=== PATIENT | female | born 1965 | race Caucasian/White ===

== ENCOUNTER 2020-02-17 13:30 | Outpatient (REF) | payer OTHER, SELFPAY ==
--- NOTE | 2020-02-17 | MM_ITS ---
EXAMINATION: MM SCREENING DIGITAL BREAST TOMOSYNTHESIS, BILATERAL CLINICAL INFORMATION: Screening. Asymptomatic. The lifetime risk of breast cancer based on the Tyrer-Cuzick Model is 12%. COMPARISON: Mammography: 12/08/2018, 10/16/2017, 10/03/2016 TECHNIQUE: Digital breast tomosynthesis is performed in both the craniocaudal and mediolateral oblique views along with computer-aided detection (CAD). Synthesized 2D images are generated from the tomosynthesis. FINDINGS: There are scattered areas of fibroglandular density (ACR BI-RADS breast composition Category b). There is no interval mass or architectural abnormality. Scattered punctate calcifications are similar to prior diagnostic exams. No significant changes from prior studies studies. No developing density. The axilla and skin contours are unremarkable. IMPRESSION: No significant changes from prior exams. ASSESSMENT: BI-RADS 2: Benign RECOMMENDATION: Routine annual mammography screening. This patient's information was entered into a reminder system with a target due date for their next mammogram.
== END 2020-02-17 13:31 | disposition home or self-care (01) ==
LOC: HO.MAMMO 13:30
PROVIDERS: PCP Internal Medicine; Visit Provider Internal Medicine
DX: Z12.31 Encounter for screening mammogram for malignant neoplasm of breast (principal)
CPT/HCPCS: 77063; 77067

== ENCOUNTER 2020-02-28 09:08 | Outpatient (REF) | payer OTHER, SELFPAY ==
[2020-02-28 09:41] LABS: MANUAL DIFF FLAG NO
[2020-02-28 09:54] LABS: Basophils Percent Auto 0.8 % (0-2); Eosinophils Percent Auto 0.6 % (0-4); Hematocrit 40.8 % (37-47); Hemoglobin 13.2 g/dl (12.0-16.0); Imm Gran Abs Auto 0.01 X10*3/uL (0.00-0.03); Imm Gran Pct Auto 0.2 % (0.0-0.4); Lymphocytes Absolute Auto 1.8 X10*3/uL (1.2-4.9); Lymphocytes Percent Auto 35.5 % (20-40); Mean Corpuscular HGB Conc 32.4 g/dl (31.0-35.0); Mean Corpuscular Hemoglobin 30.6 pg (27.0-33.0); Mean Corpuscular Volume 94.7 fL (80-98); Mean Platelet Volume 10.8 fL (9.4-12.3); Monocytes Absolute Auto 0.4 X10*3/uL (0.1-1.2); Monocytes Percent Auto 8.8 % (2-11); Neutrophils Absolute Auto 2.7 X10*3/uL (2.0-8.3); Neutrophils Percent Auto 54.1 % (45-73); Platelet Count 281 X10*3/uL (160-400); Red Blood Count 4.31 X10*6/uL (4.20-5.50); Red Cell Distribution Width 11.5 % (11.0-16.0)
[2020-02-28 10:23] LABS: Alanine Aminotransferase 15 U/L (0-31); Albumin Level 4.4 g/dL (3.5-5.0); Alkaline Phosphatase 80 U/L (39-117); Anion Gap 11 (12-20); Aspartate Amino Transferase 16 U/L (5-31); Bilirubin Total 0.7 mg/dL (0.0-1.0); Blood Urea Nitrogen 26 mg/dL (9-16); Calcium 9.4 mg/dL (8.4-10.2); Carbon Dioxide 31 mmol/L (22-29); Chloride 103 mmol/L (96-108); Cholesterol 233 mg/dL; Estimated Glomerular Filt Rate > 60; Glucose Fasting 100 mg/dL (60-99); HDL Cholesterol 77 mg/dL; LDL Cholesterol Calculated 132 mg/dl; Potassium 4.2 mmol/l (3.3-5.1); Sodium 141 mmol/L (135-145); Total Protein 7.2 g/dL (6.5-8.0); Triglycerides 120 mg/dL
[2020-02-28 10:41] LABS: Free T4 (Free Thyroxine) 1.54 ng/dL (0.71-1.85); Thyroid Stimulating Hormone 0.12 mIU/mL (0.32-4.0)
== END 2020-02-28 09:09 | disposition home or self-care (01) ==
LOC: HO.LAB 09:08
PROVIDERS: Absent Provider Internal Medicine Endocrinology, Diabetes & Metabolism; PCP Internal Medicine; Visit Provider Internal Medicine
DX: E78.5 Hyperlipidemia, unspecified (principal); R73.01 Impaired fasting glucose; E66.3 Overweight; K21.9 Gastro-esophageal reflux disease without esophagitis; E55.9 Vitamin D deficiency, unspecified; E89.0 Postprocedural hypothyroidism
CPT/HCPCS: 36415; 80053; 80061; 82306; 84439; 84443; 85025

== ENCOUNTER → 2020-03-13 11:06 | Outpatient (BNVA) | payer OTHER, MEDICARE, MEDICAID, SELFPAY | PROVIDERS: PCP Internal Medicine; Referring Provider Internal Medicine; Visit Provider Internal Medicine Endocrinology, Diabetes & Metabolism | DX: Z13.89 Encounter for screening for other disorder (principal) | CPT/HCPCS: 99212 ==

== ENCOUNTER 2020-05-29 09:06 | Outpatient (REF) | payer OTHER, SELFPAY ==
[2020-05-29 10:16] LABS: Free T4 (Free Thyroxine) 1.14 ng/dL (0.71-1.85); Thyroid Stimulating Hormone 0.49 uIU/mL (0.32-4.0)
== END 2020-05-29 09:07 | disposition home or self-care (01) ==
LOC: HO.LAB 09:06
PROVIDERS: PCP Internal Medicine; Visit Provider Internal Medicine Endocrinology, Diabetes & Metabolism
DX: E03.9 Hypothyroidism, unspecified (principal); E55.9 Vitamin D deficiency, unspecified
CPT/HCPCS: 36415; 84439; 84443

== ENCOUNTER 2020-07-26 09:26 | Outpatient (REF) | payer OTHER, SELFPAY ==
[2020-07-26 10:07] LABS: MANUAL DIFF FLAG NO
[2020-07-26 10:18] LABS: Basophils Percent Auto 0.8 % (0-2); Eosinophils Percent Auto 0.8 % (0-4); Hematocrit 39.3 % (37-47); Hemoglobin 12.5 g/dl (12.0-16.0); Imm Gran Abs Auto 0.02 X10*3/uL (0.00-0.03); Imm Gran Pct Auto 0.4 % (0.0-0.4); Lymphocytes Absolute Auto 1.8 X10*3/uL (1.2-4.9); Lymphocytes Percent Auto 34.5 % (20-40); Mean Corpuscular HGB Conc 31.8 g/dl (31.0-35.0); Mean Corpuscular Hemoglobin 30.7 pg (27.0-33.0); Mean Corpuscular Volume 96.6 fL (80-98); Mean Platelet Volume 10.5 fL (9.4-12.3); Monocytes Absolute Auto 0.4 X10*3/uL (0.1-1.2); Monocytes Percent Auto 7.5 % (2-11); Platelet Count 300 X10*3/uL (160-400); Red Blood Count 4.07 X10*6/uL (4.20-5.50); Red Cell Distribution Width 11.9 % (11.0-16.0); White Blood Count 5.3 X10*3/uL (4.8-10.8)
[2020-07-26 11:17] LABS: Alanine Aminotransferase 13 U/L (0-31); Albumin Level 4.1 g/dL (3.5-5.0); Alkaline Phosphatase 97 U/L (39-117); Anion Gap 16 (12-20); Aspartate Amino Transferase 18 U/L (5-31); Bilirubin Total 0.4 mg/dL (0.0-1.0); Blood Urea Nitrogen 22 mg/dL (9-16); Calcium 9.4 mg/dL (8.4-10.2); Carbon Dioxide 30 mmol/L (22-29); Chloride 102 mmol/L (96-108); Cholesterol 238 mg/dL; Estimated Glomerular Filt Rate > 60; Glucose Fasting 97 mg/dL (60-99); HDL Cholesterol 80 mg/dL; LDL Cholesterol Calculated 132 mg/dl; Potassium 4.8 mmol/L (3.3-5.1); Sodium 143 mmol/L (135-145); Total Protein 6.9 g/dL (6.5-8.0); Triglycerides 133 mg/dL
== END 2020-07-26 09:27 | disposition home or self-care (01) ==
LOC: HO.LAB 09:26
PROVIDERS: PCP Internal Medicine; Visit Provider Internal Medicine
DX: E78.00 Pure hypercholesterolemia, unspecified (principal); G25.81 Restless legs syndrome; K21.9 Gastro-esophageal reflux disease without esophagitis
CPT/HCPCS: 36415; 80053; 80061; 85025

== ENCOUNTER 2020-09-05 09:03 | Outpatient (REF) | payer OTHER, SELFPAY ==
--- NOTE | ~2020-09-05 | XR_ITS ---
EXAMINATION: XR SHOULDER, LEFT CLINICAL INFORMATION: Pain COMPARISON: None TECHNIQUE: AP external rotation, Grashey, scapular Y, and axillary views of the left shoulder. FINDINGS: Bone alignment is normal. No fracture or dislocation is seen. The glenohumeral joint is normal. There is arthritis at the acromioclavicular joint. Soft tissues are unremarkable. XR/XR shoulder LT min 2V IMPRESSION: Arthritis at the acromioclavicular joint.
[2020-09-05 10:18] LABS: Free T4 (Free Thyroxine) 1.15 ng/dL (0.71-1.85); Thyroid Stimulating Hormone 0.88 uIU/mL (0.32-4.0)
== END 2020-09-05 09:04 | disposition home or self-care (01) ==
LOC: HO.LAB 09:03
PROVIDERS: Absent Provider Internal Medicine Endocrinology, Diabetes & Metabolism; PCP Internal Medicine; Visit Provider Internal Medicine
DX: M25.512 Pain in left shoulder (principal); E55.9 Vitamin D deficiency, unspecified
CPT/HCPCS: 36415; 73030; 84439; 84443

== ENCOUNTER → 2020-09-11 11:02 | Outpatient (BNVA) | payer OTHER, SELFPAY | PROVIDERS: PCP Internal Medicine; Visit Provider Internal Medicine Endocrinology, Diabetes & Metabolism | DX: E89.0 Postprocedural hypothyroidism (principal); E55.9 Vitamin D deficiency, unspecified | CPT/HCPCS: 99212 ==

== ENCOUNTER 2020-11-13 08:52 | Outpatient (REF) | payer OTHER, SELFPAY ==
[2020-11-13 09:31] LABS: MANUAL DIFF FLAG NO
[2020-11-13 09:38] LABS: Basophils Percent Auto 0.7 % (0-2); Eosinophils Percent Auto 0.7 % (0-4); Hematocrit 39.8 % (37-47); Lymphocytes Absolute Auto 1.4 X10*3/uL (1.2-4.9); Mean Corpuscular HGB Conc 32.7 g/dl (31.0-35.0); Mean Corpuscular Hemoglobin 31.2 pg (27.0-33.0); Mean Corpuscular Volume 95.4 fL (80-98); Mean Platelet Volume 10.4 fL (9.4-12.3); Monocytes Absolute Auto 0.3 X10*3/uL (0.1-1.2); Monocytes Percent Auto 7.9 % (2-11); Neutrophils Absolute Auto 2.4 X10*3/uL (2.0-8.3); Neutrophils Percent Auto 56.7 % (45-73); Platelet Count 248 X10*3/uL (160-400); Red Blood Count 4.17 X10*6/uL (4.20-5.50); Red Cell Distribution Width 11.8 % (11.0-16.0); White Blood Count 4.2 X10*3/uL (4.8-10.8)
[2020-11-13 09:53] LABS: Alanine Aminotransferase 14 U/L (0-31); Albumin Level 4.2 g/dL (3.5-5.0); Alkaline Phosphatase 97 U/L (39-117); Anion Gap 13 (12-20); Aspartate Amino Transferase 16 U/L (5-31); Bilirubin Total 0.6 mg/dL (0.0-1.0); Blood Urea Nitrogen 23 mg/dL (9-16); Calcium 9.5 mg/dL (8.4-10.2); Carbon Dioxide 29 mmol/L (22-29); Chloride 104 mmol/L (96-108); Cholesterol 245 mg/dL; Estimated Glomerular Filt Rate > 60; Glucose Fasting 105 mg/dL (60-99); HDL Cholesterol 72 mg/dL; LDL Cholesterol Calculated 137 mg/dl; Potassium 4.3 mmol/L (3.3-5.1); Sodium 142 mmol/L (135-145); Total Protein 7.2 g/dL (6.5-8.0); Triglycerides 180 mg/dL
[2020-11-13 10:14] LABS: Free T4 (Free Thyroxine) 1.29 ng/dL (0.71-1.85); Thyroid Stimulating Hormone 1.04 uIU/mL (0.32-4.0); Vitamin D 25-OH Total 31.1 ng/mL (>30)
[2020-11-13 10:15] LABS: Free T4 (Free Thyroxine) 1.25 ng/dL (0.71-1.85); Thyroid Stimulating Hormone 1.03 uIU/mL (0.32-4.0)
== END 2020-11-13 08:53 | disposition home or self-care (01) ==
LOC: HO.LAB 08:52
PROVIDERS: Absent Provider Internal Medicine; PCP Internal Medicine; Visit Provider Internal Medicine Endocrinology, Diabetes & Metabolism
DX: E89.0 Postprocedural hypothyroidism (principal); E78.00 Pure hypercholesterolemia, unspecified; R73.01 Impaired fasting glucose; K21.9 Gastro-esophageal reflux disease without esophagitis; E66.3 Overweight; E55.9 Vitamin D deficiency, unspecified
CPT/HCPCS: 36415; 80053; 80061; 82306; 84439; 84443; 85025

== ENCOUNTER 2021-04-05 08:28 | Outpatient (REF) | payer OTHER, SELFPAY ==
[2021-04-05 09:39] LABS: MANUAL DIFF FLAG SCAN; Monocytes Absolute Auto 0.3 X10*3/uL (0.1-1.2); PLT CLUMP 1; SCAN SMEAR FLAG 1
[2021-04-05 09:41] LABS: Basophils Percent Auto 0.9 % (0-2); Eosinophils Percent Auto 0.9 % (0-4); Hematocrit 40.6 % (37.0-47.0); Hemoglobin 13.3 g/dl (12.0-16.0); Lymphocytes Absolute Auto 1.6 X10*3/uL (1.2-4.9); Lymphocytes Percent Auto 34.2 % (20-40); Mean Corpuscular HGB Conc 32.8 g/dl (31.0-35.0); Mean Corpuscular Hemoglobin 31.1 pg (27.0-33.0); Mean Corpuscular Volume 95.1 fL (80.0-98.0); Mean Platelet Volume 11.7 fL (9.4-12.3); Monocytes Percent Auto 7.5 % (2-11); Neutrophils Absolute Auto 2.6 x10*3/uL (2.0-8.3); Neutrophils Percent Auto 56.5 % (45-73); Platelet Count 154 X10*3/uL (160-400); Red Blood Count 4.27 X10*6/uL (4.20-5.50); Red Cell Distribution Width 11.9 % (11.0-16.0); White Blood Count 4.5 X10*3/uL (4.8-10.8)
[2021-04-05 10:06] LABS: SLIDE REVIEW VERIFIED
[2021-04-05 10:14] LABS: Appearance Urine CLEAR; Color Urine YELLOW; Glucose Urine UA NEG (NEG); Leukocyte Esterase Urine NEG (NEG); Nitrite Urine NEG (NEG); Specific Gravity - Urine 1.015 (1.005-1.025); Urine Blood NEG (NEG); Urine Ketones NEG (NEG); Urine Protein NEG (NEG-TRACE)
[2021-04-05 10:23] LABS: Alanine Aminotransferase 16 U/L (0-31); Albumin Level 4.2 g/dL (3.5-5.0); Alkaline Phosphatase 86 U/L (39-117); Anion Gap 12 (12-20); Aspartate Amino Transferase 23 U/L (5-31); Bilirubin Total 0.8 mg/dL (0.0-1.0); Blood Urea Nitrogen 21 mg/dL (9-16); Calcium 9.7 mg/dL (8.4-10.2); Carbon Dioxide 27 mmol/L (22-29); Chloride 105 mmol/L (96-108); Cholesterol 243 mg/dL; Estimated Glomerular Filt Rate > 60; Glucose Fasting 106 mg/dL (60-99); HDL Cholesterol 79 mg/dL; LDL Cholesterol Calculated 142 mg/dl; Potassium 4.2 mmol/L (3.3-5.1); Sodium 140 mmol/L (135-145); Total Protein 7.4 g/dL (6.5-8.0); Triglycerides 111 mg/dL
[2021-04-05 10:25] LABS: Free T4 (Free Thyroxine) 1.11 ng/dL (0.71-1.85); Thyroid Stimulating Hormone 2.59 uIU/mL (0.32-4.0)
[2021-04-05 10:35] LABS: Erythrocyte Sedimentation Rate 12 MM/HR (0-20)
== END 2021-04-05 08:29 | disposition home or self-care (01) ==
LOC: HO.LAB 08:28
PROVIDERS: PCP Internal Medicine; Visit Provider Internal Medicine
DX: R73.01 Impaired fasting glucose (principal); E03.9 Hypothyroidism, unspecified; M79.7 Fibromyalgia; E78.00 Pure hypercholesterolemia, unspecified; I10 Essential (primary) hypertension; K21.9 Gastro-esophageal reflux disease without esophagitis
CPT/HCPCS: 36415; 80053; 80061; 81003; 84439; 84443; 85025; 85652

== ENCOUNTER 2021-05-10 12:32 | Outpatient (REF) | payer OTHER, SELFPAY ==
--- NOTE | ~2021-05-10 | MM_ITS ---
EXAMINATION: MM SCREENING DIGITAL BREAST TOMOSYNTHESIS, BILATERAL CLINICAL INFORMATION: Screening. Asymptomatic. The lifetime risk of breast cancer based on the Tyrer-Cuzick Model is 9.5%. COMPARISON: Mammography: 02/17/2020 and studies dating back to 03/30/2012 TECHNIQUE: Digital breast tomosynthesis is performed in both the craniocaudal and mediolateral oblique views along with computer-aided detection (CAD). Synthesized 2-D images are generated from the tomosynthesis. Right exaggerated craniocaudal view also performed. FINDINGS: There are scattered areas of fibroglandular density (ACR BI-RADS breast composition Category b). There are some increasing calcifications seen about the anterior aspect of the left breast but which are seen to change configuration between craniocaudal and mediolateral oblique projections representing milk of calcium within microcysts. Within the deep medial aspect of the right breast, there is a 4 x 2 mm partially circumscribed density with a few calcifications which was not definitely seen on prior studies. Recommend spot magnification view in craniocaudal projection. On tomography, the lesion would seem to lie within the inferior aspect of the breast but does not appear to be included on the imaging in exaggerated craniocaudal view and mediolateral oblique projection. MM/MM tomosynthesis screening BI IMPRESSION: Bilateral increasing calcifications some of which appear to be related to milk of calcium in microcysts. Partially circumscribed density about the deep medial aspect of the right breast containing some calcifications for which spot magnification film is recommended. ASSESSMENT: BI-RADS 0: Incomplete - Need Additional Imaging Evaluation. RECOMMENDATION: 1. Additional views of the right breast (spot magnification view in craniocaudal projection). 2. Targeted ultrasound if warranted after review of the additional views. 3. Radiology department staff will contact the patient for additional imaging. This patient's information was entered into a reminder system with a target due date for their next mammogram.
== END 2021-05-10 12:33 | disposition home or self-care (01) ==
LOC: HO.MAMMO 12:32
PROVIDERS: Visit Provider Internal Medicine
DX: Z12.31 Encounter for screening mammogram for malignant neoplasm of breast (principal)
CPT/HCPCS: 77063; 77067

== ENCOUNTER 2021-06-19 12:48 | Outpatient (REF) | payer OTHER, SELFPAY ==
--- NOTE | ~2021-06-19 | MM_ITS ---
EXAMINATION: MM DIAGNOSTIC DIGITAL MAMMOGRAPHY, RIGHT CLINICAL INFORMATION: Recall from screening for question of punctate density with calcification posterior medial right breast on CC view. COMPARISON: Mammography: 05/10/2021 and prior studies dating back to 07/28/2015. TECHNIQUE: Digital mammography is performed in the following views: Spot magnification CC x2. FINDINGS: There are scattered areas of fibroglandular density (ACR BI-RADS breast composition Category b). The additional views demonstrate a punctate fibroglandular density in the area of recent imaging interest which is similar to prior exams dating back to 2016. There is no developing density or interval mass or architectural abnormality. There are no grouped pleomorphic or suspicious calcifications. Results are provided to the patient at time of visit. MM/MM added views RT IMPRESSION: No significant change from prior studies. ASSESSMENT: BI-RADS 2: Benign RECOMMENDATION: Routine annual mammography screening. This patient's information was entered into a reminder system with a target due date for their next mammogram.
== END 2021-06-19 12:49 | disposition home or self-care (01) ==
LOC: HO.MAMMO 12:48
PROVIDERS: PCP Internal Medicine; Visit Provider Internal Medicine
DX: R92.2 Inconclusive mammogram (principal)
CPT/HCPCS: 77065

== ENCOUNTER 2021-08-20 08:29 | Outpatient (REF) | payer OTHER, SELFPAY ==
[2021-08-20 09:46] LABS: Alanine Aminotransferase 17 U/L (0-31); Albumin Level 4.3 g/dL (3.5-5.0); Alkaline Phosphatase 86 U/L (39-117); Anion Gap 12 (12-20); Aspartate Amino Transferase 17 U/L (5-31); Bilirubin Total 0.6 mg/dL (0.0-1.0); Blood Urea Nitrogen 24 mg/dL (9-16); Carbon Dioxide 31 mmol/L (22-29); Chloride 101 mmol/L (96-108); Cholesterol 268 mg/dL; Estimated Glomerular Filt Rate > 60; Glucose Fasting 105 mg/dL (60-99); HDL Cholesterol 79 mg/dL; LDL Cholesterol Calculated 165 mg/dl; Potassium 4.5 mmol/L (3.3-5.1); Sodium 139 mmol/L (135-145); Total Protein 7.3 g/dL (6.5-8.0); Triglycerides 120 mg/dL
[2021-08-20 10:19] LABS: Vitamin D 25-OH Total 32.4 ng/mL (>30)
== END 2021-08-20 08:30 | disposition home or self-care (01) ==
LOC: HO.LAB 08:29
PROVIDERS: PCP Internal Medicine; Visit Provider Internal Medicine
DX: E03.9 Hypothyroidism, unspecified (principal); E55.9 Vitamin D deficiency, unspecified; E78.00 Pure hypercholesterolemia, unspecified
CPT/HCPCS: 36415; 80053; 80061; 82306; 84439; 84443

== ENCOUNTER → 2021-09-19 12:33 | Outpatient (BNVA) | payer OTHER, SELFPAY | PROVIDERS: PCP Internal Medicine; Visit Provider Internal Medicine Endocrinology, Diabetes & Metabolism | DX: E89.0 Postprocedural hypothyroidism (principal); E55.9 Vitamin D deficiency, unspecified | CPT/HCPCS: 99212 ==

== ENCOUNTER 2021-11-29 18:08 | Outpatient (REF) | payer OTHER, SELFPAY | END 2021-11-29 18:09 | disposition home or self-care (01) | LOC: HO.LNP 18:08 | PROVIDERS: Visit Provider Nurse Practitioner Family | DX: L98.9 Disorder of the skin and subcutaneous tissue, unspecified (principal) | CPT/HCPCS: 87071; 87205 ==

== ENCOUNTER → 2021-12-11 13:03 | Outpatient (BNVA) | payer OTHER, SELFPAY | PROVIDERS: PCP Internal Medicine; Visit Provider Surgery | DX: L72.3 Sebaceous cyst (principal); L08.9 Local infection of the skin and subcutaneous tissue, unspecified; F79 Unspecified intellectual disabilities; Z79.899 Other long term (current) drug therapy | CPT/HCPCS: 99202 ==

== ENCOUNTER → 2022-01-10 13:19 | Outpatient (BNVA) | payer OTHER, SELFPAY | PROVIDERS: PCP Internal Medicine; Visit Provider Surgery | DX: L72.3 Sebaceous cyst (principal); L08.9 Local infection of the skin and subcutaneous tissue, unspecified | CPT/HCPCS: 99212 ==

== ENCOUNTER 2022-07-01 09:45 | Outpatient (REF) | payer OTHER, SELFPAY ==
[2022-07-01 10:06] LABS: MANUAL DIFF FLAG NO
[2022-07-01 12:05] LABS: Basophils Percent Auto 0.8 % (0-2); Eosinophils Percent Auto 0.4 % (0-4); Hematocrit 38.9 % (37.0-47.0); Hemoglobin 12.6 g/dl (12.0-16.0); Imm Gran Abs Auto 0.01 X10*3/uL (0.00-0.03); Imm Gran Pct Auto 0.2 % (0.0-0.4); Lymphocytes Absolute Auto 1.9 X10*3/uL (1.2-4.9); Lymphocytes Percent Auto 37.6 % (20-40); Mean Corpuscular HGB Conc 32.4 g/dl (31.0-35.0); Mean Corpuscular Hemoglobin 30.7 pg (27.0-33.0); Mean Corpuscular Volume 94.6 fL (80.0-98.0); Mean Platelet Volume 10.7 fL (9.4-12.3); Monocytes Absolute Auto 0.5 X10*3/uL (0.1-1.2); Monocytes Percent Auto 8.9 % (2-11); Neutrophils Absolute Auto 2.6 x10*3/uL (2.0-8.3); Neutrophils Percent Auto 52.1 % (45-73); Platelet Count 294 X10*3/uL (160-400); Red Blood Count 4.11 X10*6/uL (4.20-5.50); Red Cell Distribution Width 11.9 % (11.0-16.0); White Blood Count 5.1 X10*3/uL (4.8-10.8)
[2022-07-01 12:20] LABS: Appearance Urine Clear; Color Urine Yellow; Glucose Urine UA Negative (Negative); Leukocyte Esterase Urine Trace (Negative); Nitrite Urine Negative (Negative); PH 6.5 (5.0-9.0); UMIC TRIGGER UACC YES; Urine Blood Negative (Negative); Urine Ketones Negative (Negative); Urine Protein Negative (Neg-Trace)
[2022-07-01 12:24] LABS: Bacteria Urine None Seen (None Seen); Hyaline Casts Urine 0-2 /LPF (0-2); RBC Urine 0-2 /HPF (0-2); Squamous Epithelial Cell Urine 0-2 /HPF (0-2); WBC Urine 0-5 /HPF (0-5)
[2022-07-01 13:10] LABS: Alanine Aminotransferase 13 U/L (0-31); Albumin Level 4.1 g/dL (3.5-5.0); Alkaline Phosphatase 81 U/L (39-117); Anion Gap 15 (12-20); Aspartate Amino Transferase 18 U/L (5-31); Bilirubin Total 0.7 mg/dL (0.0-1.0); Blood Urea Nitrogen 22 mg/dL (9-16); Calcium 9.4 mg/dL (8.4-10.2); Carbon Dioxide 29 mmol/L (22-29); Chloride 104 mmol/L (96-108); Cholesterol 271 mg/dL; Estimated Glomerular Filt Rate > 60; Glucose Fasting 96 mg/dL (60-99); HDL Cholesterol 76 mg/dL; LDL Cholesterol Calculated 173 mg/dl; Potassium 4.5 mmol/L (3.3-5.1); Sodium 143 mmol/L (135-145); Triglycerides 113 mg/dL
[2022-07-01 13:14] LABS: Free T4 (Free Thyroxine) 1.24 ng/dL (0.71-1.85); Vitamin D 25-OH Total 26.9 ng/mL (>30)
== END 2022-07-01 09:46 | disposition home or self-care (01) ==
LOC: HO.LAB 09:45
PROVIDERS: Internal Medicine Endocrinology, Diabetes & Metabolism; PCP Internal Medicine; Visit Provider Internal Medicine
DX: E03.9 Hypothyroidism, unspecified (principal); E55.9 Vitamin D deficiency, unspecified; I10 Essential (primary) hypertension; E78.00 Pure hypercholesterolemia, unspecified
CPT/HCPCS: 36415; 80053; 80061; 81001; 81003; 82306; 84439; 84443; 85025

== ENCOUNTER 2022-07-03 12:33 | Outpatient (REF) | payer OTHER, SELFPAY ==
--- NOTE | ~2022-07-03 | MM_ITS ---
EXAMINATION: MM SCREENING DIGITAL BREAST TOMOSYNTHESIS, BILATERAL CLINICAL INFORMATION: Screening. Asymptomatic. The lifetime risk of breast cancer based on the Tyrer-Cuzick Model is 11%. COMPARISON: Mammography: 06/19/2021, 05/10/2021, 02/17/2020 TECHNIQUE: Digital breast tomosynthesis is performed in both the craniocaudal and mediolateral oblique views along with computer-aided detection (CAD). Synthesized 2D images are generated from the tomosynthesis. Additional left MLO view is provided. FINDINGS: There are scattered areas of fibroglandular density (ACR BI-RADS breast composition Category b). There are no significant masses, abnormal calcifications, or other abnormalities. Parenchymal pattern is similar to prior studies. There is no developing density or architectural abnormality. The axilla and skin contours are unremarkable. No significant changes. MM/MM tomosynthesis screening BI IMPRESSION: No mammographic evidence of malignancy. ASSESSMENT: BI-RADS 1: Negative RECOMMENDATION: Routine annual mammography screening. This patient's information was entered into a reminder system with a target due date for their next mammogram.
== END 2022-07-03 12:34 | disposition home or self-care (01) ==
LOC: HO.MAMMO 12:33
PROVIDERS: PCP Internal Medicine; Visit Provider Internal Medicine
DX: Z12.31 Encounter for screening mammogram for malignant neoplasm of breast (principal)
CPT/HCPCS: 77063; 77067

== ENCOUNTER 2022-10-25 08:07 | Outpatient (REF) | payer OTHER, SELFPAY ==
[2022-10-25 09:28] LABS: Alanine Aminotransferase 15 U/L (0-31); Albumin Level 4.2 g/dL (3.5-5.0); Alkaline Phosphatase 84 U/L (39-117); Anion Gap 11 (12-20); Aspartate Amino Transferase 20 U/L (5-31); Bilirubin Total 0.7 mg/dL (0.0-1.0); Blood Urea Nitrogen 23 mg/dL (9-16); Calcium 9.7 mg/dL (8.4-10.2); Carbon Dioxide 29 mmol/L (22-29); Chloride 106 mmol/L (96-108); Cholesterol 223 mg/dL; Estimated Glomerular Filt Rate > 60; Glucose Fasting 107 mg/dL (60-99); HDL Cholesterol 79 mg/dL; LDL Cholesterol Calculated 124 mg/dl; Sodium 142 mmol/L (135-145); Total Protein 7.3 g/dL (6.5-8.0); Triglycerides 100 mg/dL
[2022-10-25 09:32] LABS: Thyroid Stimulating Hormone 15.54 uIU/mL (0.32-4.0)
[2022-10-27 01:48] LABS: Triiodothyronine T3 Total 74 ng/dL (76-181)
== END 2022-10-25 08:08 | disposition home or self-care (01) ==
LOC: HO.LAB 08:07
PROVIDERS: PCP Internal Medicine; Visit Provider Internal Medicine
DX: E89.0 Postprocedural hypothyroidism (principal); E78.00 Pure hypercholesterolemia, unspecified
CPT/HCPCS: 36415; 80053; 80061; 84439; 84443; 84480

== ENCOUNTER 2023-01-20 08:53 | Outpatient (REF) | payer OTHER, SELFPAY ==
[2023-01-20 10:46] LABS: Alanine Aminotransferase 15 U/L (0-31); Albumin Level 4.2 g/dL (3.5-5.0); Alkaline Phosphatase 89 U/L (39-117); Anion Gap 10 (12-20); Aspartate Amino Transferase 20 U/L (5-31); Bilirubin Total 0.4 mg/dL (0.0-1.0); Blood Urea Nitrogen 23 mg/dL (9-16); Calcium 9.5 mg/dL (8.4-10.2); Carbon Dioxide 29 mmol/L (22-29); Chloride 105 mmol/L (96-108); Cholesterol 277 mg/dL (<200); Estimated Glomerular Filt Rate 59; Glucose Fasting 96 mg/dL (60-99); HDL Cholesterol 82 mg/dL (>40); LDL Cholesterol Calculated 169 mg/dL (<100); Potassium 4.1 mmol/L (3.3-5.1); Sodium 140 mmol/L (135-145); Total Protein 7.3 g/dL (6.5-8.0); Triglycerides 130 mg/dL (<150)
[2023-01-20 11:01] LABS: Free T4 (Free Thyroxine) 0.69 ng/dL (0.71-1.85); Thyroid Stimulating Hormone 25.36 uIU/mL (0.32-4.0)
== END 2023-01-20 08:54 | disposition home or self-care (01) ==
LOC: HO.LAB 08:53
PROVIDERS: PCP Internal Medicine; Visit Provider Internal Medicine
DX: E03.9 Hypothyroidism, unspecified (principal); E78.00 Pure hypercholesterolemia, unspecified
CPT/HCPCS: 36415; 80053; 80061; 84439; 84443

== ENCOUNTER 2023-07-10 13:50 | Outpatient (REF) | payer OTHER, SELFPAY | END 2023-07-10 13:51 | disposition home or self-care (01) | LOC: HO.MAMMO 13:50 | PROVIDERS: PCP Internal Medicine; Visit Provider Internal Medicine | DX: Z12.31 Encounter for screening mammogram for malignant neoplasm of breast (principal) | CPT/HCPCS: 77063; 77067 ==

== ENCOUNTER → 2023-07-10 14:45 | Outpatient (BNV) | payer OTHER, SELFPAY | PROVIDERS: PCP Internal Medicine; Visit Provider Radiology Diagnostic Radiology | DX: Z12.31 Encounter for screening mammogram for malignant neoplasm of breast (principal) | CPT/HCPCS: 77063; 77067 ==

== ENCOUNTER 2023-07-28 08:31 | Outpatient (REF) | payer OTHER, SELFPAY ==
[2023-07-28 08:53] LABS: MANUAL DIFF FLAG NO
[2023-07-28 09:21] LABS: Basophils Absolute Auto 0.1 X10*3/uL (0.0-0.2); Basophils Percent Auto 1.1 % (0-2); Eosinophils Percent Auto 0.7 % (0-4); Hematocrit 37.9 % (37.0-47.0); Hemoglobin 12.3 g/dl (12.0-16.0); Imm Gran Abs Auto 0.01 X10*3/uL (0.00-0.03); Imm Gran Pct Auto 0.2 % (0.0-0.4); Lymphocytes Absolute Auto 1.6 X10*3/uL (1.2-4.9); Lymphocytes Percent Auto 34.4 % (20-40); Mean Corpuscular HGB Conc 32.5 g/dl (31.0-35.0); Mean Corpuscular Hemoglobin 31.3 pg (27.0-33.0); Mean Corpuscular Volume 96.4 fL (80.0-98.0); Mean Platelet Volume 9.9 fL (9.4-12.3); Monocytes Absolute Auto 0.4 X10*3/uL (0.1-1.2); Neutrophils Absolute Auto 2.5 x10*3/uL (2.0-8.3); Neutrophils Percent Auto 54.6 % (45-73); Platelet Count 296 X10*3/uL (160-400); Red Blood Count 3.93 X10*6/uL (4.20-5.50); Red Cell Distribution Width 11.9 % (11.0-16.0); White Blood Count 4.6 X10*3/uL (4.8-10.8)
[2023-07-28 09:53] LABS: Estimated Average Glucose 114 mg/dL; Hemoglobin A1c % 5.6 % (<6.0)
[2023-07-28 10:02] LABS: Alanine Aminotransferase 16 U/L (0-31); Alkaline Phosphatase 76 U/L (39-117); Anion Gap 12 (12-20); Aspartate Amino Transferase 19 U/L (5-31); Bilirubin Total 0.3 mg/dL (0.0-1.0); Blood Urea Nitrogen 28 mg/dL (9-16); Calcium 9.5 mg/dL (8.4-10.2); Carbon Dioxide 28 mmol/L (22-29); Chloride 105 mmol/L (96-108); Cholesterol 260 mg/dL (<200); Estimated Glomerular Filt Rate > 60; Glucose Fasting 107 mg/dL (60-99); HDL Cholesterol 88 mg/dL (>40); LDL Cholesterol Calculated 151 mg/dL (<100); Potassium 4.1 mmol/L (3.3-5.1); Sodium 141 mmol/L (135-145); Total Protein 7.2 g/dL (6.5-8.0); Triglycerides 108 mg/dL (<150)
[2023-07-28 10:14] LABS: Appearance Urine Clear; Color Urine Yellow; Glucose Urine UA Negative (Negative); Leukocyte Esterase Urine Trace (Negative); Nitrite Urine Negative (Negative); Specific Gravity - Urine 1.025 (1.005-1.025); UMIC TRIGGER UACC YES; Urine Blood Negative (Negative); Urine Ketones Negative (Negative); Urine Protein Negative (Neg-Trace)
[2023-07-28 10:18] LABS: Bacteria Urine None Seen (None Seen); Hyaline Casts Urine 0-2 /LPF (0-2); RBC Urine 0-2 /HPF (0-2); Squamous Epithelial Cell Urine 0-2 /HPF (0-2); WBC Urine 0-5 /HPF (0-5)
[2023-07-28 10:22] LABS: Free T4 (Free Thyroxine) 0.71 ng/dL (0.71-1.85); Thyroid Stimulating Hormone 16.58 uIU/mL (0.32-4.0); Vitamin D 25-OH Total 27.5 ng/mL (>30)
== END 2023-07-28 08:32 | disposition home or self-care (01) ==
LOC: HO.LAB 08:31
PROVIDERS: PCP Internal Medicine; Visit Provider Internal Medicine
DX: E55.9 Vitamin D deficiency, unspecified (principal); R30.0 Dysuria; E03.9 Hypothyroidism, unspecified; E78.00 Pure hypercholesterolemia, unspecified; R73.01 Impaired fasting glucose
CPT/HCPCS: 36415; 80053; 80061; 81001; 82306; 83036; 84439; 84443; 85025

== ENCOUNTER 2023-08-05 13:43 | Outpatient (AMB) | payer OTHER, SELFPAY ==
--- NOTE | 2023-08-05 13:46 | A.OFFPC_ITS ---
Vital Signs 08/05/23 13:48 Height 5 ft 4 in Weight 156 lb 8 oz BMI 26.9 BP 110/64 Blood Pressure Location Lt brachial Position Sitting Pulse 90 Pulse Source Pulse Oximeter Pulse Oximetry (%) 98 Oxygen Delivery Method Room Air Intake Visit Reasons: hyperlipidemia, hypothyroidism, RLS Intake Note: Patient is here to follow up on Hyperlipidemia, Hypothyroidism, RLS, IFG Building Economist Required: Yes Building Economist Language: Water Project Engineer Name: Patria (sister) Information Interpreted: non-clinical & clinical Continuity Editor: Present Accompanied by: Sister Allergies No Known Allergies Allergy (Verified 08/05/23 14:04) Medication List - Last Reconciled 08/05/23 by Juvencio Cortes MD atorvastatin 10 mg PO BEDTIME 90 days cholecalciferol (vitamin D3) 2,000 units PO DAILY 90 days levothyroxine 125 mcg PO DAILY 90 days pramipexole 1.5 mg PO BEDTIME Tobacco use date assessed: 08/05/23 Dental Screening Dental Screen Date: 08/05/23 Did you have a dental visit in the last 12 months?: Yes Did you have a dental problem in the last 6 months where you did not have access to dental care?: No Was dental information given to patient?: Patient has dentist HPI hyperlipidemia, hypothyroidism, RLS HPI Details Patient comes in today for her follow up visit States that she feels okay She denies any headaches or dizziness Denies any chest pains, no SOB No nausea/vomiting, no abdominal pain No change in bowel habits noted Had her follow up labs done last week - to discuss her results She would also like to request for Rx for some Multivitamins for her to take daily PFSH Medical History Intellectual disability Osteoarthritis of left shoulder Overweight (BMI 25.0-29.9) Depression Restless leg syndrome GERD without esophagitis Impaired fasting glucose Pure hypercholesterolemia Post-surgical hypothyroidism Vitamin D deficiency Surgical History Hx of thyroidectomy No pertinent past surgical history Family History Father Diabetes Mother Diabetes Hypertension Social History Housing: Apartment Alcohol intake: never Patient Tobacco Use Status: Never used Tobacco e-Cigarette/Vaping Use: Never Used Second Hand Smoke Exposure: No service: No Current occupational status: disabled Cognitive needs: No Hearing needs: No Vision needs: No Questionnaire PHQ-9 Over the last 2 weeks, how often have you been bothered by any of the following problems? 1. Little interest or pleasure in doing things: not at all 2. Feeling down, depressed, or hopeless: not at all 3. Trouble falling or staying asleep, or sleeping too much: not at all 4. Feeling tired or having little energy: not at all 5. Poor appetite or overeating: not at all 6. Feeling bad about yourself - or that you are a failure or have let yourself or your family down: not at all 7. Trouble concentrating on things, such as reading the newspaper or watching television: not at all 8. Moving or speaking so slowly that other people could have noticed. Or the opposite - being so fidgety or restless that you have been moving around a lot more than usual: not at all 9. Thoughts that you would be better off or of hurting yourself in some way: not at all Total score: 0 Depression Screening Interpretation: Negative Depression Screening Done: Yes 54076 - PHQ-9 Billing: Yes Source: Developed by Drs. Xavi Chan, Shelby Arenas, Christopher Gaspar and colleagues, with an educational samuel from [email or web address]. Thrive Questionnaire Date Thrive assessed: 08/05/23 I am a: Patient What is your living situation today?: I have a steady place to live Within the past 12 months, did the food you bought not last and you didn't have the money to get more?: Never true Within the past 12 months, did you worry whether your food would run out before you got money to buy more?: Never true Do you have trouble paying for medicines?: No Do you have trouble getting transportation to medical appointments?: No Do you have trouble paying your heating and electricity bill?: No Do you have trouble taking care of your child, family member or friend?: No Do you have trouble with day-to-day activities such as bathing, preparing meals, shopping, managing finances, etc.?: No Are you currently unemployed and looking for a job?: No Are you interested in more education?: No Currently or been in a relationship where the following occur: no concerns reported THRIVE Score: 0 AUDIT C Alcohol Use Questionnaire (AUDIT-C) 1. How often do you have a drink containing alcohol?: Never 3. How often do you have six or more drinks on one occasion?: Never Total Score: 0 Score Reviewed/Action Taken: Yes ARLEN-7 AMB Questionnaire ARLEN-7 Date ARLEN - 7 assessed: 08/05/23 Feeling nervous, anxious, or on edge: 0 = Not at all Not being able to stop or control worryin = Not at all Worrying too much about different things: 0 = Not at all Trouble relaxin = Not at all Being so restless that it is hard to sit still: 0 = Not at all Becoming easily annoyed or irritable: 0 = Not at all Feeling afraid as if something awful might happen: 0 = Not at all Total ARLEN-7 score (0-4 normal; 5-9 mild; 10-14 moderate; 15-21 severe): 0 Source: Developed by Drs. Xavi Chan, Shelby Arenas, Christopher Gaspar and colleagues, with an educational samuel from [email or web address]. Review of Systems Const Denies chills, Reports fatigue, Denies fever(s) and Denies headache(s) ENT Denies dysphagia, Denies dizziness, Denies otalgia, Denies headache(s), Denies odynophagia and Denies sore throat Card Denies chest pain, Denies palpitations and Denies dyspnea Resp Denies cough and Denies dyspnea GI Denies abdominal pain, Denies constipation, Denies dysphagia, Denies heartburn, Denies diarrhea, Denies nausea, Denies odynophagia and Denies vomiting Denies difficulty voiding, Denies dysuria and Denies urinary urgency Musc Denies back pain Skin/Breast Denies rash Neuro Denies dizziness and Denies headache(s) Endo Reports fatigue and Denies palpitations Physical exam (Primary Care) Vital Signs: Last Vital Signs Pulse 90 08/05/23 13:48 BP 110/64 08/05/23 13:48 Pulse Ox 98 08/05/23 13:48 Oxygen Delivery Method Room Air 04/02/24 13:48 BMI result Body Mass Index 26.9 Tobacco/Smoking Status: Tobacco use Status Tobacco use date assessed 08/05/23 08/05/23 13:52 Patient Tobacco Use Status Never used Tobacco 08/05/23 13:52 e-Cigarette/Vaping Use Never Used 08/05/23 13:52 PHQ-9: PHQ-9 Score PHQ-9: Total score 0 08/05/23 14:09 Depression Screening Interpretation: Negative Thrive Assessment: Date of Thrive Assessment Date Thrive assessed 08/05/23 08/05/23 13:52 Currently or been in a relationship where the following occur: no concerns reported Const General: no acute distress and alert HENMT Ears: TM's normal bilaterally and EAC's normal Throat: Yes posterior oropharynx normal and Yes tonsils normal (no TP congestion) Neck Neck: Yes no lymphadenopathy and Yes supple Resp Auscultation: clear to auscultation bilaterally, no rales and no wheezes Cardio Rate: regular rate Rhythm: regular rhythm Heart sounds: no murmurs GI Palpation (GI): Soft to palpation and nontender Auscultation: normal bowel sounds General: Yes no CVA tenderness Back/Spine/Pelvis Back: no CVA tenderness Skin Rashes: no rashes Extrem General: Yes no clubbing, cyanosis or edema Left upper extremity: shoulder/upper arm Details: tenderness (mild) Location: of the A-C joint and normal ROM Results Reviewed Results Reviewed: Laboratory Tests 10/25/22 07/28/23 07/28/23 08:19 08:20 08:51 WBC 4.6 L Hgb 12.3 Hct 37.9 Plt Count 296 Sodium 141 Potassium 4.1 Creatinine 0.92 Estimated GFR > 60 Fasting Glucose 107 H Hemoglobin A1c % 5.6 Calcium AST 19 ALT 16 Triglycerides 108 Cholesterol 260 H LDL Cholesterol, Calc 151 H HDL Cholesterol 88 25-OH Vitamin D Total 27.5 L TSH 16.58 H Free T4 0.71 Total T3 74 L Ur Specific [place] 1.025 Urine Protein Negative Urine Glucose (UA) Negative Urine Blood Negative Urine Nitrite Negative Ur Leukocyte Esterase Trace H 07/28/23 08:51 WBC Hgb Hct Plt Count Sodium Potassium Creatinine Estimated GFR Fasting Glucose Hemoglobin A1c % Calcium 9.5 AST ALT Triglycerides Cholesterol LDL Cholesterol, Calc HDL Cholesterol 25-OH Vitamin D Total TSH Free T4 Total T3 Ur Specific [place] Urine Protein Urine Glucose (UA) Urine Blood Urine Nitrite Ur Leukocyte Esterase Assessment and Plan Assessment & Plan (1) Pure hypercholesterolemia: Code(s): E78.00 - Pure hypercholesterolemia, unspecified Plan: Results of her labs done last week reviewed and discussed with patient - advised that her cholesterol numbers have improved slightly from previous but are still elevated Reinforced low cholesterol diet Continue Atorvastatin 10 mg QD for now - patient would like to continue on her current dose and does not want to have it raised further at this time Will recheck her labs and fasting lipids in 6 months for follow-up (2) Post-surgical hypothyroidism: Code(s): E89.0 - Postprocedural hypothyroidism Plan: Patient's serum TSH level has improved slightly from previous but is still elevated on her recent labs; her free T4 remains low and is mostly unchanged Her Levothyroxine dose was increased to 125 mcg QD at her last visit; will now increase it to 137 mcg QD Patient used to see Dr. Keen for endocrinology follow up but has not been back to see him in over a year now - was reportedly told that her PCP can just continue to manage her thyroid and to call them again only when needed Will have her recheck her TFTs and other labs in 6 months for follow up (3) Impaired fasting glucose: Code(s): R73.01 - Impaired fasting glucose Plan: HgbA1c was normal at 5.8% when checked last year - will continue to monitor this regularly Reinforced low calorie diet /exercise as tolerated (4) GERD without esophagitis: Code(s): K21.9 - Gastro-esophageal reflux disease without esophagitis Plan: Dietary restrictions reinforced (5) Vitamin D deficiency: Code(s): E55.9 - Vitamin D deficiency, unspecified Plan: Will restart her on Vitamin D3 2000 units QD - advised that her Vitamin D level is still low on her recent labs (6) Osteoarthritis of left shoulder: Code(s): M19.012 - Primary osteoarthritis, left shoulder Qualifiers: Osteoarthritis type: unspecified Qualified Code(s): M19.012 - Primary osteoarthritis, left shoulder Plan: X-rays of the left shoulder done last year revealed (+) mild OA over the left AC joint Recommend physical therapy if her shoulder continues to bother her - patient will call for referral when needed (7) Restless leg syndrome: Code(s): G25.81 - Restless legs syndrome Plan: Continue Pramipexole 1.5 mg Q HS (8) Intellectual disability: Comment: Patient is intellectually handicapped/challenged - 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 Family states that she never did get to complete school (only finished 3rd grade) and is on permanent disability as a result of this Code(s): F79 - Unspecified intellectual disabilities Plan: Patient's sister is her HCP and helps her make decisions regarding her health and medical issues (9) Depression: Code(s): F32.9 - Major depressive disorder, single episode, unspecified Qualifiers: Active/Remission status: currently active Depression Type: major depressive disorder Major depression episode severity: unspecified Major depression recurrence: recurrent Qualified Code(s): F33.9 - Major depressive disorder, recurrent, unspecified Plan: Was on Citalopram 10 mg QD in the past but patient came off her Rx on her own sometime last year and reportedly has not had any increase in her symptoms since States that she will call for Rx if her depression starts to flare up again (10) Overweight (BMI 25.0-29.9): Code(s): E66.3 - Overweight Plan: Reinforced diet/exercise as tolerated/lose weight Plan Follow up in 6 months Orders: Orders Comprehensive [place]. Panel Fast 6 Months E78.00 - Pure hypercholesterolemia, uns pecified Free T4 (Free Thyroxine) 6 Months E03.9 - Hypothyroidism, unspecified UA CC w/rflx Micro + Cult 6 Months R30.0 - Dysuria Vitamin D 25-OH Total 6 Months E55.9 - Vitamin D deficiency, unspecified Vitamin B12 and Folate 6 Months E53.8 - Deficiency of other specified B group vitamins Hemoglobin A1c 6 Months R73.01 - Impaired fasting glucose Complete Blood Count Auto Diff 6 Months D64.9 - Anemia, unspecified Lipid Panel 6 Months E78.00 - Pure hypercholesterolemia, unspecified Thyroid Stimulating Hormone 6 Months E03.9 - Hypothyroidism, unspecified Medications: New multivitamin (Multiple Vitamins tablet) 1 tab PO DAILY 90 tabs 3RF 90 days Changed From levothyroxine To be taken on an empty stomach 1st thing in the morning, with a glass of water; do not eat or drink anything else for the next 30 minutes 125 mcg PO DAILY 90 days 90 tabs 3RF E89.0 - Postprocedural hypothyroidism To levothyroxine To be taken on an empty stomach 1st thing in the morning, with a glass of water; do not eat or drink anything else for the next 30 minutes 137 mcg PO DAILY 90 tabs 3RF 90 days E89.0 - Postprocedural hypothyroidism Refilled cholecalciferol (vitamin D3) 2,000 units PO DAILY 90 caps 3RF 90 days E55.9 - Vitamin D deficiency, unspecified Coding Level of Care Code Est Pt Level 4 (33117) Diagnoses Pure hypercholesterolemia E78.00 Post-surgical hypothyroidism E89.0 Impaired fasting glucose R73.01 GERD without esophagitis K21.9 Vitamin D deficiency E55.9 Osteoarthritis of left shoulder, unspecified osteoarthritis type M19.012 Osteoarthritis type: unspecified Restless leg syndrome G25.81 Intellectual disability F79 Episode of recurrent major depressive disorder, unspecified depression episode severity F33.9 Active/Remission status: currently active Depression Type: major depressive disorder Major depression episode severity: unspecified Major depression recurrence: recurrent Overweight (BMI 25.0-29.9) E66.3
[2023-08-05 13:48] VITALS: BP 110/64; PULSE 90; O2SAT 98; BMI 26.9
== END 2023-08-05 14:23 | disposition home or self-care (01) ==
PROVIDERS: PCP Internal Medicine; Visit Provider Internal Medicine
DX: E78.00 Pure hypercholesterolemia, unspecified (principal); F33.9 Major depressive disorder, recurrent, unspecified; E89.0 Postprocedural hypothyroidism; R73.01 Impaired fasting glucose; K21.9 Gastro-esophageal reflux disease without esophagitis; E55.9 Vitamin D deficiency, unspecified; M19.012 Primary osteoarthritis, left shoulder; G25.81 Restless legs syndrome; F79 Unspecified intellectual disabilities; E66.3 Overweight
CPT/HCPCS: 99214

== ENCOUNTER 2024-03-08 14:38 | Outpatient (REF) | payer OTHER, SELFPAY ==
--- NOTE | ~2024-03-08 | XR_ITS ---
EXAMINATION: XR LUMBAR SPINE, SACRUM AND COCCYX CLINICAL INFORMATION: Low back pain COMPARISON: None available. TECHNIQUE: 5 views of the lumbosacral spine and 3 views of the sacrum and coccyx were obtained. FINDINGS: There is a mild biconvex scoliosis in the lumbar spine. Degenerative changes are seen with disc space narrowing at all levels most marked at L4-L5 and L5-S1. No fractures or bony destructive lesions are seen. Degenerative changes are present at the L4-L5 facet joints. No subluxation. A large amount of stool obscures detail in the sacrum and coccyx. No fractures or bony destructive lesions are seen. XR/XR lumbar spine 4V min IMPRESSION: Degenerative changes in the lumbar spine as described above. No acute finding. Electronically signed by: Tio Dietz MD 03/08/2024 05:17 PM KAROLINE
--- NOTE | ~2024-03-08 | XR_ITS ---
EXAMINATION: XR LUMBAR SPINE, SACRUM AND COCCYX CLINICAL INFORMATION: Low back pain COMPARISON: None available. TECHNIQUE: 5 views of the lumbosacral spine and 3 views of the sacrum and coccyx were obtained. FINDINGS: There is a mild biconvex scoliosis in the lumbar spine. Degenerative changes are seen with disc space narrowing at all levels most marked at L4-L5 and L5-S1. No fractures or bony destructive lesions are seen. Degenerative changes are present at the L4-L5 facet joints. No subluxation. A large amount of stool obscures detail in the sacrum and coccyx. No fractures or bony destructive lesions are seen. XR/XR sacrum coccyx min 2V IMPRESSION: Degenerative changes in the lumbar spine as described above. No acute finding. Electronically signed by: Tio Dietz MD 03/08/2024 05:17 PM KAROLINE GRANT
== END 2024-03-08 14:39 | disposition home or self-care (01) ==
LOC: HO.HMGCX 14:38
PROVIDERS: PCP Internal Medicine; Visit Provider Physician Assistant
DX: M54.50 Low back pain, unspecified (principal)
CPT/HCPCS: 72110; 72220; 99212

== ENCOUNTER 2024-03-08 14:38 | Outpatient (AMB) | payer OTHER, SELFPAY ==
[2024-03-08 14:49] VITALS: BP 126/80; PULSE 90; O2SAT 98
--- NOTE | 2024-03-08 14:49 | MHC.OFFWIV ---
Intake Vital Signs 03/08/24 14:49 Height 5 ft 4 in BP 126/80 Blood Pressure Location Rt brachial Position Sitting Pulse 90 Pulse Source Pulse Oximeter Pulse Oximetry (%) 98 Oxygen Delivery Method Room Air Intake Visit Reasons: EP LT hip & leg pain Intake Note: pt is here for left hip pain and leg pain Patient Tobacco Use Status: Never used Tobacco Allergies No Known Allergies Allergy (Verified 03/08/24 14:50) Do you need a note to return to daycare/school/sports/work: No HPI HPI Comments History of Present Illness Details Patient is a 58-year-old female who is here with her sister, who is speaking for her, complaining of low back pain for 3 days. They deny any injury to the patient's low back. Her sister tells me it is just extremely painful, they said the pain is in her left buttocks and in her low back. She denies any loss of control of her bladder or bowels. She tells me she tried taking Tylenol last night which did not really seem to help much. [facility] Medical History Intellectual disability Osteoarthritis of left shoulder Overweight (BMI 25.0-29.9) Depression Restless leg syndrome GERD without esophagitis Impaired fasting glucose Pure hypercholesterolemia Post-surgical hypothyroidism Vitamin D deficiency Surgical History Hx of thyroidectomy No pertinent past surgical history Family History Father Diabetes Mother Diabetes Hypertension Social History Housing: Apartment Alcohol intake: never Patient Tobacco Use Status: Never used Tobacco e-Cigarette/Vaping Use: Never Used Second Hand Smoke Exposure: No service: No Current occupational status: disabled Cognitive needs: No Hearing needs: No Vision needs: No Review of Systems Const All systems reviewed & are unremarkable except as noted in HPI and below Physical Exam Vital Signs: Last Vital Signs Pulse 90 03/08/24 14:49 BP 126/80 03/08/24 14:49 Pulse Ox 98 03/08/24 14:49 Oxygen Delivery Method Room Air 03/08/24 14:49 Const Other: pt is teary with exam General: cooperative and healthy appearing Orientation/consciousness: patient oriented x3 HEENT Head: Yes normal to inspection and Yes normocephalic General nose exam: Normal external nose present Face and sinus: Yes normal facial exam Eyes General: appearance normal, both eyes and all related structures Resp Effort & Inspection: normal respiratory effort and able to speak in complete sentences Back/Spine/Pelvis Cervical Spine: normal cervical lordosis, cervical ROM normal and No Cervical spine tenderness Thoracic/Lumbar Spine: thoracic and lumbar spine normal to inspection, No thoracic spinal tenderness and lumbar spinal tenderness at L5 Pelvis: buttock tenderness on the left Sacrum: tenderness midline Neuro General: patient oriented x3 Extrem Other: Straight leg raise test negative on right; Straight leg raise test negative on left; Reflexes normal ankle and knee bilaterally; motor strength normal bilaterally Assessment & Plan Assessment & Plan (1) Low back pain: Code(s): M54.50 - Low back pain, unspecified Qualifiers: Chronicity: acute Back pain laterality: left Sciatica presence: without sciatica Qualified Code(s): M54.50 - Low back pain, unspecified Plan: Patient is very tender in her sacral area, will get xrays, although she denies any trauma to the area so very unlikely it will be fractured. Sent meloxicam as she did have some tenderness in the left buttocks. If pain continues, and x-rays are negative, she should follow up with her PCP for possible physical therapy or further imaging with spine doctor. Did give her sister instructions and if she loses control of her bladder or bowels, she should go to the emergency department. Plan see above Orders: Orders XR sacrum coccyx min 2V Today M54.50 - Low back pain, unspecified XR lumbar spine 4V min Today M54.50 - Low back pain, unspecified Medications: New meloxicam 15 mg PO DAILY 10 tabs 0RF Coding Level of Care Code Est Pt Level 4 (84990) Diagnoses Acute left-sided low back pain without sciatica M54.50 Chronicity: acute Back pain laterality: left Sciatica presence: without sciatica
== END 2024-03-08 15:27 | disposition home or self-care (01) ==
PROVIDERS: PCP Internal Medicine; Visit Provider Physician Assistant
DX: M54.50 Low back pain, unspecified (principal)

== ENCOUNTER 2024-04-26 09:07 | Outpatient (REF) | payer OTHER, SELFPAY ==
[2024-04-26 09:46] LABS: MANUAL DIFF FLAG NO
[2024-04-26 10:31] LABS: Basophils Absolute Auto 0.1 X10*3/uL (0.0-0.2); Eosinophils Percent Auto 0.4 % (0-4); Hematocrit 39.5 % (37.0-47.0); Hemoglobin 13.3 g/dl (12.0-16.0); Imm Gran Abs Auto 0.02 X10*3/uL (0.00-0.03); Imm Gran Pct Auto 0.4 % (0.0-0.4); Lymphocytes Absolute Auto 1.4 X10*3/uL (1.2-4.9); Mean Corpuscular HGB Conc 33.7 g/dl (31.0-35.0); Mean Corpuscular Hemoglobin 32.4 pg (27.0-33.0); Mean Corpuscular Volume 96.3 fL (80.0-98.0); Mean Platelet Volume 10.2 fL (9.4-12.3); Monocytes Absolute Auto 0.3 X10*3/uL (0.1-1.2); Monocytes Percent Auto 6.7 % (2-11); Neutrophils Absolute Auto 3.1 x10*3/uL (2.0-8.3); Neutrophils Percent Auto 62.5 % (45-73); Platelet Count 287 X10*3/uL (160-400); Red Cell Distribution Width 11.9 % (11.0-16.0)
[2024-04-26 10:46] LABS: Estimated Average Glucose 120 mg/dL; Hemoglobin A1C 131.2777 umol/L; Hemoglobin A1c % 5.8 % (<6.0); Total Hemoglobin (HGBA1C) 3322.1497 umol/L
[2024-04-26 10:59] LABS: Alanine Aminotransferase 23 U/L (0-31); Albumin Level 4.2 g/dL (3.5-5.0); Alkaline Phosphatase 98 U/L (39-117); Anion Gap 11 (12-20); Aspartate Amino Transferase 26 U/L (5-31); Bilirubin Total 0.5 mg/dL (0.0-1.0); Blood Urea Nitrogen 29 mg/dL (9-16); Calcium 9.1 mg/dL (8.4-10.2); Carbon Dioxide 26 mmol/L (22-29); Chloride 108 mmol/L (96-108); Cholesterol 271 mg/dL (<200); Estimated Glomerular Filt Rate > 60; Glucose Fasting 104 mg/dL (60-99); HDL Cholesterol 87 mg/dL (>40); LDL Cholesterol Calculated 163 mg/dL (<100); Sodium 141 mmol/L (135-145); Total Protein 7.6 g/dL (6.5-8.0); Triglycerides 108 mg/dL (<150)
[2024-04-26 11:13] LABS: Appearance Urine Clear; Color Urine Yellow; Glucose Urine UA Negative (Negative); Leukocyte Esterase Urine Negative (Negative); Nitrite Urine Negative (Negative); PH 6.5 (5.0-9.0); Specific Gravity - Urine 1.025 (1.005-1.025); Urine Blood Negative (Negative); Urine Ketones Negative (Negative); Urine Protein Negative (Neg-Trace)
[2024-04-26 11:18] LABS: Free T4 (Free Thyroxine) 1.09 ng/dL (0.71-1.85); Thyroid Stimulating Hormone 6.01 uIU/mL (0.32-4.0); Vitamin D 25-OH Total 29.4 ng/mL (>30)
[2024-04-26 11:22] LABS: Folate 10.7 ng/mL (> or = 4.0); Vitamin B12 264 pg/mL (200-900)
== END 2024-04-26 09:08 | disposition home or self-care (01) ==
LOC: HO.LAB 09:07
PROVIDERS: PCP Internal Medicine; Visit Provider Internal Medicine
DX: D64.9 Anemia, unspecified (principal); E78.00 Pure hypercholesterolemia, unspecified; E03.9 Hypothyroidism, unspecified; R73.01 Impaired fasting glucose; R30.0 Dysuria; E55.9 Vitamin D deficiency, unspecified; E53.8 Deficiency of other specified B group vitamins
CPT/HCPCS: 36415; 80053; 80061; 81003; 82306; 82607; 82746; 83036; 84439; 84443; 85025

== ENCOUNTER 2024-06-18 15:17 | Outpatient (AMB) | payer OTHER, SELFPAY ==
--- OUTSIDE RECORDS SUMMARY | 2024-06-18 15:19 | XMS_ITS | Patient Health Record ---
Author Organization [facility] rochelle Adams Address [address] [facility] [place] [address] Care Team Providers Care Blanket Maker Name Role Phone Sebastian MACHADO, Juvencio Primary Care Provider Matt griffin Sulema Pérez Unavailable [phone] Allergies No Known Allergies Reason For Referral No Information Medications Medication SIG (Take, Route, Frequency, Duration) Notes Start Date End Date Status Atorvastatin Calcium 10 MG 1 tablet Oral ly Once a day for 30 day(s) Not-Taking Ciclopirox Olamine 0.77 % 1 application to affected area Externally to feet Twice a day for 30 days Not-Taking Atorvastatin Calcium Not-Taking Vitamin D3 50 MCG (1999 UT) 1 capsule Orally Once a day for 30 day(s) Active Levothyroxine Sodium 112 MCG 1 tablet in the morning on an empty stomach Orally Once a day for 30 day(s) Active Pramipexole Dihydrochloride 1.5 MG 1 tablet Orally Once a day for 30 day(s) Active Social History Tobacco Use: Social History Observation Description Date Details (start date - stop date) Never Smoker NA - NA Tobacco Use/Smoking Question Answer Notes Are you a: nonsmoker Additional Findings: Tobacco Non-User Current no n-smoker Alcohol Screen Question Answer Notes Did you have a drink containing alcohol in the p ast year? No Points 0 Interpretation Negative Tobacco use other than smoking: Question Answer Notes Are you an other tobacco user? 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) Active confirmed Problem 314391305 Skin ulcer of right heel, limited to breakdown of skin (L97.411) Active confirmed Vital Signs Blood pressure diastolic 80 mm Hg 05/27/2024 Height 5ft4in in 05/27/2024 Blood pressure systolic 134 mm Hg 05/27/2024 Weight 172 lbs 05/27/2024 BMI 29.52 kg/m2 05/27/2024 Procedures Procedure Date Ordered Date Performed Result Body Sit e 41743-SAWGOBV NAIL, -10/13/2023 N/A 53432-Xpog Destruction, -10/13/2023 N/A 15557-NLJXAVZ NAIL, -02/09/2024 N/A 17352-Bfgu Destruction, -02/09/2024 N/A 81249-ZQFZOEG NAIL, -05/27/2024 N/A 31080-Pbea Destruction, -05/27/2024 N/A Encounters Encounter Location Date Provider Diagnosis [facility] [address] 10/13/2023 Sulema Black Plantar fascial fibromatosis M72.2 ; Other viral warts B07.8 ; Pain in left foot M79.672 ; Pain in right foot M79.671 ; Other myositis, left ankle and foot M60.872 ; Other myositis of right foot M60.871 ; Tinea unguium B35.1 ; Pain in right toe(s) M79.674 and Pain in left toe(s) M79.675 [facility] [address] [address] 02/09/2024 Sulema Black Plantar fascial fibromatosis M72.2 ; Other viral warts B07.8 ; Pain in left foot M79.672 ; Pain in right foot M79.671 ; Other myositis, left ankle and foot M60.872 ; Other myositis of right foot M60.871 ; Tinea unguium B35.1 ; Pain in right toe(s) M79.674 and Pain in left toe(s) M79.675 [facility] [place] [address] [place] [address] 05/27/2024 Sulema Black Plantar fascial fibromatosis M72.2 ; Other viral warts B07.8 ; Pain in left foot M79.672 ; Pain in right foot M79.671 ; Other myositis, left ankle and foot M60.872 ; Other myositis of right foot M60.871 ; Tinea unguium B35.1 ; Pain in right toe(s) M79.674 and Pain in left toe(s) M79.675 Assessments Encounter Date Diagnosis (ICD Code) Assessment Notes Treatment Notes Treatment Clinical Notes Section Notes 10/13/2023 Plantar fascial fibromatosis (ICD-10 - M72.2) 02/09/2024 Plantar fascial fibromatosis (ICD-10 - M72.2) 05/27/2024 Plantar fascial fibromatosis (ICD-10 - M72.2) 05/27/2024 Other viral warts (ICD-10 - B07.8) 05/27/2024 Pain in left foot (ICD-10 - M79.672) 02/09/2024 Other viral warts (ICD-10 - B07.8) 02/09/2024 Pain in left foot (ICD-10 - M79.672) 10/13/2023 Other viral warts (ICD-10 - B07.8) 10/13/2023 Pain in left foot (ICD-10 - M79.672) 02/09/2024 Pain in right foot (ICD-10 - M79.671) 05/27/2024 Pain in right foot (ICD-10 - M79.671) 05/27/2024 Other myositis, left ankle and foot (ICD-10 - M60.872) 02/09/2024 Other myositis, left ankle and foot (ICD-10 - M60.872) 10/13/2023 Pain in right foot (ICD-10 - M79.671) 10/13/2023 Other myositis, left ankle and foot (ICD-10 - M60.872) 02/09/2024 Other myositis of right foot (ICD-10 - M60.871) 05/27/2024 Other myositis of right foot (ICD-10 - M60.871) 05/27/2024 Tinea unguium (ICD-10 - B35.1) 02/09/2024 Tinea unguium (ICD-10 - B35.1) 10/13/2023 Other myositis of right foot (ICD-10 - M60.871) 10/13/2023 Tinea unguium (ICD-10 - B35.1) 02/09/2024 Pain in right toe(s) (ICD-10 - M79.674) 05/27/2024 Pain in right toe(s) (ICD-10 - M79.674) 05/27/2024 Pain in left toe(s) (ICD-10 - M79.675) 02/09/2024 Pain in left toe(s) (ICD-10 - M79.675) 10/13/2023 Pain in right toe(s) (ICD-10 - M79.674) 10/13/2023 Pain in left toe(s) (ICD-10 - M79.675) Plan Of Treatment Pending Test Test Name Order Date 08338-WKDLCGO NAIL, -10/13/2023 18736-CZWSZVB NAIL, -02/09/2024 20811-NMLPNYF NAIL, -5 05/27/2024 79717-Nqkt Destruction, -14 05/27/2024 76426-Hyhd Destruction, -14 02/09/2024 43700-Mmfd Destruction, -14 10/13/2023 94389-Ldmu Destruction, -14 09/17/2021 24282-Divl Destruction, -14 12/10/2021 69836-Ohfu Destruction, -14 03/04/2022 93778-Urfl Destruction, -14 07/11/2022 96317-Arxc Destruction, -10/14/2022 87897-Ywdf Destruction, -02/13/2023 78456-Dzfh Destruction, -06/16/2023 42409- Debride <25 sq cm 07/11/2022 91058 I&D ABSCESS- SIMPLE,SINGLE 022 Next Appt Details Provider Name:Sulema Pérez , 08/30/2024 02:45:00 PM, [address] [place], [address], Insurance Providers Payer Name Payer Address Payer Phone Subscriber Number Group Number Insured Name Patient Relationship to Insured Coverage Start Date Coverage End Date [facility] [employer] Claims [address] [place] [id number] Lara Felipe Self - patient is the insured Medical (General) History Medical History History ICD Code Depression Reflux ( GERD) Impaired Fasting Glucose osteoarthritis Hypothyroidism Hypercholesterolemia Restless leg syndrome Vitamin D deficiency Surgical History Surgery Date(Month/Year) thyroidectomy, complete
--- OUTSIDE RECORDS SUMMARY | 2024-06-18 15:19 | XMS_ITS ---
Author Organization [facility] Address [address] [facility] [place] [address] Care Team Providers Care Bill Sorter Name Role Phone Juvencio Cortes MD Primary Care Provider Unava ilable Black, Sulema Unavailable [phone] Allergies No Known Allergies REASON FOR VISIT Wart(s), Heel pain, Painful nail(s) aggrevated by shoes causing difficulty standing/walking Medications Medication SIG (Take, Route, Frequency, Duration) [...] Status W/U Status Risk Notes Problem Plantar fascial fibromatosis (26274193) Plantar fascial fibromatosis (M72.2) Active confirmed Vital Signs Height 5ft 4in in 02/09/2024 Weight 166 lbs 02/09/2024 BMI 28.49 kg/m2 02/09/2024 Procedures Procedure Date Ordered Date Performed Result Body Sit e 01301-GVMHFTG NAIL, 1-5 02/09/2024 N/A 58414-Bjyc Destruction, 1-14 02/09/2024 N/A Encounters Encounter Location Date Provider Diagnosis [facility] [address] [address] 02/09/2024 Sulema Black Plantar fascial fibromatosis M72.2 [...] Treatment Notes Treatment Clinical Notes Section Notes 02/09/2024 Plantar fascial fibromatosis (ICD-10 - M72.2) 02/09/2024 Other viral warts (ICD-10 - B07.8) 02/09/2024 Pain in left foot (ICD-10 - M79.672) 02/09/2024 Pain in right foot (ICD-10 - M79.671) 02/09/2024 Other myositis, left ankle and foot (ICD-10 - M60.872) 02/09/2024 Other myositis of right foot (ICD-10 - M60.871) 02/09/2024 Tinea unguium (ICD-10 - B35.1) 02/09/2024 Pain in right toe(s) (ICD-10 - M79.674) 02/09/2024 Pain in left toe(s) (ICD-10 - M79.675) Plan Of Treatment Pending Test Test Name Order Date 49849-URKTZCX NAIL, 1-5 02/09/2024 74666-Rvyt Destruction, 1-02/09/2024 Next Appt Details Follow Up: prn, Reason: Provider Name:Sulema Pérez , 08/30/2024 02:45:00 PM, [address] [facility], [place], [address], Procedure Notes * Category Sub-Category Detail Notes Wart Treatment Procedure Verrucae were de brided to pin-point bleeding margins with sterile 15 surgical blade (51082) , silver nitrate chemocautery applied , STILL, recomm.cont. use Wartstick 40 percent Salicylic acid application under occlusion as directed b/l Debride Nails 1-5 Procedure: Performance of this nail treatment by a nonprofessional would put this patients foot and overall health at risk. Therefore, nail debridement was performed extensively to reduce/remove overall nail length, girth, thickness, subungual debris, and necrotic tissue, by manual and/or electrical means through the use of a nail nipper and/or dremel-type turbinated bone grinder, to a more viable healthy nail plate or bed tissue 1-5. Silver nitrate used for any petechial bleeding as necessary. Definitive antifungal treatment options have been reviewed and discussed with the patient. The patient chooses, no pharmaceutical tx - [address] Progress Notes * Adriana CULLENsDOB:[birth year] (58 yo F)Acc No.[id number]:02/09/2024 Progress Note Patient:Lara Olivares Provider:?Sulema Pérez DPM :1965???Age:58 Y???Sex:Female D ate:02/09/2024 Address:[address] [place], [place] [id number] Pcp:Juvencio Cortes MD Subjective: * Chief Complaints: * ???Wart(s)Heel painPainful n ail(s) aggrevated by shoes causing difficulty standing/walking * HPI: ???Skin problems:?Pt States PCP Visit: ?DATE?09/25/2023 ?Location:?B/L .?Heel pain:?Nature:?tenderness, sharp pain, stiffness.?Location:?, Arch , B/L.?Duration:?more than six months.?Course:?, worse.?Aggravated:?shoe gear- flat flip flops with no arch support.?Treatments:?stretching , , ice , pt went back to wearing non supportive shoes.?Painful Nails:?Pt States Last PCP Visit:?Date:?09/25/2023 * ROS:?General/Constitutional:?Nausea?denies.?Vomiting?denies.?Hunger Thirst?denies.?Loss appetite?denies.?Chills?denies.?Fatigue?denies.?Fever?denies.?Night Sweats?denies.?Unexplained weight loss?denies.?Unexplained weight gain?denies.?HEENTM:?Dentures?denies.?Dizziness?denies.?Glasses/contacts?denies.?Retinopathy?de nies.?Blurred/double vision?denies.?TMJ?denies.?Discharge/drainage?denies.?Implants?denies.?Sore throat?denies.?Dental implants?denies.?Hard of hearing ?denies.?Difficulty chewing/swallowing/speaking?denies.?Nose bleeds?denies.?Sore mouth?denies.?Respiratory:?On Oxygen?denies.?Pneumonia/pleurisy?denies.?Bronchitis?denies.?Emphysema?denies.?C oughing?denies.?Cough blood?denies.?Shortness of breath?denies.?Wheezing?denies.?Cardiovascular:?Pacemaker?denies.?MVP?denies.?WPW?denies.?CHF?denies.?Heart attack?denies.?Septal defect?denies.?Rapid beat?denies.?Chest pain ?denies.?Atrial Fib.?denies.?Murmur/Palpitations?denies.?Gastrointestinal:?Hemorrhoids?denies.?Stomach/Abdominal pain?denies.?Dark blood stool?denies.?Irritable bowel ?denies.?Constipation?denies.?Diarrhea?denies.?Hematology:?Swelling?denies.?Clots?denies.?Varicose Veins?denies.?Bruising?denies.?Bleeding problem?denies.?Genitourinary:?Blood urine?denies.?Frequent/Painfu/urination/bladder control?denies.?Kidney stones?denies.?Infection (UTI)?denies.?Nephropathy?denies.?sex trans dis (STD)?denies.?Prostate?denies.?Musculoskeletal:?Hammertoes?denies.?Bunions?denies.?Back Pain?denies.?Muscle Cramps/ Resting?denies.?Muscle cramps / walking?denies.?Generalized aches and pains?admits.?Weakness?denies.?Integ.:?Lane?denies.?Scars?denies.?Corns/calluses?denies.?Ingrown nails?denies.?Painful nails?denies.?Open Sores?denies.?Rashes?denies.?Neurologic:?Difficulty sleeping?denies.?Brain disorder?denies.?Numbness?denies.?Balance trouble?denies.?Confusion?denies.?Fainting/blackouts?denies.?Tingling?denies.?Tr emors?denies.? * Medical History:? * Surgical History:?thyroidect dolores, complete * Hospitalization/Major Diagno stic Procedure:?Denies Past Hospitalization * Family History:?Mother: mary e, diagnosed with Diabetic - NIDDM, Unspecified essential hypertension.?Father: , diagnosed with Diabetic - NIDDM.? * Social History:?Tobacco Use:?Tobacco Use/Smoking?Are you a:?nonsmoker ?Additional Findings: Tobacco Non-User?Current non-smoker ?Tobacco use other than smoking?Are you an other tobacco user??No ???Drugs/Alcohol:?Drugs?Have you used drugs other than those for medical reasons in the past 12 months??No ?Alcohol Screen?Did you have a drink containing alcohol in the past year??No ?Points?0 ?Interpretation?Negative ???Miscellaneous:?Caffeine: yes, frequency:, 1-2 cups per day. ?no Children. ?no Exercise. ?Marital status: single. ?Occupation: Unemployed. * Medications:?TakingPramipexo le Dihydrochloride 1.5 MG Tablet 1 tablet Orally Once a dayLevothyroxine Sodium 112 MCG Tablet 1 tablet in the morning on an empty stomach Orally Once a dayVitamin D3 50 MCG (2000 UT) Capsule 1 capsule Orally Once a dayTaking Pramipexole Dihydrochloride 1.5 MG Tablet 1 tablet Orally Once a dayTaking Levothyroxine Sodium 112 MCG Tablet 1 tablet in the morning on an empty stomach Orally Once a dayTaking Vitamin D3 50 MCG (2000 UT) Capsule 1 capsule Orally Once a dayNot-Taking/PRNAtorvastatin Calcium Ciclopirox Olamine 0.77 % Cream 1 application to affected area Externally to feet Twice a dayAtorvastatin Calcium 10 MG Tablet 1 tablet Orally Once a dayMedication List reviewed and reconciled with the patientNot-Taking/PRN Atorvastatin Calcium Not-Taking/PRN Ciclopirox Olamine 0.77 % Cream 1 application to affected area Externally to feet Twice a dayNot- Taking/PRN Atorvastatin Calcium 10 MG Tablet 1 tablet Orally Once a dayMedication List reviewed and reconciled with the patient * Allergies:?N.K.D.A.yes[Aller gies Verified] Objective: * Vitals:?Ht: 5ft 4in, Wt:166, BMI:28.49, Shoe size: 8-8.5, Ht-cm: 162.56 cm, Wt- k.3 kg. * Examination: ???General Examination: ?GENERAL APPEARANCE:?Pt accompanied by , Female , who serves as , Cable Testers Helper/Structural Manager , additional Historian , and/who is physically present in exam room at time of visit.?Dermatologic: ?SKIN FINDINGS:?Skin exam reveals normal color, texture, elasticity, and turgor. There are no masses, nor excrescences. The interspaces are clear, B/L.?VERRUCA:?Reveals Multiple ( 5 ), multi-loculated , mosaic, round, raised, flat-topped, petechial bleeding papulae(s), with cauliflower appearance and interrruption of skin lines, with pain to lateral compression, and size estimated at 1-2 mm diameter B/L.?Heel Pain: ?INSPECTION REVEALS:?Pain on Palpation to Plantar Fascia med. and central bands, intrinsic musc., infracalcaneal bursa, and med calc tubercle LEFT foot No pain: posterior/superior heel, achilles bursa/tendon, sinus tarsi, peroneals, or with lateral heel compression; no limited STJ ROM, calor, or eccymosis b/l?.?Nails: ?NAILS are:?Elongated, overgrown, dystrophic, lytic, greater than 3mm thick, discolored and friable with crumbly malodorous subungual debris, with pain on palpation , TA , T5.?Orthopedic: ?MUSCLE STRENGTH:?5/5 all groups in a symmetrical fashion, B/L.?GAIT ABNORMALITY:?Pronated , abducted angle and base of gate , B/L , antalgic.?FOOTWEAR:?shoe gear properties exacerbate patients foot/toe deformity- flat converse eakers.? Assessment: * Assessment: 1.?Plantar fascial fibromato sis - M72.2, Worse?2.?Other viral warts - B07.8 (Primary)?3.?Pain in left foot - M79.672?4.?Pain in right foot - M79.671?5.?Other myositis, left ankle and foot - M60.872?6.?Other myositis of right foot - M60.871?7.?Tinea unguium - B35.1?8.?Pain in right toe(s) - M79.674?9.?Pain in left toe(s) - M79.675? Plan: * Treatment: 2.?Tinea unguium?Procedure: 48366-GCACCVA NAIL, 1-5 * Procedures:?Debride Nails 1-5:?Procedure:?Performance of this nail treatment by a nonprofessional would put this patients foot and overall health at risk. Therefore, nail debridement was performed extensively to reduce/remove overall nail length, girth, thickness, subungual debris, and necrotic tissue, by manual and/or electrical means through the use of a nail nipper and/or dremel-type turbinated bone grinder, to a more viable healthy nail plate or bed tissue 1-5. Silver nitrate used for any petechial bleeding as necessary. Definitive antifungal treatment options have been reviewed and discussed with the patient. The patient chooses, no pharmaceutical tx - [address]125.?Wart Treatment:?Procedure?Verrucae were debrided to pin-point bleeding margins with sterile 15 surgical blade (99013) , silver nitrate chemocautery applied , STILL, recomm.cont. use Wartstick 40 percent Salicylic acid application under occlusion as directed b/l.? * Procedure Codes:?29987 DEJA DE NAIL, 1-5, Modifiers: XS 60613 Wart Destruction, -14, Modifiers: XS * Preventive Medicine:? ??Counseling:?Discussion:?-13: Office or other outpatient visit for the evaluation and management of an established patient, which required a medically appropriate history and/or examination and LOW level of DECISION MAKING for: 1 STABLE ACUTE UNCOMPLICATED PROBLEM, 2 OR MORE MINOR PROBLEMS, OR 1 STABLE CHRONIC PROBLEM, THAT POSE(S) A LOW RISK FOR MORBIDITY/MORTALITY. The visit on the day of the encounter encompassed interpreting the data and educating the patient as to the nature of their condition, treatment options available according to their individual PMH, meds, allergies, and overall health/living conditions, as well as any potential risks or complications that may occur from a failure to adhere to, and participate in, the recommended course of therapy. The discussion included a complete verbal, and/or written explanation of the examination results, any x-rays taken, the proposed diagnosis, and outline of the treatment plan. A schedule for future care needs was also explained. The patient verbalized an understanding of the instructions at this time and agreed to be an active participant in their treatment. If the patient should think of any questions or concerns after the visit, I have encouraged the patient to call the office.?Heel pain:?Discussed with the pt the need to be compliant with all aspets of home care.PREVENTIVE STRATEGIES were reviewed with the patient to avoid reoccurane . The patient is to pay close attention to footwear . We discussed and recommended practices and procedures regarding regular shoe and insert evaluations for wear. We reinforced the importance for the patient to adhere to wearing their orthopedic shoes and pressure accommodative innersoles whenever walking. We stressed the significant value for the patient to remain consistent concerning their medically prescribed exercise (seated weights, exercise bike, or swimming),.?Shoe Gear Counseling:?The patient and I reviewed the types of shoes they should be wearing. My recommendation included obtaining a well-fitted shoe with a good supportive, non-foldable nor twistable sole, plenty of toe/room for the forefoot, and proper arch support. Based on todays examination, I recommended the patient look for new shoes, by having their feet professionally measured. We discussed that generally the best time of the day for a shoe fitting is the afternoon. Different shoes types and brands to best match the patients occupation and vocation were discussed. Specific brand selection will be up to the patient, their individual foot condition/deformities, and fit. The patient and I reviewed the standard new shoe break in period by wearing them for a few hours a day while checking for redness or sores as wear time is increased. The patient verbally confirmed to understanding the information discussed.? * Follow Up:?prn * Images: * Sign off status: Completed true * Provider:?Sulema Pérez DPM Date:?2023 Generated for Ashwin arredondo/Carri/Kojo on:?06/18/2024 03:19 PM EST History and Physical Notes * HPI (History of Present Illness) Category Sub-Category Detail Notes Category Not es Heel pain Duration: more than six months Nature: tenderness, sharp pa in, stiffness Location: , Arch , B/L Aggravated: shoe gear- flat flip flops with no arch support Course: , worse Treatments: stretching , , ice , pt went back to wearing non supportive shoes Painful Nails Pt States Last PCP Visit: Date:: 09/25/2023 Skin problems Location: B/L Pt States PCP Visit: DATE: 09/25/2023 Examination Category Sub-Category Detail Notes Category Not es Heel Pain INSPECTION REVEALS: Pain on Palp ation to Plantar Fascia med. and central bands, intrinsic musc., infracalcaneal bursa, and med calc tubercle LEFT foot No pain: posterior/superior heel, achilles bursa/tendon, sinus tarsi, peroneals, or with lateral heel compression; no limited STJ ROM, calor, or eccymosis b/l Dermatologic SKIN FINDINGS: Skin exam reveal s normal color, texture, elasticity, and turgor. There are no masses, nor excrescences. The interspaces are clear, B/L ULCER: VERRUCA: Reveals Multiple ( 5 ), multi-loculated , mosaic, round, raised, flat- topped, petechial bleeding papulae(s), with cauliflower appearance and interrruption of skin lines, with pain to lateral compression, and size estimated at 1-2 mm diameter B/L Orthopedic GAIT ABNORMALITY: Pronated , abd ucted angle and base of gate , B/L , antalgic FOOTWEAR: shoe gear properties exacerbate patients foot/toe deformity- flat converse sneakers MUSCLE STRENGTH: 5/5 all groups in a symmetrical fashion, B/L General Examination GENERAL APPEARANCE: Pt accom panied by , Female , who serves as , Cable Testers Helper/Structural Manager , additional Historian , and/who is physically present in exam room at time of visit Nails NAILS are: Elongated, overg rown, dystrophic, lytic, greater than 3mm thick, discolored and friable with crumbly malodorous subungual debris, with pain on palpation , TA , T5
--- OUTSIDE RECORDS SUMMARY | 2024-06-18 15:19 | XMS_ITS ---
Author Organization [facility] Address [address] [facility] [place] [address] Care Team Providers Care Staff Respiratory Therapist Name Role Phone Juvencio Cortes MD Primary Care Provider Unava ilable Black, Sulema Unavailable [phone] Allergies No Known Allergies REASON FOR VISIT Wart(s), Heel pain, Painful nail(s) aggrevated by shoes causing difficulty standing/walking Medications Medication SIG (Take, Route, Frequency, Duration) Notes Start Date End Date Status Ciclopirox Olamine 0.77 % 1 application to affected area Externally to feet Twice a day for 30 days Not-Taking Atorvastatin Calcium Not-Taking Vitamin D3 50 MCG (2000 UT) 1 capsule Orally Once a day for 30 day(s) Active Levothyroxine Sodium 112 MCG 1 tablet in the morning on an empty stomach Orally Once a day for 30 day(s) Active Pramipexole Dihydrochloride 1.5 MG 1 tablet Orally Once a day for 30 day(s) Active Atorvastatin Calcium 10 MG 1 tablet Oral ly Once a day for 30 day(s) Not-Taking Social History Tobacco Use: Social History Observation Description Date Details (start date - stop date) Never Smoker NA - NA Tobacco Use/Smoking Question Answer Notes Are you a: nonsmoker Additional Findings: Tobacco Non-User Current no n-smoker Tobacco use other than smoking: Question Answer Notes Are you an other tobacco user? No Vital Signs Blood pressure systolic 134 mm Hg 05/27/19 25 Blood pressure diastolic 80 mm Hg 025 Height 5ft4in in 05/27/2024 Weight 172 lbs 05/27/2024 BMI 29.52 kg/m2 05/27/2024 Procedures Procedure Date Ordered Date Performed Result Body Sit e 41154-EUHEILE NAIL, -05/27/2024 N/A 45621-Kgcz Destruction, -05/27/2024 N/A Encounters Encounter Location Date Provider Diagnosis [facility] [address] [address] 05/27/2024 Sulema Beto Plantar fascial fibromatosis M72.2 ; Other viral [...] Treatment Notes Treatment Clinical Notes Section Notes 05/27/2024 Plantar fascial fibromatosis (ICD-10 - M72.2) 05/27/2024 Other viral warts (ICD-10 - B07.8) 05/27/2024 Pain in left foot (ICD-10 - M79.672) 05/27/2024 Pain in right foot (ICD-10 - M79.671) 05/27/2024 Other myositis, left ankle and foot (ICD-10 - M60.872) 05/27/2024 Other myositis of right foot (ICD-10 - M60.871) 05/27/2024 Tinea unguium (ICD-10 - B35.1) 05/27/2024 Pain in right toe(s) (ICD-10 - M79.674) 05/27/2024 Pain in left toe(s) (ICD-10 - M79.675) Plan Of Treatment Pending Test Test Name Order Date 19285-BAFHREB NAIL, -05/27/2024 09740-Upab Destruction, 05-1805/27/2024 Next Appt Details Follow Up: prn, Reason: Provider Name:Sulema Pérez , 08/30/2024 02:45:00 PM, [address] [place], [address], Procedure Notes * Category Sub-Category Detail Notes Wart Treatment Procedure Verrucae were de brided to pin-point bleeding margins with sterile 15 surgical blade (88431) , silver nitrate chemocautery applied ,AGAIN, , , recomm.cont. use Wartstick 40 percent Salicylic acid application under occlusion as directed b/l Debride Nails 1-5 Procedure: Due to the cli nical pathology outlined in the exam findings, performance of this nail treatment is medically necessary as its management by an unskilled/untrained nonprofessional would put this patients foot and overall health at risk. Therefore, debridement to affected nail(s), as described in exam ( TAT5 ), was performed exclusively by the physician of record to reduce/remove overall nail length, girth, thickness, subungual debris, and necrotic tissue, by manual and/or electrical means through the use of a nail nipper and/or dremel stylegrinder, to a more viable healthy nail plate or bed tissue 5 nails or fewer in number. Silver nitrate was used for any petechial bleeding as necessary. Definitive antifungal treatment options, both pharmaceutical and surgical, have been reviewed and discussed with the patient. The patient solely prefers the use of intermittent/as needed professional debridement services for their nail condition and understands that additional periodic treatments may be required as necessary to maintain effective symptomatic relief - 32863 Progress Notes * ELVERANUJAAlbert VILLARanniesDOB:11/[birth year] (58 yo F)Acc No.[id number]:05/27/2024 Progress Note Patient:?Lara CULLEN Provider:Philippe Pérez DPM :1965???Age:58 Y???Sex:Female D ate:05/27/2024 Address:[address] [place], [place] [id number] Pcp:Juvencio Cortes MD Subjective: * Chief Complaints: * ???Wart(s)Heel painPainful n ail(s) aggrevated by shoes causing difficulty standing/walking * HPI: ???Skin problems:?Pt States PCP Visit: ?DATE?09/25/2023 ?Location:?B/L .?Heel pain:?Nature:?tenderness, sharp pain, stiffness.?Location:?, Arch , B/L.?Duration:?more than six months.?Course:?, improved, at approximately 80 %.?Aggravated:?shoe gear- flat flip flops with no arch support.?Treatments:?stretching , , ice ,, change in shoes.?Painful Nails:?Pt States Last PCP Visit:?Date:?09/25/2023 * [...] Procedure:?Denies Past Hospitalization * Family History:?Mother: mary mcguire, diagnosed with Diabetic - NIDDM, Unspecified essential hypertension.?Father: , diagnosed with Diabetic - NIDDM.? * Social History:?Tobacco Use:?Tobacco Use/Smoking?Are you a:?nonsmoker ?Additional Findings: Tobacco Non-User?Current non-smoker ?Tobacco use other than smoking?Are you an other tobacco user??No ???Miscellaneous:?Caffeine: yes, frequency:, 1-2 cups per day. ?Children: no. ?Exercise: no. ?Marital status: single. ?Occupation: Unemployed. * Medications:?TakingPramipexo le Dihydrochloride 1.5 MG Tablet 1 tablet Orally Once a day Levothyroxine Sodium 112 MCG Tablet 1 tablet in the morning on an empty stomach Orally Once a day Vitamin D3 50 MCG (2000 UT) Capsule 1 capsule Orally Once a day Taking Pramipexole Dihydrochloride 1.5 MG Tablet 1 tablet Orally Once a day Taking Levothyroxine Sodium 112 MCG Tablet 1 tablet in the morning on an empty stomach Orally Once a day Taking Vitamin D3 50 MCG (2000 UT) Capsule 1 capsule Orally Once a day Not-Taking/PRNAtorvastatin Calcium Ciclopirox Olamine 0.77 % Cream 1 application to affected area Externally to feet Twice a day Atorvastatin Calcium 10 MG Tablet 1 tablet Orally Once a day Medication List reviewed and reconciled with the patientNot-Taking/PRN Atorvastatin Calcium Not-Taking/PRN Ciclopirox Olamine 0.77 % Cream 1 application to affected area Externally to feet Twice a day Not- Taking/PRN Atorvastatin Calcium 10 MG Tablet 1 tablet Orally Once a day Medication List reviewed and reconciled with the patient * Allergies:?N.K.D.A.yes[Aller gies Verified] Objective: * Vitals:?Ht: 5ft4in, Wt:172, BMI:29.52, Shoe size: 8-8.5, BP:134/80mm Hg, Ht-cm: 162.56 cm, Wt-k.02 kg. * Examination: ???General Examination: ?GENERAL APPEARANCE:?Pt accompanied by , Female , who serves as , Cartographic Technician/Agronomy Teacher , additional Historian , and/who is physically present in exam room at time of visit.?Dermatologic: ?SKIN FINDINGS:?Skin exam reveals normal color, texture, elasticity, and turgor. There are no masses, nor excrescences. The interspaces are clear, B/L.?VERRUCA:?Reveals Multiple (4), multi-loculated , mosaic, round, raised, flat-topped, petechial bleeding papulae(s), with cauliflower appearance and interrruption of skin lines, with pain to lateral compression, and size estimated at 2 mm diameter B/L.?Heel Pain: ?INSPECTION REVEALS:?Pain on Palpation to Plantar Fascia med. and central bands, intrinsic musc., infracalcaneal bursa, and med calc tubercle LEFT foot No pain: posterior/superior heel, achilles bursa/tendon, sinus tarsi, peroneals, or with lateral heel compression; no limited STJ ROM, calor, or eccymosis b/l , Approximately 80_ percent LESS.?Nails: ?NAILS are:?Elongated, overgrown, dystrophic, lytic, greater than 3mm thick, discolored and friable with crumbly malodorous subungual debris, with pain on palpation , TA , T5.?Orthopedic: ?MUSCLE STRENGTH:?5/5 all groups in a symmetrical fashion, B/L.?GAIT ABNORMALITY:?Pronated , abducted angle and base of gate , B/L , antalgic.?FOOTWEAR:?good condition, exhibit proper fit and accommodation for pedal deformities.?.? Assessment: * Assessment: 1.?Plantar fascial fibromato sis - M72.2???Specify :Response to treatment - Improvement???2.?Other viral warts - B07.8 (Primary)???3.?Pain in left foot - M79.672???4.?Pain in right foot - M79.671???5.?Other myositis, left ankle and foot - M60.872???6.?Other myositis of right foot - M60.871???7.?Tinea unguium - B35.1???8.?Pain in right toe(s) - M79.674???9.?Pain in left toe(s) - M79.675??? Plan: * Treatment: 2.?Tinea unguium?Procedure: 25415-GALBQRB NAIL, 1-5 * Procedures:?Debride Nails 1-5:?Procedure:?Due to the clinical pathology outlined in the exam findings, performance of this nail treatment is medically necessary as its management by an unskilled/untrained nonprofessional would put this patients foot and overall health at risk. Therefore, debridement to affected nail(s), as described in exam ( TAT5 ), was performed exclusively by the physician of record to reduce/remove overall nail length, girth, thickness, subungual debris, and necrotic tissue, by manual and/or electrical means through the use of a nail nipper and/or dremel stylegrinder, to a more viable healthy nail plate or bed tissue 5 nails or fewer in number. Silver nitrate was used for any petechial bleeding as necessary. Definitive antifungal treatment options, both pharmaceutical and surgical, have been reviewed and discussed with the patient. The patient solely prefers the use of intermittent/as needed professional debridement services for their nail condition and understands that additional periodic treatments may be required as necessary to maintain effective symptomatic relief - 30389.?Wart Treatment:?Procedure?Verrucae were debrided to pin-point bleeding margins with sterile 15 surgical blade (51069) , silver nitrate chemocautery applied ,AGAIN, , , recomm.cont. use Wartstick 40 percent Salicylic acid application under occlusion as directed b/l.? * Procedure Codes:?68780 DEBRI DE NAIL, 1-5, Modifiers: XS 59416 Wart Destruction, 1-14, Modifiers: XS * Preventive Medicine:? ??Counseling:?Discussion:?-12: Office or other outpatient visit for the evaluation and management of an established patient, which required a medically appropriate history and/or examination and STRAIGHTFORWARD level of MEDICAL DECISION MAKING, 1 SELF-LIMITED OR MINOR PROBLEM, MINIMAL- NO AMOUNT/COMPLEXITY OF DATA TO BE REVIEWED/ANALYZED, AND MINIMAL RISK OF COMPLICATION/MORBIDITY. The visit on the day of the [...] have encouraged the patient to call the office, Given recent successful results to treatment, The patient wishes to continue with the present treatment plan for their condition.? * Follow Up:?prn * Images: * Sign off status: Completed true * Provider:?Sulema Pérez DPM Date:?2024 Generated for Ashwin arredondo/Carri/Lupilloitting on:?06/18/2024 03:19 PM EST History and Physical Notes * HPI (History of Present Illness) Category Sub-Category Detail Notes Category Not es Heel pain Duration: more than six months Nature: tenderness, sharp pa in, stiffness Location: , Arch , B/L Aggravated: shoe gear- flat flip flops with no arch support Course: , improved, at appro ximately 80 % Treatments: stretching , , ice , , change in shoes Painful Nails Pt States Last PCP [...] limited STJ ROM, calor, or eccymosis b/l , Approximately 80_ percent LESS Dermatologic SKIN FINDINGS: Skin exam reveal s normal color, texture, elasticity, and turgor. There are no masses, nor excrescences. The interspaces are clear, B/L ULCER: VERRUCA: Reveals Multiple (4) , multi-loculated , mosaic, round, raised, flat- topped, petechial bleeding papulae(s), with cauliflower appearance and interrruption of skin lines, with pain to lateral compression, and size estimated at 2 mm diameter B/L Orthopedic GAIT ABNORMALITY: Pronated , abd ucted angle and base of gate , B/L , antalgic FOOTWEAR: good condition, exhi bit proper fit and accommodation for pedal deformities. MUSCLE STRENGTH: 5/5 all groups in a symmetrical fashion, B/L General Examination GENERAL APPEARANCE: Pt accom panied by , Female , who serves as , Cartographic Technician/Agronomy Teacher , additional Historian , and/who is physically present in exam room at time of visit Nails NAILS are: Elongated, overg rown, dystrophic, lytic, greater than 3mm thick, discolored and friable with crumbly malodorous subungual debris, with pain on palpation , TA , T5
--- OUTSIDE RECORDS SUMMARY | 2024-06-18 15:20 | XMS_ITS ---
Author Organization [facility] Address [address] [facility] [place] [address] Care Team Providers Care Power Manager Name Role Phone Juvencio Cortes MD Primary Care Provider Unava ilable Black, Sulema Unavailable [phone] Allergies No Known Allergies REASON FOR VISIT Wart(s), Heel pain, Painful nail(s) aggrevated by shoes causing difficulty standing/walking Medications Medication SIG (Take, Route, Frequency, Duration) Notes Start Date End Date Status Ciclopirox Olamine 0.77 % 1 application to affected area Externally to feet Twice a day for 30 days Active Atorvastatin Calcium 10 MG 1 tablet Oral ly Once a day for 30 day(s) Not-Taking Pramipexole Dihydrochloride 1.5 MG 1 tablet Orally Once a day for 30 day(s) Active Levothyroxine Sodium 112 MCG 1 tablet in the morning on an empty stomach Orally Once a day for 30 day(s) Active Vitamin D3 50 MCG (2000 UT) 1 capsule Orally Once a day for 30 day(s) Active Atorvastatin Calcium Active Social History Tobacco Use: Social History Observation Description Date Details (start date - stop date) Never Smoker NA - NA Tobacco Use/Smoking Question Answer Notes Are you a: nonsmoker Alcohol Screen Question Answer Notes Did you have a drink containing alcohol in the p ast year? No Points 0 Interpretation Negative Tobacco use other than smoking: Question Answer Notes Are you an other tobacco user? No Vital Signs Height 5ft4in in 10/13/2023 Weight 166 lbs 10/13/2023 BMI 28.49 kg/m2 10/13/2023 Procedures Procedure Date Ordered Date Performed Result Body Sit e 35697-OZUJEYC NAIL, 1-10/13/2023 N/A 74215-Tzql Destruction, -10/13/2023 N/A Encounters Encounter Location Date Provider Diagnosis [facility] [address] [address] 10/13/2023 Sulema Pérez Plantar fascial fibromatosis M72.2 ; Other viral [...] 10/13/2023 Plantar fascial fibromatosis (ICD-10 - M72.2) 10/13/2023 Other viral warts (ICD-10 - B07.8) 10/13/2023 Pain in left foot (ICD-10 - M79.672) 10/13/2023 Pain in right foot (ICD-10 - M79.671) 10/13/2023 Other myositis, left ankle and foot (ICD-10 - M60.872) 10/13/2023 Other myositis of right foot (ICD-10 - M60.871) 10/13/2023 Tinea unguium (ICD-10 - B35.1) 10/13/2023 Pain in right toe(s) (ICD-10 - M79.674) 10/13/2023 Pain in left toe(s) (ICD-10 - M79.675) Plan Of Treatment Pending Test Test Name Order Date 12109-SIPQODZ NAIL, -10/13/2023 51622-Fshv Destruction, -10/13/2023 Next Appt Details Follow Up: prn, Reason: Provider Name:Sulema Pérez , 08/30/2024 02:45:00 PM, [address] [place] [address], [id number], Procedure Notes * Category Sub-Category Detail Notes Wart Treatment Procedure Verrucae were de brided to pin-point bleeding margins with sterile 15 surgical blade (62717) , silver nitrate chemocautery applied , recomm.cont. use Wartstick 40 percent Salicylic acid application under occlusion as directed b/l Debride Nails 1-5 Procedure: Nail debrideme nt performed extensively to reduce/remove overall nail length, girth, thickness, subungual debris, and necrotic tissue, by manual and electrical means through the use of a nail nipper and/or dremel, to more viable healthy nail plate or bed tissue 1-5. Silver nitrate used for any petechial bleeding as necessary. Patient chooses, no pharmaceutical tx (92642) Progress Notes * ELVERANUJAAdriana VILLARsDOB:11/[birth year] (57 yo F)Acc No.[id number]:10/13/2023 Progress Note Patient:?Lara Cullen Provider:?Sulema Pérez DPM :1965???Age:57 Y???Sex:Female D ate:10/13/2023 Address:[address] [place] [address], [id number] Pcp:Juvencio Cortes MD Subjective: * Chief Complaints: * ???Wart(s)Heel painPainful n ail(s) aggrevated by shoes causing difficulty standing/walking * HPI: ???Skin problems:?Pt States PCP Visit: ?DATE?09/25/2023 ?Location:?B/L .?Heel pain:?Nature:?tenderness, sharp pain, stiffness.?Location:?, Arch , B/L.?Duration:?more than six months.?Course:?improved , at approximately 90 %.?Aggrevated:?shoe gear- flat flip flops with no arch support.?Treatments:?stretching , , ice , change in shoes.?Painful Nails:?Pt States Last PCP [...] * Social History:?Tobacco Use:?Tobacco Use/Smoking?Are you a:?nonsmoker ?Tobacco use other than smoking?Are you an other tobacco user??No ???Drugs/Alcohol:?Drugs?Have you used drugs other than those for medical reasons in the past 12 months??No ?Alcohol Screen?Did you have a drink containing alcohol in the past year??No ?Points?0 ?Interpretation?Negative ???Miscellaneous:?Caffeine: yes, frequency:, 1-2 cups per day. ?no Children. ?no Exercise. ?Marital status: single. ?Occupation: Unemployed. * Medications:?TakingAtorvasta tin Calcium Pramipexole Dihydrochloride 1.5 MG Tablet 1 tablet Orally Once a dayLevothyroxine Sodium 112 MCG Tablet 1 tablet in the morning on an empty stomach Orally Once a dayVitamin D3 50 MCG (1999) Capsule 1 capsule Orally Once a dayCiclopirox Olamine 0.77 % Cream 1 application to affected area Externally to feet Twice a dayTaking Atorvastatin Calcium Taking Pramipexole Dihydrochloride 1.5 MG Tablet 1 tablet Orally Once a dayTaking Levothyroxine Sodium 112 MCG Tablet 1 tablet in the morning on an empty stomach Orally Once a dayTaking Vitamin D3 50 MCG (1999) Capsule 1 capsule Orally Once a dayTaking Ciclopirox Olamine 0.77 % Cream 1 application to affected area Externally to feet Twice a dayNot-Taking/PRNAtorvastatin Calcium 10 MG Tablet 1 tablet Orally Once a dayMedication List reviewed and reconciled with the patientNot-Taking/PRN Atorvastatin Calcium 10 MG Tablet 1 tablet Orally Once a dayMedication List reviewed and reconciled with the patient * Allergies:?N.K.D.A.yes[Aller gies Verified] Objective: * Vitals:?Ht: 5ft4in, Wt:166, BMI:28.49, Shoe size: 8-8.5, Ht-cm: 162.56 cm, Wt- k.3 kg. * Examination: ???Dermatologic: ?SKIN FINDINGS:?Skin exam reveals normal color, texture, elasticity, and turgor. There are no masses, nor excrescences. The interspaces are clear, B/L.?VERRUCA:?Reveals Multiple ( 3 ), multi-loculated , mosaic, round, raised, flat-topped, petechial bleeding papulae(s), with cauliflower appearance and interrruption of skin lines, with pain to lateral compression, and size estimated at 2-3 mm diameter B/L.?Heel Pain: ?INSPECTION REVEALS:?Pain on Palpation to Plantar Fascia med. and central bands, intrinsic musc., infracalcaneal bursa, and med calc tubercle LEFT foot No pain: posterior/superior heel, achilles bursa/tendon, sinus tarsi, peroneals, or with lateral heel compression; no limited STJ ROM, calor, or eccymosis b/l , States approximately 90% LESS.?Nails: ?NAILS are:?Elongated, overgrown, dystrophic, lytic, greater than 3mm thick, discolored and friable with crumbly malodorous subungual debris, with pain on palpation , TA , T5.?Orthopedic: ?GAIT ABNORMALITY:?Pronated , abducted angle and base of gate , B/L.?FOOTWEAR:?shoe gear properties exacerbate patients foot/toe deformity.?General Examination: ?GENERAL APPEARANCE:?Pt accompanied by , Female , who serves as , Water Jet Loom Fixer/Manager Regional Sales , additional Historian , and/who is physically present in exam room at time of visit.? Assessment: * Assessment: 1.?Plantar fascial fibromato sis - M72.2, Response to treatment - Improvement?2.?Other viral warts - B07.8 (Primary)?3.?Pain in left foot - M79.672?4.?Pain in right foot - M79.671?5.?Other myositis, left ankle and foot - M60.872?6.?Other myositis of right foot - M60.871?7.?Tinea unguium - B35.1?8.?Pain in right toe(s) - M79.674?9.?Pain in left toe(s) - M79.675? Plan: * Treatment: 2.?Tinea unguium?Procedure: 90293-CCZCKZO NAIL, 1-5 * Procedures:?Debride Nails 1-5:?Procedure:?Nail debridement performed extensively to reduce/remove overall nail length, girth, thickness, subungual debris, and necrotic tissue, by manual and electrical means through the use of a nail nipper and/or dremel, to more viable healthy nail plate or bed tissue 1-5. Silver nitrate used for any petechial bleeding as necessary. Patient chooses, no pharmaceutical tx (35121).?Wart Treatment:?Procedure?Verrucae were debrided to pin-point bleeding margins with sterile 15 surgical blade (83233) , silver nitrate chemocautery applied , recomm.cont. use Wartstick 40 percent Salicylic acid application under occlusion as directed b/l.? * Procedure Codes:?27341 DEBRI DE NAIL, 1-5, Modifiers: XS 80340 Wart Destruction, 1-14, Modifiers: XS * Preventive [...] with the present treatment plan for their condition.Stress the importanc of wearing supportive shoes at all times.? * Follow Up:?prn * Images: * Sign off status: Completed true * Provider:?uSlema Pérez DPM Date:?2023 Generated for Ashwin arredondo/Carri/Kojo on:?06/18/2024 03:19 PM EST History and Physical Notes * HPI (History of Present Illness) Category Sub-Category Detail Notes Category Not es Heel pain Duration: more than six months Nature: tenderness, sharp pa in, stiffness Location: , Arch , B/L Aggravated: shoe gear- flat flip flops with no arch support Course: improved , at approx imately 90 % Treatments: stretching , , ice , change in shoes Painful Nails Pt [...] STJ ROM, calor, or eccymosis b/l , States approximately 90% LESS Dermatologic SKIN FINDINGS: Skin exam reveal s normal color, texture, elasticity, and turgor. There are no masses, nor excrescences. The interspaces are clear, B/L ULCER: VERRUCA: Reveals Multiple ( 3 ), multi-loculated , mosaic, round, raised, flat- topped, petechial bleeding papulae(s), with cauliflower appearance and interrruption of skin lines, with pain to lateral compression, and size estimated at 2-3 mm diameter B/L Orthopedic GAIT ABNORMALITY: Pronated , abducted ang le and base of gate , B/L FOOTWEAR: shoe gear properties exacerbate patients foot/toe deformity General Examination GENERAL APPEARANCE: Pt accom panied by , Female , who serves as , Water Jet Loom Fixer/Manager Regional Sales , additional Historian , and/who is physically present in exam room at time of visit Nails NAILS are: Elongated, overg rown, dystrophic, lytic, greater than 3mm thick, discolored and friable with crumbly malodorous subungual debris, with pain on palpation , TA , T5
--- NOTE | 2024-06-18 16:21 | A.OFFPC_ITS ---
Vital Signs 06/18/24 16:22 Height 5 ft 4 in Weight 166 lb 6 oz BMI 28.6 BP 110/72 Blood Pressure Location Lt brachial Position Sitting Pulse 92 Pulse Source Pulse Oximeter Pulse Oximetry (%) 97 Oxygen Delivery Method Room Air Intake Visit Reasons: Rsched from 02/08 --- Follow Up Shoe Shanker Required: No Accompanied by: Self / Same As Patient Allergies No Known Allergies Allergy (Verified 06/20/24 03:07) Medication List - Last Reconciled 06/20/24 by Juvencio Cortes MD atorvastatin 10 mg PO BEDTIME 90 days cholecalciferol (vitamin D3) 2,000 units PO DAILY 90 days levothyroxine 137 mcg PO DAILY 90 days meloxicam 15 mg PO DAILY multivitamin (Multiple Vitamins tablet) 1 tab PO DAILY 90 days pramipexole 1.5 mg PO BEDTIME Tobacco use date assessed: 06/18/24 Dental Screening Dental Screen Date: 06/18/24 Did you have a dental visit in the last 12 months?: Yes Did you have a dental problem in the last 6 months where you did not have access to dental care?: No Was dental information given to patient?: Patient has dentist HPI Rsched from 02/08 --- Follow Up HPI Details Patient comes in today for her follow-up visit - was last seen in August 2023 States that she feels okay She denies any headaches or dizziness Denies any chest pains, no shortness of breath No nausea/vomiting, no abdominal pain No change in bowel habits noted Needs a few of her Rx refilled She had her follow-up labs done back in April 2024 - to discuss her results She would also like to get her flu shot today [facility] Medical History Intellectual disability Osteoarthritis of left shoulder Overweight (BMI 25.0-29.9) Depression Restless leg syndrome GERD without esophagitis Impaired fasting glucose Pure hypercholesterolemia Post-surgical hypothyroidism Vitamin D deficiency Surgical History Hx of thyroidectomy No pertinent past surgical history Family History Father Diabetes Mother Diabetes Hypertension Social History (Reviewed 06/18/24 @ 16:22 by SHELLY Sal Housing: Apartment Alcohol intake: never Patient Tobacco Use Status: Never used Tobacco e-Cigarette/Vaping Use: Never Used Second Hand Smoke Exposure: No service: No Current occupational status: disabled Cognitive needs: No Hearing needs: No Vision needs: No Questionnaire PHQ-9 Over the last 2 weeks, how often have you been bothered by any of the following problems? 1. Little interest or pleasure in doing things: not at all 2. Feeling down, depressed, or hopeless: not at all 3. Trouble falling or staying asleep, or sleeping too much: not at all 4. Feeling tired or having little energy: not at all 5. Poor appetite or overeating: not at all 6. Feeling bad about yourself - or that you are a failure or have let yourself or your family down: not at all 7. Trouble concentrating on things, such as reading the newspaper or watching television: not at all 8. Moving or speaking so slowly that other people could have noticed. Or the opposite - being so fidgety or restless that you have been moving around a lot more than usual: not at all 9. Thoughts that you would be better off or of hurting yourself in some way: not at all Total score: 0 Depression Screening Interpretation: Negative Depression Screening Done: Yes 06765 - PHQ-9 Billing: Yes Source: Developed by Drs. Xavi Chan, Shelby Arenas, Christopher Gaspar and colleagues, with an educational samuel from [employer]. Thrive Questionnaire Date Thrive assessed: 06/18/24 I am a: Patient What is your living situation today?: I have a steady place to live Within the past 12 months, did the food you bought not last and you didn't have the money to get more?: Never true Within the past 12 months, did you worry whether your food would run out before you got money to buy more?: Never true Do you have trouble paying for medicines?: No Do you have trouble getting transportation to medical appointments?: No Do you have trouble paying your heating and electricity bill?: No Do you have trouble taking care of your child, family member or friend?: No Do you have trouble with day-to-day activities such as bathing, preparing meals, shopping, managing finances, etc.?: No Are you currently unemployed and looking for a job?: No Are you interested in more education?: No Please select the resources that you would like help with: None Currently or been in a relationship where the following occur: No concerns reported THRIVE Score: 0 AUDIT C Alcohol Use Questionnaire (AUDIT-C) 1. How often do you have a drink containing alcohol?: Never 3. How often do you have six or more drinks on one occasion?: Never Total Score: 0 Score Reviewed/Action Taken: Yes ARLEN-7 AMB Questionnaire ARLEN-7 Date ARLEN - 7 assessed: 06/18/24 Feeling nervous, anxious, or on edge: 0 = Not at all Not being able to stop or control worryin = Not at all Worrying too much about different things: 0 = Not at all Trouble relaxin = Not at all Being so restless that it is hard to sit still: 0 = Not at all Becoming easily annoyed or irritable: 0 = Not at all Feeling afraid as if something awful might happen: 0 = Not at all Total ARLEN-7 score (0-4 normal; 5-9 mild; 10-14 moderate; 15-21 severe): 0 Source: Developed by Drs. Xavi Chan, Shelby Arenas, Christopher Gaspar and colleagues, with an educational samuel from [employer]. Review of Systems Const Denies chills, Denies fatigue, Denies fever(s) and Denies headache(s) ENT Denies dysphagia, Denies dizziness, Denies otalgia, Denies headache(s), Denies neck pain, Denies odynophagia and Denies sore throat Card Denies chest pain, Denies palpitations and Denies dyspnea Resp Denies chest congestion, Denies cough and Denies dyspnea GI Denies abdominal pain, Denies constipation, Denies dysphagia, Denies heartburn, Denies diarrhea, Denies nausea, Denies odynophagia and Denies vomiting Denies difficulty voiding, Denies dysuria and Denies urinary urgency Musc Denies back pain and Denies neck pain Skin/Breast Denies rash Neuro Denies dizziness and Denies headache(s) Endo Denies fatigue and Denies palpitations Physical exam (Primary Care) Vital Signs: Last Vital Signs Pulse 92 06/18/24 16:22 BP 110/72 06/18/24 16:22 Pulse Ox 97 06/18/24 16:22 Oxygen Delivery Method Room Air 06/18/24 16:22 BMI result Body Mass Index 28.6 Tobacco/Smoking Status: Tobacco use Status Tobacco use date assessed 06/18/24 06/18/24 16:27 Patient Tobacco Use Status Never used Tobacco 06/18/24 16:27 e-Cigarette/Vaping Use Never Used 06/18/24 16:27 PHQ-9: PHQ-9 Score PHQ-9: Total score 0 06/18/24 16:44 Depression Screening Interpretation: Negative Thrive Assessment: Date of Thrive Assessment Date Thrive assessed 06/18/24 06/18/24 16:27 Currently or been in a relationship where the following occur: No concerns reported Const General: no acute distress and alert HENMT Ears: TM's normal bilaterally and EAC's normal Throat: Yes posterior oropharynx normal and Yes tonsils normal (no TP congestion) Neck Neck: Yes supple and No lymphadenopathy Thyroid: Thyroid normal Resp Auscultation: clear to auscultation bilaterally, no rales and no wheezes Cardio Rate: regular rate Rhythm: regular rhythm Heart sounds: no murmurs GI Palpation (GI): Soft to palpation and nontender Auscultation: normal bowel sounds General: Yes no CVA tenderness Back/Spine/Pelvis Back: no CVA tenderness Thoracic/Lumbar Spine: No lumbar spinal tenderness Skin Rashes: no rashes Extrem General: Yes no clubbing, cyanosis or edema Left upper extremity: shoulder/upper arm Details: tenderness (mild) Location: of the A-C joint and normal ROM Office Procedures Flu Questionnaire Does the patient have a severe egg allergy?: No Does the patient have severe life threatening allergies?: No Does the patient have a fever or illness today?: No Has the patient ever had Guillain-Menifee Syndrome?: No Has the patient ever had any past reaction to a flu shot?: No Immunizations Fluarix Triv 8560-9186 (PF) 45 mcg (15 mcg x 3)/0.5 mL IM syringe Performing Provider: Juvencio Cortes MD [facility] Administered by: DILLON Sal on 06/18/24 16:45 Dose Route Admin Location Dispensed Lot Number Expiration Date NDC Compliance Program Manager 0.5 mL IM Left Deltoid 0.5 mL [id number] 11/01/24 [id number] [employer] VIS Given Date VIS Provided VIS Publication Date 06/18/24 Single Vaccine 20 Eligibility Eligibility Date Funding Source Not VF Eligible 06/18/24 Private Results Reviewed Results Reviewed: Laboratory Tests 04/26/24 04/26/24 09:42 09:45 WBC 5.0 Hgb 13.3 Hct 39.5 Plt Count 287 Sodium 141 Potassium 4.0 Creatinine 0.88 Estimated GFR > 60 Fasting Glucose 104 H Hemoglobin A1c % 5.8 Calcium 9.1 AST 26 ALT 23 Triglycerides 108 Cholesterol 271 H LDL Cholesterol, Calc 163 H HDL Cholesterol 87 Vitamin B12 264 25-OH Vitamin D Total 29.4 L TSH 6.01 H Free T4 1.09 Ur Specific [place] 1.025 Urine Protein Negative Urine Glucose (UA) Negative Urine Blood Negative Urine Nitrite Negative Ur Leukocyte Esterase Negative Coding Level of Care Code Est Pt Level 4 (18045) Diagnoses Pure hypercholesterolemia E78.00 Post-surgical hypothyroidism E89.0 Impaired fasting glucose R73.01 GERD without esophagitis K21.9 Vitamin D deficiency E55.9 Osteoarthritis of left shoulder, unspecified osteoarthritis type M19.012 Osteoarthritis type: unspecified Restless leg syndrome G25.81 Intellectual disability F79 Episode of recurrent major depressive disorder, unspecified depression episode severity F33.9 Depression Type: major depressive disorder Major depression recurrence: recurrent Active/Remission status: currently active Major depression episode severity: unspecified Overweight (BMI 25.0-29.9) E66.3 Additional Codes PHQ-9 - 61765 - PHQ-9 Billing: Yes ([id number]) Assessment & Plan Assessment & Plan (1) Pure hypercholesterolemia: Code(s): E78.00 - Pure hypercholesterolemia, unspecified Category: Medical Plan: Results of her labs done back in April 2024 reviewed and discussed with patient - she is advised that her cholesterol numbers have increased again slightly from previous Reinforced low cholesterol diet Continue Atorvastatin 10 mg QD for now - patient admits that she was not taking her medication regularly She would like to continue on her current dose and does not want to have it raised further at this time - states that she will start taking her medication regularly Will recheck her labs and fasting lipids in 4 months for follow-up (2) Post-surgical hypothyroidism: Code(s): E89.0 - Postprocedural hypothyroidism Category: Medical Plan: Patient's serum TSH level is still slightly elevated but has improved significantly from previous; her free T4 level is now normal Continue Levothyroxine 137 mcg QD Patient used to see Dr. Keen for endocrinology follow up but has not been back to see him in a couple of years now - was reportedly told that her PCP can just continue to manage her thyroid and to see them again on an as-needed basis Will have her recheck her TFTs and other labs in 4 months for follow up (3) Impaired fasting glucose: Code(s): R73.01 - Impaired fasting glucose Category: Medical Plan: Patient's FBS was slightly elevated at 104 mg/dL on her recent labs; her HgbA1c remains normal at 5.8% Reinforced low calorie/low carb diet; exercise as tolerated (4) GERD without esophagitis: Code(s): K21.9 - Gastro-esophageal reflux disease without esophagitis Category: Medical Plan: Dietary restrictions reinforced (5) Vitamin D deficiency: Code(s): E55.9 - Vitamin D deficiency, unspecified Category: Medical Plan: Continue vitamin D3 2000 units QD (6) Osteoarthritis of left shoulder: Code(s): M19.012 - Primary osteoarthritis, left shoulder Category: Medical Qualifiers: Osteoarthritis type: unspecified Qualified Code(s): M19.012 - Primary osteoarthritis, left shoulder Plan: X-rays of the left shoulder done a couple of years ago revealed (+) mild OA over the left AC joint Continue Meloxicam 15 mg QD with food PRN for pain Hav recommend physical therapy if her shoulder continues to bother her - patient will call for referral when needed (7) Restless leg syndrome: Code(s): G25.81 - Restless legs syndrome Category: Medical Plan: Continue Pramipexole 1.5 mg Q HS (8) Intellectual disability: Comment: Patient is intellectually handicapped/challenged - reportedly had meningitis as an and spent months in the ICU Family states that she never did get to complete school (only finished 3rd grade) and is on permanent disability as a result of this Code(s): F79 - Unspecified intellectual disabilities Category: Medical Plan: Patient's sister is her HCP and helps her make decisions regarding her health and medical issues (9) Depression: Code(s): F32.9 - Major depressive disorder, single episode, unspecified Category: Medical Qualifiers: Depression Type: major depressive disorder Major depression recurrence: recurrent Active/Remission status: currently active Major depression episode severity: unspecified Qualified Code(s): F33.9 - Major depressive disorder, recurrent, unspecified Plan: She was on Citalopram 10 mg QD in the past but patient came off her Rx on her own a couple of years ago and reportedly has not had any increase in her depression since States that she will call for Rx if her depression starts to flare up again (10) Overweight (BMI 25.0-29.9): Code(s): E66.3 - Overweight Category: Medical Plan: Reinforced diet/exercise as tolerated/lose weight - she has gained about 10 lbs since her last visit Plan Per request, flu vaccine given today Follow up in 4 months Orders: Orders Thyroid Stimulating Hormone 4 Months E03.9 - Hypothyroidism, unspecified Lipid Panel 4 Months E78.00 - Pure hypercholesterolemia, unspecified Vitamin D 25-OH Total 4 Months E55.9 - Vitamin D deficiency, unspecified Influenza 4035-8574 Immunization 06/18/24 Z23 - Encounter for immunization Free T4 (Free Thyroxine) 4 Months E03.9 - Hypothyroidism, unspecified Complete Blood Count Auto Diff 4 Months D64.9 - Anemia, unspecified Comprehensive [place]. Panel Fast 4 Months E78.00 - Pure hypercholesterolemia, unspecified UA CC w/rflx Micro + Cult 4 Months R30.0 - Dysuria Medications: Refilled cholecalciferol (vitamin D3) 2,000 units PO DAILY 90 days 90 caps 3RF E55.9 - Vitamin D deficiency, unspecified levothyroxine To be taken on an empty stomach 1st thing in the morning, with a glass of water; do not eat or drink anything else for the next 30 minutes 137 mcg PO DAILY 90 days 90 tabs 3RF E89.0 - Postprocedural hypothyroidism atorvastatin 10 mg PO BEDTIME 90 days 90 tabs 1RF pramipexole 1.5 mg PO BEDTIME 90 tabs 0RF G25.81 - Restless legs syndrome
[2024-06-18 16:22] VITALS: BP 110/72; PULSE 92; O2SAT 97; BMI 28.6
== END 2024-06-18 16:47 | disposition home or self-care (01) ==
PROVIDERS: PCP Internal Medicine; Visit Provider Internal Medicine
DX: Z23 Encounter for immunization (principal)

== ENCOUNTER → 2024-06-18 15:17 | Outpatient (BNVA) | payer OTHER, SELFPAY | PROVIDERS: PCP Internal Medicine; Visit Provider Internal Medicine | DX: Z23 Encounter for immunization (principal); E78.00 Pure hypercholesterolemia, unspecified; E89.0 Postprocedural hypothyroidism; R73.01 Impaired fasting glucose; K21.9 Gastro-esophageal reflux disease without esophagitis; E55.9 Vitamin D deficiency, unspecified; M19.012 Primary osteoarthritis, left shoulder; G25.81 Restless legs syndrome; F79 Unspecified intellectual disabilities; F33.9 Major depressive disorder, recurrent, unspecified; E66.3 Overweight | CPT/HCPCS: 90471; 90656; 96127; 99212 ==

== ENCOUNTER 2024-07-13 13:02 | Outpatient (REF) | payer OTHER, SELFPAY ==
--- OUTSIDE RECORDS SUMMARY | 2024-07-13 15:49 | XMS_ITS | Patient Health Record ---
Author Organization [facility] ro[place]le [place] Address [address] [facility] [place] [address] Care Team Providers Care Paper Roll Machine Operator Name Role Phone Sebastian MACHADO, Juvencio Primary Care Provider Matt griffin Sulema Pérez Unavailable [phone] Allergies No Known Allergies Reason For Referral [...] W/U Status Risk Notes Problem Plantar wart (85649998) Plantar wart (B07.0) Active confirmed Problem Plantar fascial fibromatosis (69079037) Plantar fascial fibromatosis (M72.2) Active confirmed Problem [id number] Hammer toe of right foot (M20.41) Active confirmed Problem 933028543 Hammer toe of left foot (M20.42) Active confirmed Problem 578003747 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 confirmed Problem 462862394 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) Active confirmed Problem 431020603 Skin ulcer of right heel, limited to breakdown of skin (L97.411) Active confirmed Vital Signs Blood pressure diastolic 80 mm Hg 05/27/2024 Height 5ft4in in 05/27/2024 Blood pressure systolic 134 mm Hg 05/27/2024 Weight 172 lbs 05/27/2024 BMI 29.52 kg/m2 05/27/2024 Procedures Procedure Date Ordered Date Performed Result Body Sit e 56609-VJSHEPQ NAIL, -10/13/2023 N/A 14414-Lvmd Destruction, -10/13/2023 N/A 15338-UMRXHHM NAIL, -02/09/2024 N/A 16116-Mtuo Destruction, -02/09/2024 N/A 11281-QSNBNYE NAIL, -05/27/2024 N/A 41522-Dqyb Destruction, -05/27/2024 N/A Encounters Encounter Location Date Provider Diagnosis [facility] [address] 10/13/2023 Sulema Black Plantar fascial fibromatosis M72.2 ; Other viral warts B07.8 ; Pain in left foot M79.672 ; Pain in right foot M79.671 ; Other myositis, left ankle and foot M60.872 ; Other myositis of right foot M60.871 ; Tinea unguium B35.1 ; Pain in right toe(s) M79.674 and Pain in left toe(s) M79.675 [facility] [address] [address] 02/09/2024 Sulema Black Plantar fascial fibromatosis M72.2 ; Other viral warts B07.8 ; Pain in left foot M79.672 ; Pain in right foot M79.671 ; Other myositis, left ankle and foot M60.872 ; Other myositis of right foot M60.871 ; Tinea unguium B35.1 ; Pain in right toe(s) M79.674 and Pain in left toe(s) M79.675 [facility] [place] [address] [place] [address] 05/27/2024 Sulema Black Plantar fascial fibromatosis M72.2 [...] Treatment Pending Test Test Name Order Date 92378-CWPJLNJ NAIL, -10/13/2023 96183-JRSMFZR NAIL, -02/09/2024 23541-ABUPKZZ NAIL, -5 05/27/2024 26095-Yjjq Destruction, -14 05/27/2024 47886-Ooow Destruction, -14 02/09/2024 53820-Zxno Destruction, -14 10/13/2023 59796-Gbic Destruction, -14 09/17/2021 37317-Capr Destruction, -14 12/10/2021 84552-Rkoi Destruction, -14 03/04/2022 19604-Sifv Destruction, -14 07/11/2022 66859-Tjlo Destruction, -10/14/2022 50216-Bkqu Destruction, -02/13/2023 52486-Qzqo Destruction, -06/16/2023 84156- Debride <25 sq cm 07/11/2022 64238 I&D ABSCESS- SIMPLE,SINGLE 022 Next Appt Details Provider Name:Sulema Pérez , 08/30/2024 02:45:00 PM, [address] [place], [address], Insurance Providers Payer Name Payer Address Payer Phone Subscriber Number Group Number Insured Name Patient Relationship to Insured Coverage Start Date Coverage End Date [facility] [employer] Claims [address] [place] [id number] Lara Felipe Self - patient is the insured Medical (General) History Medical History History ICD Code Depression Reflux ( GERD) Impaired Fasting Glucose osteoarthritis Hypothyroidism Hypercholesterolemia Restless leg syndrome Vitamin D deficiency Surgical History Surgery Date(Month/Year) thyroidectomy, complete
--- OUTSIDE RECORDS SUMMARY | 2024-07-13 15:49 | XMS_ITS ---
Author Organization [facility] Address [address] [facility] [place] [address] Care Team Providers Care Mergers [employer] Acquisitions Associate Name Role Phone Terrell Cortes MDh Primary Care Provider Unava ilable Black, Sulema Unavailable [phone] Allergies No Known Allergies REASON FOR VISIT [...] user? No Vital Signs Height 5ft4in in 05/27/2024 Weight 172 lbs 05/27/2024 BMI 29.52 kg/m2 05/27/2024 Blood pressure systolic 134 mm Hg 05/27/19 25 Blood pressure diastolic 80 mm Hg 025 Procedures Procedure Date Ordered Date Performed Result Body Sit e 50635-MENWVSR NAIL, -05/27/2024 N/A 49419-Scih Destruction, -05/27/2024 N/A Encounters Encounter Location Date Provider Diagnosis [facility] [address] [address] 05/27/2024 Sulema Beto Plantar fascial fibromatosis M72.2 [...] Treatment Pending Test Test Name Order Date 56736-EOCLQDC NAIL, -05/27/2024 43101-Haqv Destruction, 05-1805/27/2024 Next Appt Details Follow Up: prn, Reason: Provider Name:Sulema Pérez , 08/30/2024 02:45:00 PM, [address] [place], [address], Procedure Notes * Category Sub-Category Detail Notes Wart Treatment Procedure Verrucae were de brided to pin-point bleeding margins with sterile 15 surgical blade (10329) , silver nitrate chemocautery applied ,AGAIN, , [...] necessary to maintain effective symptomatic relief - 59941 Progress Notes * ELVERANUJAAlbert VILLARanniesDOB:11[birth year] (58 yo F)Acc No.[id number]:05/27/2024 Progress Note Patient:?Lara CULLEN Provider:Philippe Pérez DPM :1965???Age:58 Y???Sex:Female D ate:05/27/2024 Address:[address] [place], [place] [id number] Pcp:Juvencio Cortes MD Subjective: * Chief Complaints: [...] , Female , who serves as , Food Preparer/Assembly Line Robot Operator , additional Historian , and/who is physically [...] - M79.675??? Plan: * Treatment: 2.?Tinea unguium?Procedure: 15802-PHRXTFM NAIL, 1-5 * Procedures:?Debride Nails 1-5:?Procedure:?Due to [...] necessary to maintain effective symptomatic relief - 65417.?Wart Treatment:?Procedure?Verrucae were debrided to pin-point bleeding margins with sterile 15 surgical blade (96373) , silver nitrate chemocautery applied ,AGAIN, , , recomm.cont. use Wartstick 40 percent Salicylic acid application under occlusion as directed b/l.? * Procedure Codes:?63793 DEBRI DE NAIL, 1-5, Modifiers: XS 74195 Wart Destruction, 1-14, Modifiers: XS * Preventive [...] Pérez DPM Date:?2024 Generated for Ashwin arredondo/Carri/Lupilloitting on:?07/13/2024 03:48 PM EDT History and Physical Notes * HPI (History [...] , Female , who serves as , Food Preparer/Assembly Line Robot Operator , additional Historian , and/who is physically present in exam room at time of visit Nails NAILS are: Elongated, overg rown, dystrophic, lytic, greater than 3mm thick, discolored and friable with crumbly malodorous subungual debris, with pain on palpation , TA , T5
--- OUTSIDE RECORDS SUMMARY | 2024-07-13 15:49 | XMS_ITS ---
Author Organization [facility] Address [address] [facility] [place] [address] Care Team Providers Care Motocross Racer Name Role Phone Juvencio Cortes MD Primary Care Provider Unava ilable Black, Sulema Unavailable [phone] Allergies No Known Allergies REASON FOR VISIT [...] Status Risk Notes Problem Plantar fascial fibromatosis (83953270) Plantar fascial fibromatosis (M72.2) Active confirmed Vital Signs Height 5ft 4in in 02/09/2024 Weight 166 lbs 02/09/2024 BMI 28.49 kg/m2 02/09/2024 Procedures Procedure Date Ordered Date Performed Result Body Sit e 59593-WJERKBW NAIL, 1-5 02/09/2024 N/A 84384-Ujwv Destruction, 1-14 02/09/2024 N/A Encounters Encounter Location Date Provider Diagnosis [facility] [address] [address] 02/09/2024 Sulema Black Plantar fascial fibromatosis M72.2 [...] Treatment Pending Test Test Name Order Date 51953-HDUVWVC NAIL, 1-5 02/09/2024 54376-Szbx Destruction, 1-02/09/2024 Next Appt Details Follow Up: prn, Reason: Provider Name:Sulema Pérez , 08/30/2024 02:45:00 PM, [address] [employer] [address] [employer], [place], [address], Procedure Notes * Category Sub-Category Detail Notes Wart Treatment Procedure Verrucae were de brided to pin-point bleeding margins with sterile 15 surgical blade (06683) , silver nitrate chemocautery applied , STILL, [...] use of a nail nipper and/or dremel-type regrinder, to a more viable healthy nail plate or bed tissue 1-5. Silver nitrate used for any petechial bleeding as necessary. Definitive antifungal treatment options have been reviewed and discussed with the patient. The patient chooses, no pharmaceutical tx - 58560 Progress Notes * Adriana UCLLENsDOB:[birth year] (58 yo F)Acc No.[id number]:02/09/2024 Progress Note Patient:Lara Olivares Provider:?Sulema Pérez DPM :1965???Age:58 Y???Sex:Female D ate:02/09/2024 Address:[address] [place], [place] [id number] Pcp:Juvencio Cortes MD Subjective: * Chief Complaints: [...] , Female , who serves as , Settlement Clerk/Make Up Editor , additional Historian , and/who is physically [...] - M79.675? Plan: * Treatment: 2.?Tinea unguium?Procedure: 43480-CETDMRF NAIL, 1-5 * Procedures:?Debride Nails 1-5:?Procedure:?Performance of this nail treatment by a nonprofessional would put this patients foot and overall health at risk. Therefore, nail debridement was performed extensively to reduce/remove overall nail length, girth, thickness, subungual debris, and necrotic tissue, by manual and/or electrical means through the use of a nail nipper and/or dremel-type regrinder, to a more viable healthy nail plate or bed tissue 1-5. Silver nitrate used for any petechial bleeding as necessary. Definitive antifungal treatment options have been reviewed and discussed with the patient. The patient chooses, no pharmaceutical tx - 41939.?Wart Treatment:?Procedure?Verrucae were debrided to pin-point bleeding margins with sterile 15 surgical blade (10736) , silver nitrate chemocautery applied , STILL, recomm.cont. use Wartstick 40 percent Salicylic acid application under occlusion as directed b/l.? * Procedure Codes:?97067 DEJA DE NAIL, 1-5, Modifiers: XS 88884 Wart Destruction, -14, Modifiers: XS * Preventive [...] Pérez DPM Date:?2023 Generated for Ashwin arredondo/Carri/Kojo on:?07/13/2024 03:48 PM EDT History and Physical [...] , Female , who serves as , Settlement Clerk/Make Up Editor , additional Historian , and/who is physically present in exam room at time of visit Nails NAILS are: Elongated, overg rown, dystrophic, lytic, greater than 3mm thick, discolored and friable with crumbly malodorous subungual debris, with pain on palpation , TA , T5
--- OUTSIDE RECORDS SUMMARY | 2024-07-13 15:49 | XMS_ITS ---
Author Organization [facility] Address [address] [facility] [place] [address] Care Team Providers Care Medicare Biller Name Role Phone Juvencio Cortes MD Primary Care Provider Unava ilable Black, Sulema Unavailable [phone] Allergies No Known Allergies REASON FOR VISIT [...] Ordered Date Performed Result Body Sit e 25598-OUOCBFO NAIL, 1-10/13/2023 N/A 81763-Adsm Destruction, -10/13/2023 N/A Encounters Encounter Location Date Provider Diagnosis [facility] [address] [address] 10/13/2023 Sulema Pérez Plantar fascial fibromatosis M72.2 [...] Treatment Pending Test Test Name Order Date 96586-TKGBJWL NAIL, -10/13/2023 38859-Mqjk Destruction, -10/13/2023 Next Appt Details Follow Up: prn, Reason: Provider Name:Sulema Pérez , 08/30/2024 02:45:00 PM, [address] [place] [address], [address], Procedure Notes * Category Sub-Category Detail Notes Wart Treatment Procedure Verrucae were de brided to pin-point bleeding margins with sterile 15 surgical blade (35760) , silver nitrate chemocautery applied , recomm.cont. [...] as necessary. Patient chooses, no pharmaceutical tx (71038) Progress Notes * ELVERANUJAAdriana VILLARsDOB:11[birth year] (57 yo F)Acc No.[id number]:10/13/2023 Progress Note Patient:?Lara Cullen Provider:?Sulema Pérez DPM :1965???Age:57 Y???Sex:Female D ate:10/13/2023 Address:[address] [place] [address], [facility] Pcp:Juvencio Cortes MD Subjective: * Chief Complaints: [...] , Female , who serves as , Psychologist Research Assistant/Breadman , additional Historian , and/who is physically [...] - M79.675? Plan: * Treatment: 2.?Tinea unguium?Procedure: 94139-IOZVXQO NAIL, 1-5 * Procedures:?Debride Nails 1-5:?Procedure:?Nail debridement performed extensively to reduce/remove overall nail length, girth, thickness, subungual debris, and necrotic tissue, by manual and electrical means through the use of a nail nipper and/or dremel, to more viable healthy nail plate or bed tissue 1-5. Silver nitrate used for any petechial bleeding as necessary. Patient chooses, no pharmaceutical tx (23892).?Wart Treatment:?Procedure?Verrucae were debrided to pin-point bleeding margins with sterile 15 surgical blade (53453) , silver nitrate chemocautery applied , recomm.cont. use Wartstick 40 percent Salicylic acid application under occlusion as directed b/l.? * Procedure Codes:?59037 DEBRI DE NAIL, 1-5, Modifiers: XS 05616 Wart Destruction, 1-14, Modifiers: XS * Preventive [...] Provider:?Sulema Pérez DPM Date:?2023 Generated for Ashwin arredondo/Carri/Kooj on:?07/13/2024 03:49 PM EDT History and Physical Notes * [...] , Female , who serves as , Psychologist Research Assistant/Breadman , additional Historian , and/who is physically present in exam room at time of visit Nails NAILS are: Elongated, overg rown, dystrophic, lytic, greater than 3mm thick, discolored and friable with crumbly malodorous subungual debris, with pain on palpation , TA , T5
== END 2024-07-13 13:03 | disposition home or self-care (01) ==
LOC: HO.MAMMO 13:02
PROVIDERS: PCP Internal Medicine; Visit Provider Internal Medicine
DX: Z12.31 Encounter for screening mammogram for malignant neoplasm of breast (principal)
CPT/HCPCS: 77063; 77067

== ENCOUNTER → 2024-07-13 13:30 | Outpatient (BNV) | payer OTHER, SELFPAY | PROVIDERS: PCP Internal Medicine; Visit Provider Internal Medicine | DX: Z12.31 Encounter for screening mammogram for malignant neoplasm of breast (principal) | CPT/HCPCS: 77063; 77067 ==

== ENCOUNTER 2024-10-26 08:18 | Outpatient (REF) | payer OTHER, SELFPAY ==
--- OUTSIDE RECORDS SUMMARY | 2024-10-26 08:27 | XMS_ITS | Patient Health Record ---
Author [facility] Address [address] [facility] [place] [address] Care Team Providers Care Bufferer Name Role Phone Sebastian MACHADO, Juvencio Primary Care Provider Unaolga ilsharon Sulema Pérez Unavailable [phone] Allergies No Known Allergies Results Component Value Reference Range Notes X ray : Ankle, right 3V Reviewed date:08/30/2024 03:15:15 PM Interpretation:See Examination above Performing Lab: Notes/Report: See Examination above Reason For Referral No Information Medications Medication SIG (Take, Route, Frequency, Duration) Notes Start Date End Date Status Medrol 4 MG as directed Orally daily for 6 days 08/30/2024 Active Atorvastatin Calcium 10 MG 1 tablet Oral ly Once a day for 30 day(s) Not-Taking Atorvastatin Calcium Not-Taking Ciclopirox Olamine 0.77 % 1 application to affected area Externally to feet Twice a day for 30 days Not-Taking Vitamin D3 50 MCG (1999 UT) [...] W/U Status Risk Notes Problem Plantar wart (88676299) Plantar wart (B07.0) Active confirmed Problem Plantar fascial fibromatosis (M72.2) Active confirmed Problem 176212313 Hammer toe of right foot (M20.41) Active confirmed Problem 603863379 Hammer toe of left foot (M20.42) Active confirmed Problem 511816167 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 confirmed Problem 854873316 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) Active confirmed Problem 896456003 Skin ulcer of right heel, limited to breakdown of skin (L97.411) Active confirmed Vital Signs Blood pressure diastolic 80 mm Hg 08/30/2024 Height 5ft4in in 08/30/2024 Blood pressure systolic 133 mm Hg 08/30/2024 Weight 167 lbs 08/30/2024 BMI 28.66 kg/m2 08/30/2024 Procedures Procedure Date Ordered Date Performed Result Body Sit e 10647-DPJNHFK NAIL, 1-02/09/2024 N/A 41142-Jddv Destruction, -02/09/2024 N/A 51768-LMRILTB NAIL, -08/30/2024 N/A 45343-Ythz Destruction, -08/30/2024 N/A 69648-Atyc Destruction, -05/27/2024 N/A 87476-CLTSWHC NAIL, -05/27/2024 N/A Encounters Encounter Location Date Provider Diagnosis [facility] [address] [address] 02/09/2024 Sulema Black Plantar fascial fibromatosis M72.2 ; Other viral warts B07.8 ; Pain in left foot M79.672 ; Pain in right foot M79.671 ; Other myositis, left ankle and foot M60.872 ; Other myositis of right foot M60.871 ; Tinea unguium B35.1 ; Pain in right toe(s) M79.674 and Pain in left toe(s) M79.675 [facility] [place] [address] [place] [address] 05/27/2024 Sulema Black Plantar fascial fibromatosis M72.2 ; Other viral warts B07.8 ; Pain in left foot M79.672 ; Pain in right foot M79.671 ; Other myositis, left ankle and foot M60.872 ; Other myositis of right foot M60.871 ; Tinea unguium B35.1 ; Pain in right toe(s) M79.674 and Pain in left toe(s) M79.675 [facility] [place] [address] [place] [address] 08/30/2024 Sulema Black Other viral warts B07.8 ; Acute right ankle pain M25.571 ; Pain in left foot M79.672 ; Pain in right foot M79.671 ; Tinea unguium B35.1 ; Pain in right toe(s) M79.674 ; Pain in left toe(s) M79.675 ; Posterior tibial tendinitis of right lower extremity M76.821 ; Pes planus of right foot M21.41 and Pes planus of left foot M21.42 Assessments Encounter Date Diagnosis (ICD Code) Assessment Notes Treatment Notes Treatment Clinical Notes Section Notes 02/09/2024 Plantar fascial fibromatosis (ICD-10 - M72.2) 05/27/2024 Plantar fascial fibromatosis (ICD-10 - M72.2) 08/30/2024 Other viral warts (ICD-10 - B07.8) 08/30/2024 Acute right ankle pain (ICD-10 - M25.571) 08/30/2024 Pain in left foot (ICD-10 - M79.672) 05/27/2024 Other viral warts (ICD-10 - B07.8) 05/27/2024 Pain in left foot (ICD-10 - M79.672) 02/09/2024 Other viral warts (ICD-10 - B07.8) 02/09/2024 Pain in left foot (ICD-10 - M79.672) 02/09/2024 Pain in right foot (ICD-10 - M79.671) 05/27/2024 Pain in right foot (ICD-10 - M79.671) 08/30/2024 Pain in right foot (ICD-10 - M79.671) 08/30/2024 Tinea unguium (ICD-10 - B35.1) 05/27/2024 Other myositis, left ankle and foot (ICD-10 - M60.872) 02/09/2024 Other myositis, left ankle and foot (ICD-10 - M60.872) 02/09/2024 Other myositis of right foot (ICD-10 - M60.871) 05/27/2024 Other myositis of right foot (ICD-10 - M60.871) 08/30/2024 Pain in right toe(s) (ICD-10 - M79.674) 08/30/2024 Pain in left toe(s) (ICD-10 - M79.675) 05/27/2024 Tinea unguium (ICD-10 - B35.1) 02/09/2024 Tinea unguium (ICD-10 - B35.1) 02/09/2024 Pain in right toe(s) (ICD-10 - M79.674) 05/27/2024 Pain in right toe(s) (ICD-10 - M79.674) 08/30/2024 Posterior tibial tendinitis of right lower extremity (ICD-10 - M76.821) 08/30/2024 Pes planus of right foot (ICD-10 - M21.41) 05/27/2024 Pain in left toe(s) (ICD-10 - M79.675) 02/09/2024 Pain in left toe(s) (ICD-10 - M79.675) 08/30/2024 Pes planus of left foot (ICD-10 - M21.42) Plan Of Treatment Pending Test Test Name Order Date 32604-JUZKICV NAIL, 1-10/13/2023 75912-PXXAKNE NAIL, -5 02/09/2024 86392-ILOYIYB NAIL, 1-5 05/27/2024 40990-IYOUQGC NAIL, 1-5 08/30/2024 13692-Qyvp Destruction, 1-14 08/30/2024 92123-Sirq Destruction, 1-14 05/27/2024 52018-Stzy Destruction, 05-1802/09/2024 23898-Dtip Destruction, 05-1810/13/2023 49846-Cvry Destruction, 05-1809/17/2021 08433-Oujn Destruction, 05-1812/10/2021 61275-Pvgf Destruction, 05-1803/04/2022 63552-Liky Destruction, 05-1807/11/2022 96512-Gwpr Destruction, 05-1810/14/2022 26627-Eyge Destruction, 05-1802/13/2023 20080-Hize Destruction, 05-1806/16/2023 94316- Debride <25 sq cm 07/11/2022 16888 I&D ABSCESS- SIMPLE,SINGLE 022 Next Appt Details Provider Name:Sulema Pérez , 12/06/2024 01:30:00 PM, [address] [place] [address], [place], [address], Insurance Providers Payer Name Payer Address Payer Phone Subscriber Number Group Number Insured Name Patient Relationship to Insured Coverage Start Date Coverage End Date [facility] [employer] Claims [address] [place] [id number] [phone] [id number] Lara Felipe Self - patient is the insured Medical (General) History Medical History History ICD Code Depression Reflux ( GERD) Impaired Fasting Glucose osteoarthritis Hypothyroidism Hypercholesterolemia Restless leg syndrome Vitamin D deficiency Surgical History Surgery Date(Month/Year) thyroidectomy, complete
[2024-10-26 08:30] LABS: MANUAL DIFF FLAG NO
[2024-10-26 08:39] LABS: Basophils Absolute Auto 0.1 X10*3/uL (0.0-0.2); Basophils Percent Auto 0.9 % (0-2); Eosinophils Percent Auto 0.6 % (0-4); Hematocrit 38.8 % (37.0-47.0); Hemoglobin 12.7 g/dl (12.0-16.0); Lymphocytes Absolute Auto 1.8 X10*3/uL (1.2-4.9); Lymphocytes Percent Auto 33.6 % (20-40); Mean Corpuscular HGB Conc 32.7 g/dl (31.0-35.0); Mean Corpuscular Hemoglobin 31.2 pg (27.0-33.0); Mean Corpuscular Volume 95.3 fL (80.0-98.0); Mean Platelet Volume 9.9 fL (9.4-12.3); Monocytes Absolute Auto 0.5 X10*3/uL (0.1-1.2); Neutrophils Percent Auto 55.9 % (45-73); Platelet Count 284 X10*3/uL (160-400); Red Blood Count 4.07 X10*6/uL (4.20-5.50); White Blood Count 5.4 X10*3/uL (4.8-10.8)
[2024-10-26 09:17] LABS: Alanine Aminotransferase 23 U/L (0-31); Albumin Level 4.5 g/dL (3.5-5.0); Alkaline Phosphatase 89 U/L (39-117); Anion Gap 11 (12-20); Aspartate Amino Transferase 25 U/L (5-31); Bilirubin Total 0.4 mg/dL (0.0-1.0); Blood Urea Nitrogen 33 mg/dL (9-16); Calcium 9.3 mg/dL (8.4-10.2); Carbon Dioxide 28 mmol/L (22-29); Chloride 109 mmol/L (96-108); Cholesterol 212 mg/dL (<200); Estimated Glomerular Filt Rate > 60; Glucose Fasting 109 mg/dL (60-99); HDL Cholesterol 77 mg/dL (>40); LDL Cholesterol Calculated 110 mg/dL (<100); Potassium 3.9 mmol/L (3.3-5.1); Sodium 144 mmol/L (135-145); Total Protein 7.3 g/dL (6.5-8.0); Triglycerides 125 mg/dL (<150)
[2024-10-26 09:37] LABS: Free T4 (Free Thyroxine) 1.07 ng/dL (0.71-1.85); Thyroid Stimulating Hormone 3.53 uIU/mL (0.32-4.0); Vitamin D 25-OH Total 29.5 ng/mL (>30)
== END 2024-10-26 08:19 | disposition home or self-care (01) ==
LOC: HO.LAB 08:18
PROVIDERS: PCP Internal Medicine; Visit Provider Internal Medicine
DX: E03.9 Hypothyroidism, unspecified (principal); E78.00 Pure hypercholesterolemia, unspecified; E55.9 Vitamin D deficiency, unspecified; D64.9 Anemia, unspecified
CPT/HCPCS: 36415; 80053; 80061; 82306; 84439; 84443; 85025

== ENCOUNTER 2024-10-27 11:58 | Outpatient (REF) | payer OTHER, SELFPAY ==
[2024-10-27 12:17] LABS: Appearance Urine Cloudy; Color Urine Yellow; Glucose Urine UA Negative (Negative); Leukocyte Esterase Urine Negative (Negative); Nitrite Urine Negative (Negative); PH 5.5 (5.0-9.0); Specific Gravity - Urine >= 1.030 (1.005-1.025); Urine Blood Negative (Negative); Urine Ketones Trace mg/dL (Negative); Urine Protein Negative (Neg-Trace)
--- OUTSIDE RECORDS SUMMARY | 2024-10-27 14:11 | XMS_ITS | Patient Health Record ---
Author [facility] Address [address] [facility] [place] [address] Care Team Providers Care Sawmill Worker Name Role Phone Sebastian MACHADO, Juvencio Primary Care Provider Unaolga ilsharon Sulema Pérez Unavailable [phone] Allergies No Known Allergies Results Component Value [...] W/U Status Risk Notes Problem Plantar wart (29199136) Plantar wart (B07.0) Active confirmed Problem Plantar fascial fibromatosis (89936547) Plantar fascial fibromatosis (M72.2) Active confirmed Problem 874291103 Hammer toe of right foot (M20.41) Active confirmed Problem 426711426 Hammer toe of left foot (M20.42) Active confirmed Problem 049568729 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 confirmed Problem 846615255 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) Active confirmed Problem 842003111 Skin ulcer of right heel, limited to breakdown of skin (L97.411) Active confirmed Vital Signs Blood pressure diastolic 80 mm Hg 08/30/2024 Height 5ft4in in 08/30/2024 Blood pressure systolic 133 mm Hg 08/30/2024 Weight 167 lbs 08/30/2024 BMI 28.66 kg/m2 08/30/2024 Procedures Procedure Date Ordered Date Performed Result Body Sit e 54487-TDDWYLI NAIL, 1-02/09/2024 N/A 41409-Oqwr Destruction, -02/09/2024 N/A 85590-XKQUAHA NAIL, -05/27/2024 N/A 31881-Ckro Destruction, -05/27/2024 N/A 49158-CQZWJJO NAIL, -08/30/2024 N/A 78546-Jhku Destruction, -08/30/2024 N/A Encounters Encounter Location Date Provider Diagnosis [facility] [address] 02/09/2024 Sulema Black Plantar fascial fibromatosis M72.2 ; Other viral warts B07.8 ; Pain in left foot M79.672 ; Pain in right foot M79.671 ; Other myositis, left ankle and foot M60.872 ; Other myositis of right foot M60.871 ; Tinea unguium B35.1 ; Pain in right toe(s) M79.674 and Pain in left toe(s) M79.675 [facility] [place] [address] [place] [address] 05/27/2024 Sulema Black Plantar fascial fibromatosis M72.2 ; Other viral warts B07.8 ; Pain in left foot M79.672 ; Pain in right foot M79.671 ; Other myositis, left ankle and foot M60.872 ; Other myositis of right foot M60.871 ; Tinea unguium B35.1 ; Pain in right toe(s) M79.674 and Pain in left toe(s) M79.[address] [address] 08/30/2024 Sulema Black Other viral warts B07.8 [...] Treatment Pending Test Test Name Order Date 67362-XJXFAHZ NAIL, 1-5 10/13/2023 08380-WTHGRGR NAIL, 1-5 02/09/2024 52697-UNLKXEE NAIL, 1-5 05/27/2024 80060-APFQHJX NAIL, 1-5 08/30/2024 09996-Iaej Destruction, 1-08/30/2024 17923-Ozva Destruction, 05-1805/27/2024 60213-Hcvz Destruction, 05-1802/09/2024 91533-Zaef Destruction, 05-1810/13/2023 19016-Oozw Destruction, 05-1809/17/2021 21766-Xyik Destruction, 05-1812/10/2021 29357-Hjhh Destruction, 05-1803/04/2022 48882-Uxct Destruction, 05-1807/11/2022 45719-Wzsj Destruction, 05-1810/14/2022 49720-Bkxa Destruction, 05-1802/13/2023 07568-Lmbi Destruction, 05-1806/16/2023 45995- Debride <25 sq cm 07/11/2022 21929 I&D ABSCESS- SIMPLE,SINGLE 022 Next Appt Details Provider Name:Sulema Pérez , 12/06/2024 01:30:00 PM, [address] [place], [address], Insurance Providers Payer Name Payer Address Payer Phone Subscriber Number Group Number Insured Name Patient Relationship to Insured Coverage Start Date Coverage End Date [facility] [employer] S[employer] Claims [address] [place] [phone] [id number] Lara Felipe Self - patient is the insured Medical (General) History Medical History History ICD Code Depression Reflux ( GERD) Impaired Fasting Glucose osteoarthritis Hypothyroidism Hypercholesterolemia Restless leg syndrome Vitamin D deficiency Surgical History Surgery Date(Month/Year) thyroidectomy, complete
== END 2024-10-27 11:59 | disposition home or self-care (01) ==
LOC: HO.LNP 11:58
PROVIDERS: Visit Provider Internal Medicine
DX: R30.0 Dysuria (principal)
CPT/HCPCS: 81003

== ENCOUNTER 2024-11-03 13:05 | Outpatient (AMB) | payer OTHER, SELFPAY ==
[2024-11-03 13:14] VITALS: BP 100/80; PULSE 98; O2SAT 95; BMI 28.6
--- NOTE | 2024-11-03 13:14 | A.OFFPC_ITS ---
Vital Signs 11/03/24 13:14 Height 5 ft 4 in Weight 166 lb 6 oz BMI 28.6 BP 100/80 Blood Pressure Location Rt femoral Position Sitting Pulse 98 Pulse Source Pulse Oximeter Pulse Oximetry (%) 95 Oxygen Delivery Method Room Air Intake Visit Reasons: hyperlipidemia, RLS, hypothyroidism Polyethylene Combiner Required: No Accompanied by: Self / Same As Patient Allergies No Known Allergies Allergy (Verified 11/03/24 13:47) Medication List - Last Reconciled 11/03/24 by Juvencio Cortes MD atorvastatin 10 mg PO BEDTIME 90 days cholecalciferol (vitamin D3) 2,000 units PO DAILY 90 days levothyroxine 137 mcg PO DAILY 90 days meloxicam 15 mg PO DAILY multivitamin (Multiple Vitamins tablet) 1 tab PO DAILY 90 days pramipexole 1.5 mg PO BEDTIME Tobacco use date assessed: 11/03/24 Dental Screening Dental Screen Date: 11/03/24 Did you have a dental visit in the last 12 months?: Yes Did you have a dental problem in the last 6 months where you did not have access to dental care?: No Was dental information given to patient?: Patient has dentist HPI hyperlipidemia, RLS, hypothyroidism HPI Details Patient comes in today for her follow-up visit States that she feels okay She is tolerating her Atorvastatin so far without any problems She denies any headaches or dizziness Denies any chest pains, no shortness of breath No nausea/vomiting, no abdominal pain No change in bowel habits noted Needs a few of her Rx refilled today She had her follow-up labs done last week - to discuss her results [facility] Medical History Intellectual disability Osteoarthritis of left shoulder Overweight (BMI 25.0-29.9) Depression Restless leg syndrome GERD without esophagitis Impaired fasting glucose Pure hypercholesterolemia Post-surgical hypothyroidism Vitamin D deficiency Surgical History Hx of thyroidectomy No pertinent past surgical history Family History Father Diabetes Mother Diabetes Hypertension Social History Housing: Apartment Alcohol intake: never Patient Tobacco Use Status: Never used Tobacco e-Cigarette/Vaping Use: Never Used Second Hand Smoke Exposure: No service: No Current occupational status: disabled Cognitive needs: No Hearing needs: No Vision needs: No Questionnaire PHQ-9 Over the last 2 weeks, how often have you been bothered by any of the following problems? 1. Little interest or pleasure in doing things: not at all 2. Feeling down, depressed, or hopeless: not at all 3. Trouble falling or staying asleep, or sleeping too much: not at all 4. Feeling tired or having little energy: not at all 5. Poor appetite or overeating: not at all 6. Feeling bad about yourself - or that you are a failure or have let yourself or your family down: not at all 7. Trouble concentrating on things, such as reading the newspaper or watching television: not at all 8. Moving or speaking so slowly that other people could have noticed. Or the opposite - being so fidgety or restless that you have been moving around a lot more than usual: not at all 9. Thoughts that you would be better off or of hurting yourself in some way: not at all Total score: 0 Depression Screening Interpretation: Negative Depression Screening Done: Yes 69905 - PHQ-9 Billing: Yes Source: Developed by Drs. Xavi Chan, Shelby Arenas, Christopher Gaspar and colleagues, with an educational samuel from [employer]. Thrive Questionnaire Date Thrive assessed: 11/03/24 I am a: Patient What is your living situation today?: I have a steady place to live Within the past 12 months, did the food you bought not last and you didn't have the money to get more?: Never true Within the past 12 months, did you worry whether your food would run out before you got money to buy more?: Never true Do you have trouble paying for medicines?: No Do you have trouble getting transportation to medical appointments?: No Do you have trouble paying your heating and electricity bill?: No Do you have trouble taking care of your child, family member or friend?: No Do you have trouble with day-to-day activities such as bathing, preparing meals, shopping, managing finances, etc.?: No Are you currently unemployed and looking for a job?: No Are you interested in more education?: No Please select the resources that you would like help with: None Currently or been in a relationship where the following occur: No concerns reported THRIVE Score: 0 AUDIT C Alcohol Use Questionnaire (AUDIT-C) 1. How often do you have a drink containing alcohol?: Never 3. How often do you have six or more drinks on one occasion?: Never Total Score: 0 Score Reviewed/Action Taken: Yes ARLEN-7 AMB Questionnaire ARLEN-7 Date ARLEN - 7 assessed: 11/03/24 Feeling nervous, anxious, or on edge: 0 = Not at all Not being able to stop or control worryin = Not at all Worrying too much about different things: 0 = Not at all Trouble relaxin = Not at all Being so restless that it is hard to sit still: 0 = Not at all Becoming easily annoyed or irritable: 0 = Not at all Feeling afraid as if something awful might happen: 0 = Not at all Total ARLEN-7 score (0-4 normal; 5-9 mild; 10-14 moderate; 15-21 severe): 0 Source: Developed by Drs. Xavi Chan, Shelby Arenas, Christopher Gaspar and colleagues, with an educational samuel from [employer]. Review of Systems Const Denies chills, Denies fatigue, Denies fever(s) and Denies headache(s) ENT Denies dysphagia, Denies dizziness, Denies otalgia, Denies headache(s), Denies neck pain, Denies odynophagia and Denies sore throat Card Denies chest pain, Denies palpitations and Denies dyspnea Resp Denies chest congestion, Denies cough and Denies dyspnea GI Denies abdominal pain, Denies constipation, Denies dysphagia, Denies heartburn, Denies diarrhea, Denies nausea, Denies odynophagia and Denies vomiting Denies difficulty voiding, Denies dysuria and Denies urinary urgency Musc Denies back pain and Denies neck pain Skin/Breast Denies rash Neuro Denies dizziness and Denies headache(s) Endo Denies fatigue and Denies palpitations Physical exam (Primary Care) Vital Signs: Last Vital Signs Pulse 98 11/03/24 13:14 BP 100/80 11/03/24 13:14 Pulse Ox 95 11/03/24 13:14 Oxygen Delivery Method Room Air 11/03/24 13:14 BMI result Body Mass Index 28.6 Tobacco/Smoking Status: Tobacco use Status Tobacco use date assessed 11/03/24 11/03/24 13:22 Patient Tobacco Use Status Never used Tobacco 11/03/24 13:22 e-Cigarette/Vaping Use Never Used 11/03/24 13:22 PHQ-9: PHQ-9 Score PHQ-9: Total score 0 11/03/24 13:22 Depression Screening Interpretation: Negative Thrive Assessment: Date of Thrive Assessment Date Thrive assessed 11/03/24 11/03/24 13:22 Currently or been in a relationship where the following occur: No concerns reported Const General: no acute distress and alert HENMT Ears: TM's normal bilaterally and EAC's normal Throat: Yes posterior oropharynx normal and Yes tonsils normal (no TP congestion) Neck Neck: Yes supple and No lymphadenopathy Thyroid: Thyroid normal Resp Auscultation: clear to auscultation bilaterally, no rales and no wheezes Cardio Rate: regular rate Rhythm: regular rhythm Heart sounds: no murmurs GI Palpation (GI): Soft to palpation and nontender Auscultation: normal bowel sounds General: Yes no CVA tenderness Back/Spine/Pelvis Back: no CVA tenderness Thoracic/Lumbar Spine: No lumbar spinal tenderness Skin Rashes: no rashes Extrem General: Yes no clubbing, cyanosis or edema Left upper extremity: shoulder/upper arm Details: tenderness (mild) Location: of the A-C joint and normal ROM Results Reviewed Results Reviewed: Laboratory Tests 10/26/24 10/27/24 08:29 07:00 WBC 5.4 Hgb 12.7 Hct 38.8 Plt Count 284 Sodium 144 Potassium 3.9 Creatinine 0.90 Estimated GFR > 60 Fasting Glucose 109 H Calcium 9.3 AST 25 ALT 23 Triglycerides 125 Cholesterol 212 H LDL Cholesterol, Calc 110 H HDL Cholesterol 77 25-OH Vitamin D Total 29.5 L TSH 3.53 Free T4 1.07 Ur Specific [place] >= 1.030 H Urine Protein Negative Urine Glucose (UA) Negative Urine Blood Negative Urine Nitrite Negative Ur Leukocyte Esterase Negative Coding Level of Care Code Est Pt Level 4 (47862) Complex EM visit Add On G2211 Diagnoses Pure hypercholesterolemia E78.00 Post-surgical hypothyroidism E89.0 Impaired fasting glucose R73.01 GERD without esophagitis K21.9 Vitamin D deficiency E55.9 Osteoarthritis of left shoulder, unspecified osteoarthritis type M19.012 Osteoarthritis type: unspecified Restless leg syndrome G25.81 Intellectual disability F79 Episode of recurrent major depressive disorder, unspecified depression episode severity F33.9 Depression Type: major depressive disorder Major depression recurrence: recurrent Active/Remission status: currently active Major depression episode severity: unspecified Overweight (BMI 25.0-29.9) E66.3 Additional Codes PHQ-9 - 38119 - PHQ-9 Billing: Yes ([id number]) Assessment & Plan Assessment & Plan (1) Pure hypercholesterolemia: Code(s): E78.00 - Pure hypercholesterolemia, unspecified Category: Medical Plan: Results of her labs done last week reviewed and discussed with patient - her cholesterol numbers have improved significantly from previous Reinforced low cholesterol diet Continue Atorvastatin 10 mg QD She would like to continue on her current dose and does not want to have it increased further at this time Will recheck her labs and fasting lipids in 4 months for follow-up (2) Post-surgical hypothyroidism: Code(s): E89.0 - Postprocedural hypothyroidism Category: Medical Plan: Her TFTs are normal on her recent labs Continue Levothyroxine 137 mcg QD Patient used to see Dr. Keen for endocrinology follow up but has not been back to see him in a couple of years now - was reportedly told that her PCP can just continue to manage her thyroid and to see them again on an as-needed basis Will have her recheck her TFTs and other labs in 4 months for follow up (3) Impaired fasting glucose: Code(s): R73.01 - Impaired fasting glucose Category: Medical Plan: Patient's FBS was slightly elevated at 109 mg/dL on her recent labs; her HgbA1c was normal at 5.8% when previously checked Reinforced low calorie/low carb diet; exercise as tolerated (4) GERD without esophagitis: Code(s): K21.9 - Gastro-esophageal reflux disease without esophagitis Category: Medical Plan: Dietary restrictions reinforced (5) Vitamin D deficiency: Code(s): E55.9 - Vitamin D deficiency, unspecified Category: Medical Plan: Continue Vitamin D3 2000 units QD (6) Osteoarthritis of left shoulder: Code(s): M19.012 - Primary osteoarthritis, left shoulder Category: Medical Qualifiers: Osteoarthritis type: unspecified Qualified Code(s): M19.012 - Primary osteoarthritis, left shoulder Plan: X-rays of the left shoulder done a couple of years ago revealed (+) mild OA over the left AC joint Continue Meloxicam 15 mg QD with food PRN for pain Have recommended physical therapy if her shoulder continues to bother her - patient will call for referral when needed (7) Restless leg syndrome: Code(s): G25.81 - Restless legs syndrome Category: Medical Plan: Continue Pramipexole 1.5 mg Q HS - Rx refilled (8) Intellectual disability: Comment: Patient is intellectually handicapped/challenged - reportedly had meningitis as an and spent months in the ICU Family states that she never did get to complete school (only finished 3rd grade) and is on permanent disability as a result of this Code(s): F79 - Unspecified intellectual disabilities Category: Medical Plan: Patient's sister is her HCP and helps her make decisions regarding her health and medical issues (9) Depression: Code(s): F32.9 - Major depressive disorder, single episode, unspecified Category: Medical Qualifiers: Depression Type: major depressive disorder Major depression recurrence: recurrent Active/Remission status: currently active Major depression episode severity: unspecified Qualified Code(s): F33.9 - Major depressive disorder, recurrent, unspecified Plan: She was on Citalopram 10 mg QD in the past but patient came off her Rx on her own a couple of years ago and reportedly has not had any increase in her depression since States that she will call for Rx if her depression starts to flare up again (10) Overweight (BMI 25.0-29.9): Code(s): E66.3 - Overweight Category: Medical Plan: Reinforced diet/exercise as tolerated/lose weight Plan Follow up in 4 months Orders: Orders Lipid Panel 4 Months E78.00 - Pure hypercholesterolemia, unspecified Complete Blood Count Auto Diff 4 Months D64.9 - Anemia, unspecified UA CC w/rflx Micro + Cult 4 Months R30.0 - Dysuria Thyroid Stimulating Hormone 4 Months E03.9 - Hypothyroidism, unspecified Comprehensive [place]. Panel Fast 4 Months E78.00 - Pure hypercholesterolemia, unspecified Free T4 (Free Thyroxine) 4 Months E03.9 - Hypothyroidism, unspecified Vitamin D 25-OH Total 4 Months E55.9 - Vitamin D deficiency, unspecified Hemoglobin A1c 4 Months R73.01 - Impaired fasting glucose Medications: Refilled levothyroxine To be taken on an empty stomach 1st thing in the morning, with a glass of water; do not eat or drink anything else for the next 30 minutes 137 mcg PO DA LAUREN 90 tabs 3RF 90 days E89.0 - Postprocedural hypothyroidism atorvastatin 10 mg PO BEDTIME 90 tabs 1RF 90 days cholecalciferol (vitamin D3) 2,000 units PO DAILY 90 caps 3RF 90 days E55.9 - Vitamin D deficiency, unspecified pramipexole 1.5 mg PO BEDTIME 90 tabs 1RF G25.81 - Restless legs syndrome
--- OUTSIDE RECORDS SUMMARY | 2024-11-03 13:41 | XMS_ITS | Patient Health Record ---
[facility] [place] Address [address] [place] [address] Care Team Providers Care Educational Consultant Name Role Phone Sebastian MACHADO, Juvencio Primary Care Provider Matt griffin Sulema Pérez Unavailable [phone] Allergies No Known Allergies Results Component Value Reference Range Notes X ray : Ankle, right 3V Reviewed date:08/30/2024 03:15:15 PM Interpretation:See Examination above Performing Lab: Notes/Report: See Examination above Reason For Referral No Information Medications Medication SIG (Take, Route, Frequency, Duration) Notes Start Date End Date Status Medrol 4 MG as directed Orally daily; Duration: 6 days 08/30/2024 Active Atorvastatin Calcium 10 MG 1 tablet Oral ly Once a day; Duration: 30 day(s) Not-Taking Atorvastatin Calcium Not-Taking Ciclopirox Olamine 0.77 % 1 application to affected area Externally to feet Twice a day; Duration: 30 days Not-Taking Vitamin D3 50 MCG (1999 UT) 1 capsule Orally Once a day; Duration: 30 day(s) Active Pramipexole Dihydrochloride 1.5 MG 1 tablet Orally Once a day; Duration: 30 day(s) Active Levothyroxine Sodium 112 MCG 1 tablet in the morning on an empty stomach Orally Once a day; Duration: 30 day(s) Active Social History Tobacco Use: [...] W/U Status Risk Notes Problem Plantar wart (48904134) Plantar wart (B07.0) Active confirmed Problem Plantar fascial fibromatosis (88860468) Plantar fascial fibromatosis (M72.2) Active confirmed Problem Acquired hammer toe of right foot (083498847603083 5) Hammer toe of right foot (M20.41) Active confirmed Problem Acquired hammer toe of left foot (527176673799542 3) Hammer toe of left foot (M20.42) Active confirmed Problem 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 confirmed Problem 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) Active confirmed Problem Ulcer of right heel (disorder) (632429668637459 02) Skin ulcer of right heel, limited to breakdown of skin (L97.411) Active confirmed Vital Signs Blood pressure diastolic 80 mm Hg 08/30/2024 Height 5ft4in in 08/30/2024 Blood pressure systolic 133 mm Hg 08/30/2024 Weight 167 lbs 08/30/2024 BMI 28.66 kg/m2 08/30/2024 Procedures Procedure Date Ordered Date Performed Result Body Sit e 28218-[id number] NAIL, -02/09/2024 N/A 27618-Kdxr Destruction, 05-1802/09/2024 N/A 35421-DHBXJWX NAIL, 05-0905/27/2024 N/A 28620-Oodj Destruction, 05-1805/27/2024 N/A 76234-BIMWNZN NAIL, -08/30/2024 N/A 03473-Varh Destruction, -08/30/2024 N/A Encounters Encounter Location Date Provider Diagnosis [facility] [address] [place] [address] 02/09/2024 Sulema Black Plantar fascial fibromatosis M72.2 ; Other viral warts B07.8 ; Pain in left foot M79.672 ; Pain in right foot M79.671 ; Other myositis, left ankle and foot M60.872 ; Other myositis of right foot M60.871 ; Tinea unguium B35.1 ; Pain in right toe(s) M79.674 and Pain in left toe(s) M79.[address] [address] 05/27/2024 Sulema Black Plantar fascial fibromatosis M72.2 ; Other viral warts B07.8 ; Pain in left foot M79.672 ; Pain in right foot M79.671 ; Other myositis, left ankle and foot M60.872 ; Other myositis of right foot M60.871 ; Tinea unguium B35.1 ; Pain in right toe(s) M79.674 and Pain in left toe(s) M79.[address] [address] 08/30/2024 Sulema Black Other viral warts B07.8 [...] Treatment Pending Test Test Name Order Date 60009-NVRQLCP NAIL, 1-10/13/2023 16951-QWTGRFO NAIL, 1-5 02/09/2024 30489-MKAPGRC NAIL, -05/27/2024 66714-TLFJQQK NAIL, -08/30/2024 43873-Lwue Destruction, -08/30/2024 90918-Uyxs Destruction, -05/27/2024 18959-Itji Destruction, 05-1802/09/2024 84620-Koff Destruction, 05-1810/13/2023 73602-Rixo Destruction, 05-1809/17/2021 39389-Kinu Destruction, 05-1812/10/2021 29822-Jusd Destruction, 05-1803/04/2022 83084-Soaa Destruction, 05-1807/11/2022 99894-Buns Destruction, 05-1810/14/2022 39043-Tfjc Destruction, 05-1802/13/2023 33590-Aich Destruction, 05-1806/16/2023 31332- Debride <25 sq cm 07/11/2022 13290 I&D ABSCESS- SIMPLE,SINGLE 022 Next Appt Details Provider Name:Sulema Pérez , 12/06/2024 01:30:00 PM, [address] [facility], [place], [address], Insurance Providers Payer Name Payer Address Payer Phone Subscriber Number Group Number Insured Name Patient Relationship to Insured Coverage Start Date Coverage End Date [facility] [employer] Claims [address] [place] [id number] [phone] [id number] Lara Felipe Self - patient is the insured Medical (General) History Medical History History ICD Code Depression Reflux ( GERD) Impaired Fasting Glucose osteoarthritis Hypothyroidism Hypercholesterolemia Restless leg syndrome Vitamin D deficiency Surgical History Surgery Date(Month/Year) thyroidectomy, complete
--- OUTSIDE RECORDS SUMMARY | 2024-11-03 13:41 | XMS_ITS | Patient Health Record ---
Author Organization [facility] Address [address] [place] [address] Care Team Providers Care Computer Systems Engineer Name Role Phone Terrell Cortes MDh Primary Care Provider Xavi Mulligan Unavailable [phone] Reason For Referral No Information Medications Medication SIG (Take, Route, Frequency, Duration) Notes Start Date End Date Status Colyte w Flavor Packs 240 GM as directed Orally as directed for 1 day(s) 01/01/2015 Active Pramipexole Dihydrochloride 0.25 MG 1 TABLET ONCE A DAY AT BEDTIME ORALLY 30 DAYS Oral for 30 Active Vitamin D3 2000 UNIT TAKE ONE CAPSULE BY MOUTH DAILY Oral for 30 Active Levothyroxine Sodium 125 MCG TAKE 1 TABL ET BY MOUTH EVERY MORNING ON EMPTY STOMACH Oral for 90 Active Problems Problem Type SNOMED Code ICD Code Onset Dates Problem Status W/U Status Risk Notes Problem Pre-surgery evaluation (115144175) Other specified pre-operative examination (V72.83) Active confirmed Problem Colon cancer screening (975898449) Colon cancer screening (V76.51) Active confirmed Plan Of Treatment Future Test Test Name Order Date COLONOSCOPY 12/30/2014 Insurance Providers Payer Name Payer Address Payer Phone Subscriber Number Group Number Insured Name Patient Relationship to Insured Coverage Start Date Coverage End Date [place] [address] [place] [address] [phone] [id number] COURTNEY EDWARDS Self - patient is the insured MEDICAID OF [facility] [address] [place] [address] [id number] COURTNEY EDWARDS Self - patient is the insured Medical (General) History Medical History History ICD Code Denies [place],DM,CVA,Lung disease,renal dise ase 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
== END 2024-11-03 13:55 | disposition home or self-care (01) ==
LOC: HO.HMCH 13:05
PROVIDERS: PCP Internal Medicine; Visit Provider Internal Medicine
DX: E78.00 Pure hypercholesterolemia, unspecified (principal); E89.0 Postprocedural hypothyroidism; R73.01 Impaired fasting glucose; K21.9 Gastro-esophageal reflux disease without esophagitis; E55.9 Vitamin D deficiency, unspecified; M19.012 Primary osteoarthritis, left shoulder; G25.81 Restless legs syndrome; F79 Unspecified intellectual disabilities; F33.9 Major depressive disorder, recurrent, unspecified; E66.3 Overweight

== ENCOUNTER → 2024-11-03 13:05 | Outpatient (BNVA) | payer OTHER, SELFPAY | PROVIDERS: PCP Internal Medicine; Visit Provider Internal Medicine | DX: E89.0 Postprocedural hypothyroidism (principal); E78.00 Pure hypercholesterolemia, unspecified; G25.81 Restless legs syndrome; R73.01 Impaired fasting glucose; K21.9 Gastro-esophageal reflux disease without esophagitis; E55.9 Vitamin D deficiency, unspecified; M19.012 Primary osteoarthritis, left shoulder; F79 Unspecified intellectual disabilities; F33.9 Major depressive disorder, recurrent, unspecified; E66.3 Overweight; Z68.28 Body mass index [BMI] 28.0-28.9, adult | CPT/HCPCS: 96127; 99212 ==

== ENCOUNTER 2025-03-01 08:27 | Outpatient (REF) | payer OTHER, SELFPAY ==
[2025-03-01 08:43] LABS: MANUAL DIFF FLAG NO
[2025-03-01 08:51] LABS: Hematocrit 40.5 % (37.0-47.0); Hemoglobin 13.3 g/dl (12.0-16.0); Imm Gran Abs Auto 0.00 X10*3/uL (0.00-0.03); Imm Gran Pct Auto 0.0 % (0.0-0.4); Lymphocytes Absolute Auto 1.6 X10*3/uL (1.2-4.9); Mean Corpuscular HGB Conc 32.8 g/dl (31.0-35.0); Mean Corpuscular Hemoglobin 31.3 pg (27.0-33.0); Mean Corpuscular Volume 95.3 fL (80.0-98.0); NRBC Abs Auto 0.000 X10*3/uL (0.0-0.012); NRBC Pct Auto 0.0 /100WBC (0.0-0.2); Platelet Count 309 X10*3/uL (160-400); Red Blood Count 4.25 X10*6/uL (4.20-5.50); White Blood Count 4.5 X10*3/uL (4.8-10.8)
--- OUTSIDE RECORDS SUMMARY | 2025-03-01 09:05 | XMS_ITS | Patient Health Record ---
Author Organization [facility] rochelle Durand Address [address] [facility] [place] [address] Care Team Providers Care Customer Service Clerk Name Role Phone Sebastian MACHADO, Juvencio Primary Care Provider Unaolga ilsharon Black Sulema Unavailable [phone] Allergies No Known Allergies Results Component Value Reference Range Notes X ray : Ankle, right 3V Reviewed date:08/30/2024 03:15:15 PM Interpretation:See Examination above Performing Lab: Notes/Report: See Examination above Reason For Referral No Information Medications Medication SIG (Take, Route, Frequency, Duration) Notes Start Date End Date Status Vitamin D3 50 MCG (1999) 1 capsule Orally Once a day; Duration: 30 day(s) Active Levothyroxine Sodium 112 MCG 1 tablet in the morning on an empty stomach Orally Once a day; Duration: 30 day(s) Active Pramipexole Dihydrochloride 1.5 MG 1 tablet Orally Once a day; Duration: 30 day(s) Active Atorvastatin Calcium 10 MG 1 tablet Oral ly Once a day; Duration: 30 day(s) Not-Taking Ciclopirox Olamine 0.77 % 1 application to affected area Externally to feet Twice a day; Duration: 30 days Not-Taking Atorvastatin Calcium Not-Taking Medrol 4 MG as directed Orally daily; Duration: 6 days 08/30/2024 Active Immunizations Vaccine Route Administration Date Status Comme nts Influenza Unknown 01/04/2024 Administered Social History Tobacco Use: Social History Observation [...] Are you an other tobacco user? No AUDIT-C (Standard) Question Answer Notes Did you have a drink containing alcohol in the p ast year? No Points 0 Interpretation Negative Problems Problem Type SNOMED Code ICD Code Onset Dates Problem Status W/U Status Risk Notes Problem Viral wart (65826415) Other viral warts (B07.8) Active confirmed Problem Tendinitis of right posterior tibial tendon (408572400902 102) Posterior tibial tendinitis of right lower extremity (M76.821) Active confirmed Response to treatment - Improvement Vital Signs Blood pressure diastolic 80 mm Hg 12/06/2024 Height 5ft4in in 12/06/2024 Blood pressure systolic 133 mm Hg 12/06/2024 Weight 166 lbs 12/06/2024 BMI 28.49 kg/m2 12/06/2024 Procedures Procedure Date Ordered Date Performed Result Body Sit e 91090-AGSEAWV NAIL, -05/27/2024 N/A 85387-Ysoy Destruction, -05/27/2024 N/A 88633-BPBNQTZ NAIL, -08/30/2024 N/A 66185-Plzc Destruction, -08/30/2024 N/A 92277-UDHPBHQ NAIL, -12/06/2024 N/A 88226-Dfjp Destruction, -12/06/2024 N/A Encounters Encounter [facility] Date [facility] [address] [address] [facility]/27/2024 Sulema Black Plantar fascial fibromatosis M72.2 ; Other viral warts B07.8 ; Pain in left foot M79.672 ; Pain in right foot M79.671 ; Other myositis, left ankle and foot M60.872 ; Other myositis of right foot M60.871 ; Tinea unguium B35.1 ; Pain in right toe(s) M79.674 and Pain in left toe(s) M79.[address] [facility] [address] 08/30/2024 Sulema Black Other viral warts B07.8 [...] and Pes planus of left foot M21.42 [facility] [address] [address] 12/06/2024 Sulema Pérez Other viral warts B07.8 ; Acute right [...] Acute right ankle pain (ICD-10 - M25.571) 12/06/2024 Other viral warts (ICD-10 - B07.8) 12/06/2024 Acute right ankle pain (ICD-10 - M25.571) 12/06/2024 Pain in left foot (ICD-10 - M79.672) 08/30/2024 Pain in left foot (ICD-10 - M79.672) 05/27/2024 Other viral warts (ICD-10 - B07.8) 05/27/2024 Pain in left foot (ICD-10 - M79.672) 05/27/2024 Pain in right foot (ICD-10 - M79.671) 08/30/2024 Pain in right foot (ICD-10 - M79.671) 12/06/2024 Pain in right foot (ICD-10 - M79.671) 12/06/2024 Tinea unguium (ICD-10 - B35.1) 08/30/2024 Tinea unguium (ICD-10 - B35.1) 05/27/2024 Other myositis, left ankle and foot (ICD-10 - M60.872) 05/27/2024 Other myositis of right foot (ICD-10 - M60.871) 08/30/2024 Pain in right toe(s) (ICD-10 - M79.674) 12/06/2024 Pain in right toe(s) (ICD-10 - M79.674) 12/06/2024 Pain in left toe(s) (ICD-10 - M79.675) 08/30/2024 Pain in left toe(s) (ICD-10 - M79.675) 05/27/2024 Tinea unguium (ICD-10 - B35.1) 05/27/2024 Pain in right toe(s) (ICD-10 - M79.674) 08/30/2024 Posterior tibial tendinitis of right lower extremity (ICD-10 - M76.821) 12/06/2024 Posterior tibial tendinitis of right lower extremity (ICD-10 - M76.821) Response to treatment - Improvement 12/06/2024 Pes planus of right foot (ICD-10 - M21.41) 08/30/2024 Pes planus of right foot (ICD-10 - M21.41) 05/27/2024 Pain in left toe(s) (ICD-10 - M79.675) 08/30/2024 Pes planus of left foot (ICD-10 - M21.42) 12/06/2024 Pes planus of left foot (ICD-10 - M21.42) Plan Of Treatment Pending Test Test Name Order Date 46447-QNXJPWQ NAIL, 1-10/13/2023 26974-WLUAMYO NAIL, 1-5 02/09/2024 29051-TPEQLZP NAIL, 1-5 05/27/2024 79740-ZBOZWPY NAIL, 1-5 08/30/2024 32657-AXTWQNN NAIL, -5 12/06/2024 05908-Ddve Destruction, -14 12/06/2024 19841-Xvov Destruction, -14 08/30/2024 46484-Ngai Destruction, -05/27/2024 47563-Hhdd Destruction, -02/09/2024 17282-Jajp Destruction, 05-1810/13/2023 44382-Dirm Destruction, 05-1809/17/2021 45377-Zwks Destruction, 05-1812/10/2021 47997-Fipu Destruction, -03/04/2022 02312-Oxxx Destruction, 05-1807/11/2022 86237-Zfbx Destruction, 05-1810/14/2022 87173-Lahi Destruction, 05-1802/13/2023 69448-Wejd Destruction, 05-1806/16/2023 42586- Debride <25 sq cm 07/11/2022 51146 I&D ABSCESS- SIMPLE,SINGLE 022 Next Appt Details Provider Name:Sulema Pérez , 03/14/2025 01:30:00 PM, [address] [facility], [place], [address], Insurance Providers Payer Name Payer Address Payer Phone Subscriber Number Group Number Insured Name Patient Relationship to Insured Coverage Start Date Coverage End Date 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
--- OUTSIDE RECORDS SUMMARY | 2025-03-01 09:06 | XMS_ITS | Patient Health Record ---
Author Organization [facility] Address [address] [place] [address] Care Team Providers Care Green Ware Caster Name Role Phone Juvencio Cortes MD Primary Care Provider Xavi Mulligan Unavailable [phone] Reason For Referral No Information Medications Medication SIG (Take, Route, Frequency, Duration) Notes Start Date End Date Status Colyte w Flavor Packs 240 GM as directed Orally as directed; Duration: 1 day(s) 01/01/2015 Active Pramipexole Dihydrochloride 0.25 MG 1 TABLET ONCE A DAY AT BEDTIME ORALLY 30 DAYS Oral; Duration: 30 Active Vitamin D3 2000 UNIT TAKE ONE CAPSULE BY MOUTH DAILY Oral; Duration: 30 Active Levothyroxine Sodium 125 MCG TAKE 1 TABL ET BY MOUTH EVERY MORNING ON EMPTY STOMACH Oral; Duration: 90 Active Problems Problem Type SNOMED Code ICD Code Onset Dates Problem Status W/U Status Risk Notes Problem Pre-surgery evaluation (958791236) Other specified pre-operative examination (V72.83) Active confirmed Problem Colon cancer screening (772597363) Colon cancer screening (V76.51) Active confirmed Plan Of Treatment Future Test Test Name Order Date COLONOSCOPY 12/30/2014 Insurance Providers Payer Name Payer Address Payer Phone Subscriber Number Group Number Insured Name Patient Relationship to Insured Coverage Start Date Coverage End Date MEDICARE OF [place] [address] [place]ENDEZ [id number] COURTNEY EDWARDS Self - patient is the insured [facility] [address] [place] [address] [id number] COURTNEY EDWARDS Self - patient is the insured Medical (General) History Medical History History ICD Code Denies AR,DM,CVA,Lung disease,renal dise ase 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
[2025-03-01 09:25] LABS: Appearance Urine Clear; Glucose Urine UA Negative (Negative); PH 6.0 (5.0-9.0); Specific Gravity - Urine 1.020 (1.005-1.025)
[2025-03-01 09:29] LABS: Alanine Aminotransferase 21 U/L (0-31); Albumin Level 4.5 g/dL (3.5-5.0); Alkaline Phosphatase 100 U/L (39-117); Anion Gap 11 (12-20); Aspartate Amino Transferase 25 U/L (5-31); Blood Urea Nitrogen 23 mg/dL (9-16); Calcium 9.6 mg/dL (8.4-10.2); Carbon Dioxide 31 mmol/L (22-29); Chloride 105 mmol/L (96-108); Cholesterol 288 mg/dL (<200); Estimated Glomerular Filt Rate > 60; HDL Cholesterol 74 mg/dL (>40); Potassium 4.3 mmol/L (3.3-5.1); Sodium 143 mmol/L (135-145); Total Protein 7.4 g/dL (6.5-8.0); Triglycerides 165 mg/dL (<150)
[2025-03-01 09:50] LABS: Free T4 (Free Thyroxine) 1.07 ng/dL (0.71-1.85); Thyroid Stimulating Hormone 14.34 uIU/mL (0.32-4.0)
== END 2025-03-01 08:28 | disposition home or self-care (01) ==
LOC: HO.LAB 08:27
PROVIDERS: PCP Internal Medicine; Visit Provider Internal Medicine
DX: R30.0 Dysuria (principal); R73.01 Impaired fasting glucose; E78.00 Pure hypercholesterolemia, unspecified; E03.9 Hypothyroidism, unspecified; D64.9 Anemia, unspecified; E55.9 Vitamin D deficiency, unspecified
CPT/HCPCS: 36415; 80053; 80061; 81003; 82306; 83036; 84439; 84443; 85025

== ENCOUNTER 2025-03-08 12:37 | Outpatient (AMB) | payer OTHER, SELFPAY ==
[2025-03-08 12:45] VITALS: BP 118/76; PULSE 79; O2SAT 96; BMI 28.2
--- NOTE | 2025-03-08 12:45 | A.OFFPC_ITS ---
Vital Signs 03/08/25 12:45 Height 5 ft 4 in Weight 164 lb 2 oz BMI 28.2 BP 118/76 Blood Pressure Location Lt brachial Position Sitting Pulse 79 Pulse Source Pulse Oximeter Pulse Oximetry (%) 96 Oxygen Delivery Method Room Air Intake Visit Reasons: 4 months Wood Heel Back Liner Required: No Accompanied by: Self / Same As Patient Allergies No Known Allergies Allergy (Verified 03/08/25 13:15) Medication List - Last Reconciled 03/08/25 by Juvencio Cortes MD atorvastatin 10 mg PO BEDTIME 90 days cholecalciferol (vitamin D3) 2,000 units PO DAILY 90 days levothyroxine 137 mcg PO DAILY 90 days meloxicam 15 mg PO DAILY multivitamin (Multiple Vitamins tablet) 1 tab PO DAILY 90 days pramipexole 1.5 mg PO BEDTIME Tobacco use date assessed: 03/08/25 Dental Screening Dental Screen Date: 03/08/25 Did you have a dental visit in the last 12 months?: Yes Did you have a dental problem in the last 6 months where you did not have access to dental care?: No Was dental information given to patient?: Patient has dentist HPI 4 months HPI Details Patient comes in today for her follow-up visit States that she feels okay She denies any headaches or dizziness Denies any chest pains, no shortness of breath No nausea/vomiting, no abdominal pain No change in bowel habits noted She had her follow-up labs done last week - to discuss her results [facility] Medical History Intellectual disability Osteoarthritis of left shoulder Overweight (BMI 25.0-29.9) Depression Restless leg syndrome GERD without esophagitis Impaired fasting glucose Pure hypercholesterolemia Post-surgical hypothyroidism Vitamin D deficiency Surgical History Hx of thyroidectomy No pertinent past surgical history Family History Father Diabetes Mother Diabetes Hypertension Social History Housing: Apartment Alcohol intake: never Patient Tobacco Use Status: Never used Tobacco e-Cigarette/Vaping Use: Never Used Second Hand Smoke Exposure: No service: No Current occupational status: disabled Cognitive needs: No Hearing needs: No Vision needs: No Questionnaire PHQ-9 Over the last 2 weeks, how often have you been bothered by any of the following problems? 1. Little interest or pleasure in doing things: not at all 2. Feeling down, depressed, or hopeless: several days 3. Trouble falling or staying asleep, or sleeping too much: not at all 4. Feeling tired or having little energy: not at all 5. Poor appetite or overeating: not at all 6. Feeling bad about yourself - or that you are a failure or have let yourself or your family down: more than half the days 7. Trouble concentrating on things, such as reading the newspaper or watching television: more than half the days 8. Moving or speaking so slowly that other people could have noticed. Or the opposite - being so fidgety or restless that you have been moving around a lot more than usual: more than half the days 9. Thoughts that you would be better off or of hurting yourself in some way: nearly every day Total score: 10 Depression Screening Interpretation: Positive Depression Screening Follow-up: Follow-up Visit Requested and Declines treatment Depression Screening Done: Yes 64370 - PHQ-9 Billing: Yes Source: Developed by Drs. Xavi Chan, Shelby Arenas, Christopher Gaspar and colleagues, with an educational samuel from [employer]. Thrive Questionnaire Date Thrive assessed: 03/08/25 I am a: Patient What is your living situation today?: I have a steady place to live Within the past 12 months, did the food you bought not last and you didn't have the money to get more?: Sometimes True Within the past 12 months, did you worry whether your food would run out before you got money to buy more?: Sometimes True Do you have trouble paying for medicines?: No Do you have trouble getting transportation to medical appointments?: No Do you have trouble paying your heating and electricity bill?: No Do you have trouble taking care of your child, family member or friend?: No Do you have trouble with day-to-day activities such as bathing, preparing meals, shopping, managing finances, etc.?: No Are you currently unemployed and looking for a job?: Yes Are you interested in more education?: Yes Please select the resources that you would like help with: None Currently or been in a relationship where the following occur: No concerns reported THRIVE Score: 2 AUDIT C Alcohol Use Questionnaire (AUDIT-C) 1. How often do you have a drink containing alcohol?: Never 3. How often do you have six or more drinks on one occasion?: Never Total Score: 0 Score Reviewed/Action Taken: Yes ARLEN-7 AMB Questionnaire ARLEN-7 Date ARLEN - 7 assessed: 03/08/25 Feeling nervous, anxious, or on edge: 0 = Not at all Not being able to stop or control worryin = More than half the days Worrying too much about different things: 2 = More than half the days Trouble relaxin = More than half the days Being so restless that it is hard to sit still: 2 = More than half the days Becoming easily annoyed or irritable: 2 = More than half the days Feeling afraid as if something awful might happen: 2 = More than half the days Total ARLEN-7 score (0-4 normal; 5-9 mild; 10-14 moderate; 15-21 severe): 12 Source: Developed by Drs. Xavi Chan, Shelby Arenas, Christopher Gaspar and colleagues, with an educational sameul from [employer]. Review of Systems Const Denies chills, Denies fatigue, Denies fever(s) and Denies headache(s) ENT Denies dysphagia, Denies dizziness, Denies otalgia, Denies headache(s), Denies neck pain, Denies odynophagia and Denies sore throat Card Denies chest pain, Denies palpitations and Denies dyspnea Resp Denies chest congestion, Denies cough and Denies dyspnea GI Denies abdominal pain, Denies constipation, Denies dysphagia, Denies heartburn, Denies diarrhea, Denies nausea, Denies odynophagia and Denies vomiting Denies difficulty voiding, Denies dysuria and Denies urinary urgency Musc Denies back pain and Denies neck pain Skin/Breast Denies rash Neuro Denies dizziness and Denies headache(s) Endo Denies fatigue and Denies palpitations Physical exam (Primary Care) Vital Signs: Last Vital Signs Pulse 79 03/08/25 12:45 BP 118/76 03/08/25 12:45 Pulse Ox 96 03/08/25 12:45 Oxygen Delivery Method Room Air 03/08/25 12:45 BMI result Body Mass Index 28.2 Tobacco/Smoking Status: Tobacco use Status Tobacco use date assessed 03/08/25 03/08/25 12:47 Patient Tobacco Use Status Never used Tobacco 03/08/25 12:47 e-Cigarette/Vaping Use Never Used 03/08/25 12:47 PHQ-9: PHQ-9 Score PHQ-9: Total score 10 03/08/25 13:21 Depression Screening Interpretation: Positive Depression Screening Follow-up: Follow-up Visit Requested and Declines treatment Thrive Assessment: Date of Thrive Assessment Date Thrive assessed 03/08/25 03/08/25 12:47 Currently or been in a relationship where the following occur: No concerns reported Const General: no acute distress and alert HENMT Ears: TM's normal bilaterally and EAC's normal Throat: Yes posterior oropharynx normal and Yes tonsils normal (no TP congestion) Neck Neck: Yes supple and No lymphadenopathy Thyroid: Thyroid normal Resp Auscultation: clear to auscultation bilaterally, no rales and no wheezes Cardio Rate: regular rate Rhythm: regular rhythm Heart sounds: no murmurs GI Palpation (GI): Soft to palpation and nontender Auscultation: normal bowel sounds General: Yes no CVA tenderness Back/Spine/Pelvis Back: no CVA tenderness Thoracic/Lumbar Spine: No lumbar spinal tenderness Skin Rashes: no rashes Extrem General: Yes no clubbing, cyanosis or edema Left upper extremity: shoulder/upper arm Details: tenderness (mild) Location: of the A-C joint and normal ROM Results Reviewed Results Reviewed: Laboratory Tests 03/01/25 03/01/25 08:36 08:41 WBC 4.5 L Hgb 13.3 Hct 40.5 Plt Count 309 Sodium 143 Potassium 4.3 Creatinine 0.90 Estimated GFR > 60 Fasting Glucose 105 H Hemoglobin A1c % 5.9 Calcium 9.6 AST 25 ALT 21 Triglycerides 165 H Cholesterol 288 H LDL Cholesterol, Calc 181 H HDL Cholesterol 74 25-OH Vitamin D Total 28.7 L TSH 14.34 H Free T4 1.07 Ur Specific [place] 1.020 Urine Protein Negative Urine Glucose (UA) Negative Urine Blood Negative Urine Nitrite Negative Ur Leukocyte Esterase Negative Coding Level of Care Code Est Pt Level 4 (00906) Diagnoses Pure hypercholesterolemia E78.00 Post-surgical hypothyroidism E89.0 Impaired fasting glucose R73.01 GERD without esophagitis K21.9 Vitamin D deficiency E55.9 Osteoarthritis of left shoulder, unspecified osteoarthritis type M19.012 Osteoarthritis type: unspecified Restless leg syndrome G25.81 Intellectual disability F79 Episode of recurrent major depressive disorder, unspecified depression episode severity F33.9 Active/Remission status: currently active Depression Type: major depressive disorder Major depression episode severity: unspecified Major depression recurrence: recurrent Overweight (BMI 25.0-29.9) E66.3 Additional Codes PHQ-9 - 18429 - PHQ-9 Billing: Yes ([id number]) Assessment & Plan Assessment & Plan (1) Pure hypercholesterolemia: Code(s): E78.00 - Pure hypercholesterolemia, unspecified Category: Medical Plan: Results of her labs done last week reviewed and discussed with patient - she is cautioned that her cholesterol numbers have again increased significantly from previous Reinforced low cholesterol diet Will go ahead and increase her Atorvastatin from 10 mg to 20 mg QD Will recheck her labs and fasting lipids in 4 months for follow-up (2) Post-surgical hypothyroidism: Code(s): E89.0 - Postprocedural hypothyroidism Category: Medical Plan: Her TFTs are normal on her recent labs Continue Levothyroxine 137 mcg QD Patient used to see Dr. Keen for endocrinology follow up but has not been back to see him in a couple of years now - was reportedly told that her PCP can just continue to manage her thyroid and to see them again on an as-needed basis Will have her recheck her TFTs and other labs in 4 months for follow up (3) Impaired fasting glucose: Code(s): R73.01 - Impaired fasting glucose Category: Medical Plan: Patient's FBS was slightly elevated again at 105 mg/dL on her recent labs; her HgbA1c also remains slightly up at 5.9% (was previously at 5.9% a few months ago as well) Reinforced low calorie/low carb diet; exercise as tolerated (4) GERD without esophagitis: Code(s): K21.9 - Gastro-esophageal reflux disease without esophagitis Category: Medical Plan: Dietary restrictions reinforced (5) Vitamin D deficiency: Code(s): E55.9 - Vitamin D deficiency, unspecified Category: Medical Plan: Continue Vitamin D3 2000 units QD (6) Osteoarthritis of left shoulder: Code(s): M19.012 - Primary osteoarthritis, left shoulder Category: Medical Qualifiers: Osteoarthritis type: unspecified Qualified Code(s): M19.012 - Primary osteoarthritis, left shoulder Plan: X-rays of the left shoulder done a couple of years ago revealed (+) mild OA over the left AC joint Continue Meloxicam 15 mg QD with food PRN for pain Have recommended physical therapy if her shoulder continues to bother her - patient will call for referral when needed (7) Restless leg syndrome: Code(s): G25.81 - Restless legs syndrome Category: Medical Plan: Continue Pramipexole 1.5 mg Q HS (8) Intellectual disability: Comment: Patient is intellectually handicapped/challenged - 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 Family states that she never did get to complete school (only finished 3rd grade) and is on permanent disability as a result of this Code(s): F79 - Unspecified intellectual disabilities Category: Medical Plan: Patient's sister is her HCP and helps her make decisions regarding her health and medical issues (9) Depression: Code(s): F32.9 - Major depressive disorder, single episode, unspecified Category: Medical Qualifiers: Active/Remission status: currently active Depression Type: major depressive disorder Major depression episode severity: unspecified Major depression recurrence: recurrent Qualified Code(s): F33.9 - Major depressive disorder, recurrent, unspecified Plan: She was on Citalopram 10 mg QD in the past but patient came off her Rx on her own a couple of years ago and reportedly has not had any increase in her depression since States that she will call for Rx if her depression starts to flare up again (10) Overweight (BMI 25.0-29.9): Code(s): E66.3 - Overweight Category: Medical Plan: Reinforced diet/exercise as tolerated/lose weight Plan Follow up in 4 months Orders: Orders Complete Blood Count Auto Diff 4 Months D64.9 - Anemia, unspecified Comprehensive [place]. Panel Fast 4 Months E78.00 - Pure hypercholesterolemia, unspecified Lipid Panel 4 Months E78.00 - Pure hypercholesterolemia, unspecified Thyroid Stimulating Hormone 4 Months E03.9 - Hypothyroidism, unspecified Vitamin B12 and Folate 4 Months E53.8 - Deficiency of other specified B group vitamins Thyroid Peroxidase Antibodies 4 Months R79.89 - Other specified abnormal findings of blood chemistry Free T4 (Free Thyroxine) 4 Months E03.9 - Hypothyroidism, unspecified UA CC w/rflx Micro + Cult 4 Months R30.0 - Dysuria Vitamin D 25-OH Total 4 Months E55.9 - Vitamin D deficiency, unspecified Medications: Changed From atorvastatin 10 mg PO BEDTIME 90 days 90 tabs 1RF To atorvastatin 20 mg PO BEDTIME 90 tabs 1RF 90 days
--- OUTSIDE RECORDS SUMMARY | 2025-03-08 15:19 | XMS_ITS | Patient Health Record ---
Author Organization [facility] [place] Address [address] [facility] [place] [address] Care Team Providers Care Air Analyst Name Role Phone Sebastian MACHADO, Juvencio Primary Care Provider Unaolga ilsharon Black Sulema Unavailable [phone] Allergies No Known Allergies Results Component Value [...] W/U Status Risk Notes Problem Viral wart (53771339) Other viral warts (B07.8) Active confirmed Problem Tendinitis of right posterior tibial tendon ([id number] [id number]) Posterior tibial tendinitis of right lower extremity (M76.821) Active confirmed Response to treatment - Improvement Vital Signs Blood pressure diastolic 80 mm Hg 12/06/2024 Height 5ft4in in 12/06/2024 Blood pressure systolic 133 mm Hg 12/06/2024 Weight 166 lbs 12/06/2024 BMI 28.49 kg/m2 12/06/2024 Procedures Procedure Date Ordered Date Performed Result Body Sit e 98943-MHBFEFG NAIL, -05/27/2024 N/A 81771-Jqor Destruction, -05/27/2024 N/A 92475-LVVKQTI NAIL, -08/30/2024 N/A 45715-Zowm Destruction, -08/30/2024 N/A 11228-AULSKPZ NAIL, -12/06/2024 N/A 24243-Ayzj Destruction, -12/06/2024 N/A Encounters Encounter Location Date [facility] [address] [address] 05/27/2024 Sulema Black Plantar fascial fibromatosis M72.2 ; Other viral warts B07.8 ; Pain in left foot M79.672 ; Pain in right foot M79.671 ; Other myositis, left ankle and foot M60.872 ; Other myositis of right foot M60.871 ; Tinea unguium B35.1 ; Pain in right toe(s) M79.674 and Pain in left toe(s) M79.675 [facility] [address] 08/30/2024 Sulema Black Other viral warts B07.8 [...] and Pes planus of left foot M21.42 [facility] [address] [address] 12/06/2024 Sulema Pérez Other viral warts B07.8 [...] Treatment Pending Test Test Name Order Date 40748-ZRIJFZX NAIL, 1-10/13/2023 06553-GQPJORY NAIL, 1-5 02/09/2024 30963-EICTAKX NAIL, 1-5 05/27/2024 83954-YYCLWMA NAIL, 1-5 08/30/2024 84409-LGMMDTW NAIL, -5 12/06/2024 72849-Qtre Destruction, -14 12/06/2024 21075-Wtph Destruction, -14 08/30/2024 39913-Jqps Destruction, -05/27/2024 02598-Gkzo Destruction, -02/09/2024 89981-Btvy Destruction, 05-1810/13/2023 64000-Laxd Destruction, 05-1809/17/2021 79727-Htnl Destruction, 05-1812/10/2021 98221-Znso Destruction, -03/04/2022 41617-Rsem Destruction, 05-1807/11/2022 73386-Herl Destruction, 05-1810/14/2022 39435-Qijg Destruction, 05-1802/13/2023 19151-Qarq Destruction, 05-1806/16/2023 54867- Debride <25 sq cm 07/11/2022 05712 I&D ABSCESS- SIMPLE,SINGLE 022 Next Appt Details Provider Name:Sulema Pérez , 03/14/2025 01:30:00 PM, [address] [facility], [place], [address], Insurance Providers Payer Name Payer Address Payer Phone Subscriber Number Group Number Insured Name Patient Relationship to Insured Coverage Start Date Coverage End Date [facility] [employer] Claims [address] [place] [address] [id number] Lara Felipe Self - patient is the [...]
--- OUTSIDE RECORDS SUMMARY | 2025-03-08 15:19 | XMS_ITS | Patient Health Record ---
Author Organization [facility] Address [address] [place] [address] Care Team Providers Care Cottage Attendant Name Role Phone Juvencio Cortes MD Primary Care Provider Xavi Mulligan Unavailable [phone] Reason For Referral No Information Medications Medication [...] W/U Status Risk Notes Problem Pre-surgery evaluation (339483398) Other specified pre-operative examination (V72.83) Active confirmed Problem Colon cancer screening (767537069) Colon cancer screening (V76.51) Active confirmed Plan Of Treatment Future Test Test Name Order Date COLONOSCOPY 12/30/2014 Insurance Providers Payer Name Payer Address Payer Phone Subscriber Number Group Number Insured Name Patient Relationship to Insured Coverage Start Date Coverage End Date MEDICARE OF [place] [address] [place] [id number] COURTNEY EDWARDS Self - patient is the insured [employer] OF [facility] [address] [place] [address] [id number] COURTNEY EDWARDS Self - patient is the insured Medical (General) History Medical History History ICD Code Denies AK,DM,CVA,Lung disease,renal dise ase 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
== END 2025-03-08 13:27 | disposition home or self-care (01) ==
LOC: HO.HMCH 12:38
PROVIDERS: PCP Internal Medicine; Visit Provider Internal Medicine
DX: E78.00 Pure hypercholesterolemia, unspecified (principal); E89.0 Postprocedural hypothyroidism; R73.01 Impaired fasting glucose; K21.9 Gastro-esophageal reflux disease without esophagitis; E55.9 Vitamin D deficiency, unspecified; M19.012 Primary osteoarthritis, left shoulder; G25.81 Restless legs syndrome; F79 Unspecified intellectual disabilities; F33.9 Major depressive disorder, recurrent, unspecified; E66.3 Overweight

== ENCOUNTER → 2025-03-08 12:37 | Outpatient (BNVA) | payer OTHER, SELFPAY | PROVIDERS: PCP Internal Medicine; Visit Provider Internal Medicine | DX: K21.9 Gastro-esophageal reflux disease without esophagitis (principal); E78.00 Pure hypercholesterolemia, unspecified; E89.0 Postprocedural hypothyroidism; R73.01 Impaired fasting glucose; E55.9 Vitamin D deficiency, unspecified; M19.012 Primary osteoarthritis, left shoulder; G25.81 Restless legs syndrome; F79 Unspecified intellectual disabilities; F33.9 Major depressive disorder, recurrent, unspecified; E66.3 Overweight | CPT/HCPCS: 96127; 99212 ==